=== PATIENT | female | born 1955 | race Caucasian/White ===

== ENCOUNTER → 2016-08-12 | Outpatient (CLI) | payer BC ==
[~2016-08-12] MED LIST: BACL5TA PO; COZA50TA PO; LEVO25TA5 PO; LIDO5OI EXT; LYRI100C10 PO; METO50TA2 PO; NEUR100C PO; OMEGCAP9 PO; PROB1TAB PO; PROZ20CA11 PO; ROBA750T4 PO; VALI5TAB PO; VITA100072 PO; VITA20008 PO; VITA400T15 PO; curamed PO; curamin PO
--- NOTE | 2016-08-18 00:26 | ECWPNPC ---
PATIENT NAME: ASHA FLOWER : 1955 GENDER: FEMALE VISIT DATE: 08/12/2016 DISCHARGE DATE: 08/12/16 1530 VISIT LOCKED DATE TIME: PHYSICIAN: MASHA AREVALO RESOURCE: MASHA AREVLAO REASON FOR APPOINTMENT 1. FIBROMIALGIA HISTORY OF PRESENT ILLNESS HISTORY OF PRESENT ILLNESS: HERE FOR F/U AND MANAGEMENT OF CHRONIC PAIN.PAIN IS ALL OVER BODY BUT WORSE AREA OF PAIN IS KNEE AND RIGHT ARM TAKING HYDROCODONE 5/325 BID.THIS MEDICATION IS NOT VERY HELPFUL ANYMORE.UNDER A TREMENDOUS AMOUNT OF STRESS.RATING PAIN VAS 8/10. FALL RISK SCREENING: SCREENING :NO FALLS IN THE PAST YEAR CURRENT MEDICATIONS TAKING METOPROLOL SUCCINATE 25 MG TABLET EXTENDED RELEASE 24 HOUR 1 TABLET ORALLY TWICE A DAY TAKING LOSARTAN POTASSIUM 50 MG TABLET 1 TABLET ORALLY ONCE A DAY TAKING LEVOTHYROXINE SODIUM 50 MCG TABLET 1 TABLET ORALLY EVERY OTHER DAY TAKING VITAMIN B12 1000 UNITS TABLET 1 TABLET ORALLY ONCE A DAY TAKING VITAMIN D 5000 UNITS TABLET ORALLY DAILY TAKING LEVOTHROID 75 MCG TABLET 1 TABLET ORALLY EVERY OTHER DAY TAKING PROZAC 40 MG CAPSULE 1 CAPSULE IN THE MORNING ORALLY TAKING SYMBICORT 160-4.5 MCG/ACT AEROSOL 2 PUFFS INHALATION TWICE A DAY NEEDED TAKING ALBUTEROL SULFATE (2.5 MG/3ML) 0.083% NEBULIZATION SOLUTION 3 ML INHALATION EVERY 6 HOURS NEEDED FOR SHORTNESS OF BREATH TAKING HYDROCODONE-ACETAMINOPHEN 5-325 MG TABLET 1 TABLET NEEDED FOR PAIN MDD2 ORALLY EVERY 8 HRS MDD2 NOT-TAKING DELSYM 30 MG/5ML LIQUID EXTENDED RELEASE 10 ML NEEDED ORALLY EVERY 12 HRS NOT-TAKING LEVOFLOXACIN 750 MG TABLET 1 TABLET ORALLY ONCE A DAY NOT-TAKING MUCINEX DM MAXIMUM STRENGTH 60-1200 MG TABLET EXTENDED RELEASE 12 HOUR 1 TABLET NEEDED ORALLY TWICE A DAY NOT-TAKING CETIRIZINE HCL 10 MG TABLET 1 TABLET NEEDED ORALLY ONCE A DAY NOT-TAKING FLONASE 50 MCG/DOSE INHALER 2 SPRAYS IN EACH NOSTRIL NASALLY ONCE A DAY MEDICATION LIST REVIEWED AND RECONCILED WITH THE PATIENT PAST MEDICAL HISTORY VITAMIN B12 DEFICIENCY IRRITABLE BOWEL SYNDROME DIVERTICULOSIS ASTHMA ABNORMAL PAP SMEAR/CRYO PANCREATITIS/2004 OBESITY HX. OF PROTEIN AND BLOOD IN URINE-SEE DR. 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 NEW PATIENT PAIN DIARY TODAY'S VISITNOTES FROM 0-10, WHAT LEVEL IS YOUR PAIN TODAY?0 PAIN CLINIC PFS, CLERGY, PUBLIC HEALTH REFERRALS PFS REFERRAL NEEDED?NO CLERGY REFERRAL NEEDED?NO PUBLIC HEALTH REFERRAL NEEDED?NO WAS THE PROVIDER NOTIFIED OF ANY PERTINENT INFO?NO PFS REFERRAL NEEDED?NO CLERGY REFERRAL NEEDED?NO PUBLIC HEALTH REFERRAL NEEDED?NO WAS THE PROVIDER NOTIFIED OF ANY PERTINENT INFO?NO REVIEW OF SYSTEMS CONSTITUTIONAL: ANY CHANGE IN YOUR MEDICAL CONDITION? NO . CHILLS NO . FEVER NO . INFECTION: DO YOU HAVE NEW INFECTIONS? NO . DO YOU HAVE HISTORY OF MRSA? NO . MUSCULOSKELETAL: ANY NEW PATTERNS OF PAIN OR NUMBNESS? YES, RIGHT HAND WITH DIFFICULTLY LIFTING, TYPING, AND WRITING. APPOINTMENT WITH ORTHOPEADICS REGARDING THIS. . GASTROENTEROLOGY: ANY NEW CHANGE IN BOWEL CONTROL? NO . GENITOURINARY: ANY NEW CHANGE IN BLADDER CONTROL? NO . IS THERE A CHANCE YOU COULD BE ? NO . HEMATOLOGY/LYMPH: DO YOU TAKE ANY BLOOD THINNERS? (FOR EXAMPLE- COUMADIN, PLAVIX, AGGRENOX, PLATEL, PRADAXA, OR XARELTO) NO . WHEN WAS YOUR LAST DOSE? DATE: TIME: . NEUROLOGY: HAVE YOU FALLEN IN THE PAST 6 MONTHS? NO . ANY NEW EXTREMITY NUMBNESS OR WEAKNESS? NO . CARDIOLOGY: DO YOU HAVE A PACEMAKER OR DEFIBRILLATOR? NO . RESPIRATORY: HAVE YOU BEEN SICK IN THE PAST WEEK? NO . FEVER NO . FLU LIKE SYMPTOMS? NO . COUGH NO . INTEGUMENTARY: DO YOU HAVE ANY RASHES OR OPEN SORES? NO . ALLERGIC/IMMUNO: ARE YOU ALLERGIC TO SHELLFISH OR IV DYE? NO . ANY NEW ALLERGIES? NO . PSYCHIATRIC: DO YOU HAVE THOUGHTS OF HURTING YOURSELF OR SOMEONE ELSE? NO . ARE YOU ABUSED, NEGLECTED, OR IN AN UNSAFE ENVIRONMENT? NO . ENDOCRINOLOGY: ARE YOU DIABETIC? NO . OTHER: DO YOU NEED ANY PRESCRIPTIONS? NO . IF YES, PLEASE LIST: ____ . ANY NEW PROBLEMS WITH YOUR MEDICATIONS? NO . WHEN DID YOU LAST EAT? ____ . WHEN DID YOU LAST DRINK? ____ . WHAT DID YOU LAST DRINK? ____ . NAME OF PERSON DRIVING YOU HOME? ____ . DO YOU HAVE ANY OTHER QUESTIONS OR CONCERNS NO . REVIEWED BY: PROVIDER: MASHA AGUIRRE . VITAL SIGNS WT 350.8 LBS, HT 66.5 IN, BMI 55.77 INDEX, BP 157/88 MM HG, HR 66 /MIN, RR 18 /MIN, TEMP 98.7 F, OXYGEN SAT % 96, NA INITIALS TL 1427, REVIEWED BY: CS. EXAMINATION CERVICAL SPINE/NECK: RANGE OF MOTION OF NECK:LIMITED IN ALL DIRECTIONS. MOTOR STRENGTH:DIMINISHED BILAT. UPPER EXTREMITIES. MYOFASCIAL TRIGGER POINTS:BILATERAL TRAPEZIUS R>L. ASSESSMENTS MYALGIA - M79.1 (PRIMARY) CHRONIC PRESCRIPTION OPIATE USE - Z79.891 TREATMENT MYALGIA REFILL HYDROCODONE-ACETAMINOPHEN TABLET, 5-325 MG, 1 TABLET NEEDED FOR PAIN MDD2, ORALLY, EVERY 8 HRS MDD2, 30 DAY(S), 60, REFILLS 0 START LYRICA CAPSULE, 75 MG, 1 CAPSULE, ORALLY, TWICE A DAY, 30 DAY(S), 60 CAPSULE, REFILLS 5 START NORCO TABLET, 7.5-325 MG, 1, ORALLY, Q8H PRN MDD3, 30 DAY(S), 90, REFILLS 0 NOTES: ISTOP REGISTRY REVIEWED AND DEMNOSTRATES COMPLLIANCE. BRINGS IN MEDICATIONS WHICH IS APPROPRIATE FOR WHAT WAS DISPENSED. RECENT URINE TOXICOLOGY REVIEWED. NO UNAUTHORIZED MEDICATIONS. NO ILLICIT SUBSTANCES AND PRESCRIBED MEDICATIONS WERE PRESENT. , RISKS AND BENEFITS OF NARCOTIC/OPIOD MEDICATIONS WERE REVIEWED WITH PATIENT - THIS INCLUDES BUT IS NOT LIMITED TO RISK OF DEPENDANCE/DEVELOPMENT OF ADDICTION, MOOD DISTURBANCE AND DEPRESSION, OSTEOPOROSIS, HORMONAL AND LABIDAL CHANGES, RESPIRATORY DEPRESSION AND . PATIENT IS ADVISED NOT TO DRIVE WHILE ON THESE MEDICATIONS. PROCEDURE CODES FA211 ESTABILISHED PATIENT [facility] CHARGE FOLLOW UP 2 MONTHS ELECTRONICALLY SIGNED BY TIMOTHY ALBERT ON 08/17/2016 AT 01:12 PM EST DISCLAIMER : THIS IS A VISIT SUMMARY EXTRACTED FROM THE [employer] CHART. IT IS NOT A COPY OF THE [employer] PROGRESS NOTE. [facility]
== END ==
LOC: M PAIN 14:40
PROVIDERS: ATTEND Nurse Practitioner Family
DX: Z09 Encounter for follow-up examination after completed treatment for conditions other than malignant neoplasm (principal); G89.29 Other chronic pain; M79.1 Myalgia; D51.0 Vitamin B12 deficiency anemia due to intrinsic factor deficiency; K58.9 Irritable bowel syndrome, unspecified; J45.909 Unspecified asthma, uncomplicated; E66.9 Obesity, unspecified; Z68.43 Body mass index [BMI] 50.0-59.9, adult; G47.30 Sleep apnea, unspecified; E07.9 Disorder of thyroid, unspecified; Z88.2 Allergy status to sulfonamides; Z79.891 Long term (current) use of opiate analgesic; Z79.899 Other long term (current) drug therapy

== ENCOUNTER → 2016-10-11 | Outpatient (CLI) | payer BC ==
[~2016-10-11] MED LIST changes: +HYDR-3713 PO; +LEVO75TA4 PO
--- NOTE | 2016-10-21 00:43 | ECWPNPC ---
PATIENT NAME: ASHA FLOWER : 1955 GENDER: FEMALE VISIT DATE: 10/11/2016 DISCHARGE DATE: 10/11/16 1520 VISIT LOCKED DATE TIME: PHYSICIAN: MASHA AREVALO RESOURCE: MASHA AREVALO REASON FOR APPOINTMENT 1. FOLLOWUP HISTORY OF PRESENT ILLNESS HISTORY OF PRESENT ILLNESS: HERE FOR F/U AND MANAGEMENT OF CHRONIC PAIN.PAIN IS ALL OVER BODY BUT WORSE AREA OF PAIN IS KNEE AND RIGHT ARM .STARTED ON LYRICA 75MG BID AT LAST VISIT.WHEN SHE WENT TO BID SHE NOTED SOME SWELLING SO SHE REDUCED TO ONCE DAILY AT BEDTIME.DOES REPORT SOME IMPROVEMENT IN ABILITY TO SLEEP.C/O FEELING FATIGUED AND IN A FOG.IS SCHEDULED FOR SURGERY ON RIGHT WRIST THIS MONTH.TAKING HYDROCODONE 5/325 BID.THIS MEDICATION IS NOT VERY HELPFUL ANYMORE.UNDER A TREMENDOUS AMOUNT OF STRESS.RATING PAIN VAS 7/10.DISCUSSED MEDICATION AND TREATMENT OPTIONS. PAIN THE PATIENT DESCRIBES THE PAIN... THE PATIENT DESCRIBES THE PAIN... FALL RISK SCREENING: SCREENING :NO FALLS IN THE PAST YEAR CURRENT MEDICATIONS TAKING METOPROLOL SUCCINATE 25 MG TABLET EXTENDED RELEASE 24 HOUR 1 TABLET ORALLY TWICE A DAY TAKING LOSARTAN POTASSIUM 50 MG TABLET 1 TABLET ORALLY ONCE A DAY TAKING LEVOTHYROXINE SODIUM 50 MCG TABLET 1 TABLET ORALLY EVERY OTHER DAY TAKING VITAMIN B12 1000 UNITS TABLET 1 TABLET ORALLY ONCE A DAY TAKING VITAMIN D 5000 UNITS TABLET ORALLY DAILY TAKING LEVOTHROID 75 MCG TABLET 1 TABLET ORALLY EVERY OTHER DAY TAKING PROZAC 40 MG CAPSULE 1 CAPSULE IN THE MORNING ORALLY TAKING SYMBICORT 160-4.5 MCG/ACT AEROSOL 2 PUFFS INHALATION TWICE A DAY NEEDED TAKING ALBUTEROL SULFATE (2.5 MG/3ML) 0.083% NEBULIZATION SOLUTION 3 ML INHALATION EVERY 6 HOURS NEEDED FOR SHORTNESS OF BREATH TAKING LYRICA 75 MG CAPSULE 1 CAPSULE ORALLY DAILY TAKING HYDROCODONE-ACETAMINOPHEN 5-325 MG TABLET 1 TABLET NEEDED FOR PAIN MDD2 ORALLY EVERY 8 HRS MDD2 NOT-TAKING NORCO 7.5-325 MG TABLET 1 ORALLY Q8H PRN MDD3 NOT-TAKING DELSYM 30 MG/5ML LIQUID EXTENDED RELEASE 10 ML NEEDED ORALLY EVERY 12 HRS NOT-TAKING LEVOFLOXACIN 750 MG TABLET 1 TABLET ORALLY ONCE A DAY NOT-TAKING MUCINEX DM MAXIMUM STRENGTH 60-1200 MG TABLET EXTENDED RELEASE 12 HOUR 1 TABLET NEEDED ORALLY TWICE A DAY NOT-TAKING CETIRIZINE HCL 10 MG TABLET 1 TABLET NEEDED ORALLY ONCE A DAY NOT-TAKING FLONASE 50 MCG/DOSE INHALER 2 SPRAYS IN EACH NOSTRIL NASALLY ONCE A DAY MEDICATION LIST REVIEWED AND RECONCILED WITH THE PATIENT PAST MEDICAL HISTORY VITAMIN B12 DEFICIENCY IRRITABLE BOWEL SYNDROME DIVERTICULOSIS ASTHMA ABNORMAL PAP SMEAR/CRYO PANCREATITIS/2004 OBESITY HX. OF PROTEIN AND BLOOD IN URINE-SEE DR. PAPPAS MANRIE WITH CPAP FIBROMYALGIA THYROID ISSUES NERVE CONDUCTION TEST WITH NEUROLOGY WAS NEGATIVE ALLERGIES SULFAMETHOXAZOLE: GETS YEASTS INFECTIONS EASILY ON THIS: SIDE EFFECTS SOCIAL HISTORY GENERAL: PAIN CLINIC PFS, CLERGY, PUBLIC HEALTH REFERRALS CLERGY REFERRAL NEEDED?NO WAS THE PROVIDER NOTIFIED OF ANY PERTINENT INFO?NO PFS REFERRAL NEEDED?NO PUBLIC HEALTH REFERRAL NEEDED?NO PATIENT: ____. REVIEW OF SYSTEMS CONSTITUTIONAL: ANY CHANGE IN YOUR MEDICAL CONDITION? YES, FORGETFULLNESS THE PAST MONTH . RECENT ILLNESS DENIES . CHILLS NO . FEVER NO . WEIGHT LOSS DENIES . INFECTION: DO YOU HAVE NEW INFECTIONS? NO . DO YOU HAVE HISTORY OF MRSA? NO . MUSCULOSKELETAL: ANY NEW PATTERNS OF PAIN OR NUMBNESS? YES . GASTROENTEROLOGY: ANY NEW CHANGE IN BOWEL CONTROL? NO . GENITOURINARY: ANY NEW CHANGE IN BLADDER CONTROL? NO . IS THERE A CHANCE YOU COULD BE ? NO . HEMATOLOGY/LYMPH: DO YOU TAKE ANY BLOOD THINNERS? (FOR EXAMPLE- COUMADIN, PLAVIX, AGGRENOX, PLATEL, PRADAXA, OR XARELTO) NO . WHEN WAS YOUR LAST DOSE? DATE: TIME: . NEUROLOGY: HAVE YOU FALLEN IN THE PAST 6 MONTHS? NO . ANY NEW EXTREMITY NUMBNESS OR WEAKNESS? NO . CARDIOLOGY: DO YOU HAVE A PACEMAKER OR DEFIBRILLATOR? NO . CHEST PAIN DENIES . SHORTNESS OF BREATH DENIES . RESPIRATORY: HAVE YOU BEEN SICK IN THE PAST WEEK? NO . FEVER NO . FLU LIKE SYMPTOMS? NO . COUGH NO, DENIES . SHORTNESS OF BREATH DENIES . INTEGUMENTARY: DO YOU HAVE ANY RASHES OR OPEN SORES? NO . ALLERGIC/IMMUNO: ARE YOU ALLERGIC TO SHELLFISH OR IV DYE? NO . ANY NEW ALLERGIES? NO . PSYCHIATRIC: DO YOU HAVE THOUGHTS OF HURTING YOURSELF OR SOMEONE ELSE? NO . ARE YOU ABUSED, NEGLECTED, OR IN AN UNSAFE ENVIRONMENT? NO . ENDOCRINOLOGY: ARE YOU DIABETIC? NO . OTHER: DO YOU NEED ANY PRESCRIPTIONS? YES . IF YES, PLEASE LIST: PAIN MED . ANY NEW PROBLEMS WITH YOUR MEDICATIONS? NO . WHEN DID YOU LAST EAT? ____ . WHEN DID YOU LAST DRINK? ____ . WHAT DID YOU LAST DRINK? ____ . NAME OF PERSON DRIVING YOU HOME? ____ . DO YOU HAVE ANY OTHER QUESTIONS OR CONCERNS YES, RIGHT WRIST SURGERY 10/19/16 . REVIEWED BY: PROVIDER: MASHA AGUIRRE . VITAL SIGNS WT 346.2 LBS, HT 66.5 IN, BMI 55.04 INDEX, BP 123/78 MM HG, HR 73 /MIN, RR 16 /MIN, TEMP 98.8 F, OXYGEN SAT % 94%, NA INITIALS SJ 1442, REVIEWED BY: CS. EXAMINATION CERVICAL SPINE/NECK: RANGE OF MOTION OF NECK:LIMITED IN ALL DIRECTIONS. MOTOR STRENGTH:DIMINISHED BILAT. UPPER EXTREMITIES. MYOFASCIAL TRIGGER POINTS:BILATERAL TRAPEZIUS R>L. GENERAL EXAMINATION: LUNGS:LUNG SOUNDS ARE CLEAR. HEART:HEART RATE REGULAR. MUSCULOSKELETAL:*, MUSCLE STRENGTH TESTING 11/05 BLE.MULTIPLE AREAS OF TENDER SPOTS BILAT. INDICATIVE OF FIBROMYALGIA. DIAGNOSTIC: . ASSESSMENTS MYALGIA - M79.1 (PRIMARY) CHRONIC PRESCRIPTION OPIATE USE - Z79.891 TREATMENT MYALGIA REFILL HYDROCODONE-ACETAMINOPHEN TABLET, 5-325 MG, 1 TABLET NEEDED FOR PAIN MDD2, ORALLY, EVERY 8 HRS MDD2, 30 DAY(S), 60, REFILLS 0 INCREASE LYRICA CAPSULE, 75 MG, 2, ORALLY, QHS, 30 DAY(S), 60, REFILLS 2 NOTES: ISTOP REGISTRY REVIEWED AND DEMNOSTRATES COMPLLIANCE. BRINGS IN MEDICATIONS WHICH IS APPROPRIATE FOR WHAT WAS DISPENSED. RECENT URINE TOXICOLOGY REVIEWED. NO UNAUTHORIZED MEDICATIONS. NO ILLICIT SUBSTANCES AND PRESCRIBED MEDICATIONS WERE PRESENT. , PATIENT WAS ADVISED TO START A WALKING PROGRAM TO STRENGTHEN LUMBAR PARASPINAL MUSCLES AND IMPROVE MOBILITY. THEY WERE ADVISED THAT THIS WILL IMPROVE WEIGHT LOSS AND ALSO DEPRESSION/FIBROMYALGIA SYMPTOMS. ADVISED TO WALK 10 MINUTES EVERY OTHER DAY ON A FLAT SURFACE. EMPHASIZED THE IMPORTANCE OF DOING THIS CONSISTANTLY AND NOT SPORATICALLY TO AVOID INJURY. STRONG ADVISED NOT TO DO MORE THAN 10 MINUTES EVERY OTHER DSY FOR THE FIRST 4 WEEKS. PROCEDURE CODES FA211 ESTABILISHED PATIENT [facility] CHARGE DISPOSITION & COMMUNICATION FOLLOW UP 4 WEEKS ELECTRONICALLY SIGNED BY TIMOTHY ALBERT ON 10/20/2016 AT 01:14 PM EDT DISCLAIMER : THIS IS A VISIT SUMMARY EXTRACTED FROM THE [employer] CHART. IT IS NOT A COPY OF THE [employer] PROGRESS NOTE. DEIDRE
== END ==
LOC: M PAIN 14:40
PROVIDERS: ATTEND Nurse Practitioner Family
DX: G89.29 Other chronic pain (principal); M79.1 Myalgia; D51.9 Vitamin B12 deficiency anemia, unspecified; K58.9 Irritable bowel syndrome, unspecified; J45.909 Unspecified asthma, uncomplicated; E66.9 Obesity, unspecified; Z68.43 Body mass index [BMI] 50.0-59.9, adult; G47.33 Obstructive sleep apnea (adult) (pediatric); Z88.2 Allergy status to sulfonamides; Z79.899 Other long term (current) drug therapy

== ENCOUNTER → 2016-10-19 | Day surgery (SDC) | payer BC ==
[~2016-10-19] VITALS: Ht 167.6 cm; Wt 155.6 kg
[~2016-10-19] MED LIST changes: +GLYCOPYRROLATE INJ 0.2 MG/ML 2 ML VIAL As Ordered ONE; +HYDROmorphone HCL 1 MG/ML SYRINGE (J1170) As Ordered ONE; +KETOROLAC 30 MG/ML VIAL (J1885) As Ordered ONE; +KETOROLAC 30 MG/ML VIAL (J1885) IV PRN; +LIDOCAINE 2% INJ 100 MG/5 ML SDV (FOR ANES.) As Ordered ONE; +LR 1,000 ML IV SCH; +METOCLOPRAMIDE INJ 10MG/2ML VIAL (J2765) IV PRN; +MIDAZOLAM INJ 2 MG/2 ML VIAL (J2250) As Ordered ONE; +MORPHINE 4 MG/ML 1ML SYRINGE IV PRN; +NEOSTIGMINE 1MG/ML 5 ML SYRINGE (J2710) As Ordered ONE; +NORCO, ANEXSIA 5/325MG TABLET (HYDROcodone/ACETAMINOPHEN) PO PRN; +ONDANSETRON 4MG/2ML VIAL (J2405) As Ordered ONE; +ONDANSETRON 4MG/2ML VIAL (J2405) IV PRN; +PERCOCET 5MG/325MG TAB PO PRN; +PROPOFOL 200 MG/20 ML VIAL As Ordered ONE; +ceFAZolin 1GM INJ (J0690) As Ordered ONE; +fentaNYL 100 MCG/2 ML INJECTION (J3010) As Ordered ONE
[2016-10-19] MEDS: fentaNYL 100 MCG/2 ML INJECTION (J3010) IV PRN ×4 (11:55→12:16)
[2016-10-19] MEDS: HYDROmorphone HCL 1 MG/ML SYRINGE (J1170) IV PRN ×5 (12:36→13:08)
--- NOTE | 2016-10-19 12:46 | RO ---
DATE OF PROCEDURE: 10/19/2016 PREPROCEDURE DIAGNOSIS: Right thumb CMC joint arthritis. POSTPROCEDURE DIAGNOSIS: Right thumb CMC joint arthritis. PROCEDURE: Right thumb CMC joint arthroplasty using a flexor carpi radialis/anchovy technique. SURGEON: Dr. Dhiraj Villa PROCESSING LEAD: Mr. Stalin Alexander. ANESTHESIA: General endotracheal tube anesthetic. COMPLICATIONS: None. ESTIMATED BLOOD LOSS: Less than 20 mL. DESCRIPTION OF PROCEDURE: Antibiotics were given intravenous preoperatively then a successful general endotracheal tube anesthetic was established. A tourniquet was placed on the right arm and not inflated. The right upper extremity was then prepped and draped in the usual sterile fashion, then elevated. After an appropriate time-out, the tourniquet was inflated. I made a small slightly angled incision across the volar radial aspect of the base of the right thumb. Very superficial careful dissection was performed and the small veins were coagulate with the Bovie cautery. I did identify two radial nerves sensory branches, which were protected. I then reflected the abductor polices brevis volarly and incised the capsule of the CMC joint. The carefully sub periosteally dissected around the trapezium bone with a small 64 naknek blade as well as a Crocker elevator and other elevators. I then divided the bone in two with a small osteotome and then took out the volar fragment first taking great care to protect the underlying flexor carpi radialis tendon. The I removed the remaining half in a similar fashion using subperiosteal dissection. Then I removed the piece almost and completely total with some small fragments were removed with the rongeur. I copiously irrigated out this area. I then made a small transverse incision along the volar aspect of the wrist identifying flexor carpi radialis. Then I made another incision more proximal along the forearm, identified the proximal portion of the flexor carpi radialis and then divided it. Then pulled it into the distal wound and then pulled it out from the wound where the trapezium had been resected. I then placed a small #1 silky Polydek suture in the capsule in the base of the wound to secure the anchovy later on. I then used a 3.2 mm drill to drill on the thumb nail surface of the proximal aspect of the thumb metacarpal exiting at the base of the bone and then I expanded it with a 4.5 drill. I then tubularized the flexor carpi radialis end. Then I passed a Gale suture passer through the proximal portion of the metacarpal and then I used the 0 PDS sutures that I used to tubularize the FCR. To pass up through the proximal end of the thumb metacarpal. Then I folded it back onto itself and secured it as such that it folds around the base of the thumb metacarpal holding it as a suspensory ligament. The remaining portion of the flexor carpi radialis tendon was anchovied with two Tyler needles using the previously passed silky Polydek. Then the whole construct was secured with two #3-0 PDS sutures and then I dumped the anchovy deep into the wound after irrigating copiously. Then I secured it by tying silky Polydek over the top of the anchovy. The deep capsule was then closed with interrupted #3-0 PDS suture irrigating in and then we let the tourniquet down and then irrigated again, all the wounds. Then closed the deep subdermal tissues with an interrupted #3-0 PDS and then the skin was closed with a #5-0 nylon sutures and dressed with an Adaptic dry sterile bulky dressing and then a thumb spike 5-inch splint and toni wrap applied. She was then awakened from general endotracheal tube anesthesia after having tolerated the procedure well and transferred to the recovery room in stable condition. There were no intraoperative complications. Mrs. Alexander was critical to the success of the procedure by helping with appropriate soft tissue retraction and distraction as well as helping to close the wound and helping apply the splint. Helping to prepare the patient amongst many other tasks.
[2016-10-19 14:20] VITALS: BP 135/63
== END | disposition home or self-care (01) ==
LOC: M SDC 07:45
PROVIDERS: ATTEND Orthopaedic Surgery
DX: M18.11 Unilateral primary osteoarthritis of first carpometacarpal joint, right hand (principal); E03.9 Hypothyroidism, unspecified; I10 Essential (primary) hypertension; J45.909 Unspecified asthma, uncomplicated; K44.9 Diaphragmatic hernia without obstruction or gangrene; R06.02 Shortness of breath; R06.83 Snoring; G47.33 Obstructive sleep apnea (adult) (pediatric); Z88.2 Allergy status to sulfonamides; Z79.899 Other long term (current) drug therapy; Z87.820 Personal history of traumatic brain injury; Z90.710 Acquired absence of both cervix and uterus; Z96.652 Presence of left artificial knee joint; Z96.692 Finger-joint replacement of left hand
CPT/HCPCS: 25447; J0690; J1170; J1885; J2250; J2405; J2710; J3010

== ENCOUNTER → 2016-11-16 | Outpatient (CLI) | payer BC ==
[~2016-11-16] MED LIST changes: -GLYCOPYRROLATE INJ 0.2 MG/ML 2 ML VIAL As Ordered ONE; -HYDROmorphone HCL 1 MG/ML SYRINGE (J1170) As Ordered ONE; -KETOROLAC 30 MG/ML VIAL (J1885) As Ordered ONE; -KETOROLAC 30 MG/ML VIAL (J1885) IV PRN; -LIDOCAINE 2% INJ 100 MG/5 ML SDV (FOR ANES.) As Ordered ONE; -LR 1,000 ML IV SCH; -METOCLOPRAMIDE INJ 10MG/2ML VIAL (J2765) IV PRN; -MIDAZOLAM INJ 2 MG/2 ML VIAL (J2250) As Ordered ONE; -MORPHINE 4 MG/ML 1ML SYRINGE IV PRN; -NEOSTIGMINE 1MG/ML 5 ML SYRINGE (J2710) As Ordered ONE; -NORCO, ANEXSIA 5/325MG TABLET (HYDROcodone/ACETAMINOPHEN) PO PRN; -ONDANSETRON 4MG/2ML VIAL (J2405) As Ordered ONE; -ONDANSETRON 4MG/2ML VIAL (J2405) IV PRN; -PERCOCET 5MG/325MG TAB PO PRN; -PROPOFOL 200 MG/20 ML VIAL As Ordered ONE; -ceFAZolin 1GM INJ (J0690) As Ordered ONE; -fentaNYL 100 MCG/2 ML INJECTION (J3010) As Ordered ONE
--- NOTE | 2016-11-16 23:41 | ECWPNPC ---
PATIENT NAME: ASHA FLOWER : 1955 GENDER: FEMALE VISIT DATE: 11/16/2016 DISCHARGE DATE: 11/16/16 1042 VISIT LOCKED DATE TIME: PHYSICIAN: MASHA AREVALO RESOURCE: MASHA AREVALO REASON FOR APPOINTMENT 1. CHRONIC PAIN HISTORY OF PRESENT ILLNESS HISTORY OF PRESENT ILLNESS: HERE FOR F/U AND MANAGEMENT OF CHRONIC PAIN.PAIN IS ALL OVER BODY BUT WORSE AREA OF PAIN IS KNEE AND RIGHT ARM .STARTED ON LYRICA 75MG DAILY AT NIGHT AND IS GETTING SOME DAYTIME FOG AND FATIGUE. TAKING HYDROCODONE 5/325 BID.THIS MEDICATION IS NOT VERY HELPFUL ANYMORE.UNDER A TREMENDOUS AMOUNT OF STRESS.RATING PAIN VAS 7/10.DISCUSSED MEDICATION AND TREATMENT OPTIONS. PAIN THE PATIENT DESCRIBES THE PAIN... THE PATIENT DESCRIBES THE PAIN... THE PATIENT DESCRIBES THE PAIN... FALL RISK SCREENING: SCREENING :NO FALLS IN THE PAST YEAR CURRENT MEDICATIONS TAKING METOPROLOL SUCCINATE 25 MG TABLET EXTENDED RELEASE 24 HOUR 1 TABLET ORALLY TWICE A DAY TAKING LOSARTAN POTASSIUM 50 MG TABLET 1 TABLET ORALLY ONCE A DAY TAKING LEVOTHYROXINE SODIUM 50 MCG TABLET 1 TABLET ORALLY EVERY OTHER DAY TAKING VITAMIN B12 1000 UNITS TABLET 1 TABLET ORALLY ONCE A DAY TAKING VITAMIN D 5000 UNITS TABLET ORALLY DAILY TAKING LEVOTHROID 75 MCG TABLET 1 TABLET ORALLY EVERY OTHER DAY TAKING PROZAC 40 MG CAPSULE 1 CAPSULE IN THE MORNING ORALLY TAKING ALBUTEROL SULFATE (2.5 MG/3ML) 0.083% NEBULIZATION SOLUTION 3 ML INHALATION EVERY 6 HOURS NEEDED FOR SHORTNESS OF BREATH TAKING HYDROCODONE-ACETAMINOPHEN 5-325 MG TABLET 1 TABLET NEEDED FOR PAIN MDD2 ORALLY EVERY 8 HRS MDD2 TAKING LYRICA 75 MG CAPSULE 2 ORALLY QHS TAKING FLONASE NEEDED TAKING CLARITIN 10 MG TABLET 1 TABLET ORALLY NEEDED TAKING DOXYCYCLINE HYCLATE 100 MG TABLET 1 TABLET ORALLY EVERY 12 HRS TAKING DIFLUCAN 150 MG TABLET 1 TABLET ORALLY TAKE NOW; REPEAT IN 72 HOURS IF YOUR SYMPTOMS PERSIST NOT-TAKING SYMBICORT 160-4.5 MCG/ACT AEROSOL 2 PUFFS INHALATION TWICE A DAY NEEDED NOT-TAKING NORCO 7.5-325 MG TABLET 1 ORALLY Q8H PRN MDD3 NOT-TAKING DELSYM 30 MG/5ML LIQUID EXTENDED RELEASE 10 ML NEEDED ORALLY EVERY 12 HRS NOT-TAKING LEVOFLOXACIN 750 MG TABLET 1 TABLET ORALLY ONCE A DAY NOT-TAKING MUCINEX DM MAXIMUM STRENGTH 60-1200 MG TABLET EXTENDED RELEASE 12 HOUR 1 TABLET NEEDED ORALLY TWICE A DAY NOT-TAKING CETIRIZINE HCL 10 MG TABLET 1 TABLET NEEDED ORALLY ONCE A DAY NOT-TAKING FLONASE 50 MCG/DOSE INHALER 2 SPRAYS IN EACH NOSTRIL NASALLY ONCE A DAY MEDICATION LIST REVIEWED AND RECONCILED WITH THE PATIENT PAST MEDICAL HISTORY VITAMIN B12 DEFICIENCY IRRITABLE BOWEL SYNDROME DIVERTICULOSIS ASTHMA ABNORMAL PAP SMEAR/CRYO PANCREATITIS/2003 OBESITY HX. OF PROTEIN AND BLOOD IN URINE-SEE DR. PAPPAS MARNIE WITH CPAP FIBROMYALGIA THYROID ISSUES NERVE CONDUCTION TEST WITH NEUROLOGY WAS NEGATIVE ALLERGIES SULFAMETHOXAZOLE: GETS YEASTS INFECTIONS EASILY ON THIS: SIDE EFFECTS SURGICAL HISTORY HYSTERECTOMY WITH CERVICAL PRESERVATION 1996 KNEE REPLACEMENT/LEFT 10/09 T & A CHOLECYSTECTOMY 2003 COLONOSCOPY/POLYP REMOVED/BENIGN 04/13 PARTIAL BOWEL REMOVED FOR CHRONIC DIVERTICULITIS RIGHT WRIST 10/2016 HOSPITALIZATION/MAJOR DIAGNOSTIC PROCEDURE PANCREATITIS SUB DURAL HEMATOMA SURGERY RELATED REVIEW OF SYSTEMS CONSTITUTIONAL: ANY CHANGE IN YOUR MEDICAL CONDITION? YES. PT STATES SHE HAD SURGERY ON RIGHT WRIST 10/2016 TO REPLACE TENDON FOR ARTHRITIS. PT STATES PROCEDURE WAS CALLED &QUOT;AN ANCHOVEY&QUOT;. CAST NOTED TO RIGHT FOREARM. PT STATES LAST VISIT LYRICA WAS INCREASED TO 2 TABLETS NIGHTLY. PT STATES THIS CHANGE MADE HER FEEL SLUGGISH AND CONFUSED THE FOLLOWING DAYS. PT DECREASED DOSE TO 1 NIGHTLY, BUT CONFUSION PERSISTS. PT REPORTS CONFUSION 1-1 1/2 YEARS. PT REPORTS PAIN IS 7/10. PT STATES SHE HAS STARTED WALKING MORE, WHICH HAS HELPED. PT C/O BILAT UPPER BACK PAIN 8/10, PREVIOUSLY TX WITH TPI, PT WOULD LIKE TO DISCUSS REPEATING TPI. . CHILLS NO . FEVER NO . INFECTION: DO YOU HAVE NEW INFECTIONS? NO . DO YOU HAVE HISTORY OF MRSA? NO . MUSCULOSKELETAL: ANY NEW PATTERNS OF PAIN OR NUMBNESS? NO . GASTROENTEROLOGY: ANY NEW CHANGE IN BOWEL CONTROL? NO . GENITOURINARY: ANY NEW CHANGE IN BLADDER CONTROL? NO . IS THERE A CHANCE YOU COULD BE ? NO . HEMATOLOGY/LYMPH: DO YOU TAKE ANY BLOOD THINNERS? (FOR EXAMPLE- COUMADIN, PLAVIX, AGGRENOX, PLATEL, PRADAXA, OR XARELTO) NO . WHEN WAS YOUR LAST DOSE? DATE: TIME: . NEUROLOGY: HAVE YOU FALLEN IN THE PAST 6 MONTHS? NO . ANY NEW EXTREMITY NUMBNESS OR WEAKNESS? NO . CARDIOLOGY: DO YOU HAVE A PACEMAKER OR DEFIBRILLATOR? NO . RESPIRATORY: HAVE YOU BEEN SICK IN THE PAST WEEK? NO . FEVER NO . FLU LIKE SYMPTOMS? NO . COUGH NO . INTEGUMENTARY: DO YOU HAVE ANY RASHES OR OPEN SORES? NO . ALLERGIC/IMMUNO: ARE YOU ALLERGIC TO SHELLFISH OR IV DYE? NO . ANY NEW ALLERGIES? NO . PSYCHIATRIC: DO YOU HAVE THOUGHTS OF HURTING YOURSELF OR SOMEONE ELSE? NO . ARE YOU ABUSED, NEGLECTED, OR IN AN UNSAFE ENVIRONMENT? NO . ENDOCRINOLOGY: ARE YOU DIABETIC? NO . OTHER: DO YOU NEED ANY PRESCRIPTIONS? YES, HYDROCODONE . IF YES, PLEASE LIST: ____ . ANY NEW PROBLEMS WITH YOUR MEDICATIONS? NO . WHEN DID YOU LAST EAT? ____ . WHEN DID YOU LAST DRINK? ____ . WHAT DID YOU LAST DRINK? ____ . NAME OF PERSON DRIVING YOU HOME? ____ . DO YOU HAVE ANY OTHER QUESTIONS OR CONCERNS NO . REVIEWED BY: PROVIDER: MASHA AGUIRRE . VITAL SIGNS WT 349.8 LBS, HT 66.5 IN, BMI 55.61 INDEX, BP 163/92 MM HG, HR 64 /MIN, RR 16 /MIN, TEMP 97.5 F, OXYGEN SAT % 96%, NA INITIALS SC 09:48. EXAMINATION CERVICAL SPINE/NECK: RANGE OF MOTION OF NECK:LIMITED IN ALL DIRECTIONS. MOTOR STRENGTH:DIMINISHED BILAT. UPPER EXTREMITIES. MYOFASCIAL TRIGGER POINTS:BILATERAL TRAPEZIUS R>L. GENERAL EXAMINATION: LUNGS:LUNG SOUNDS ARE CLEAR. HEART:HEART RATE REGULAR. MUSCULOSKELETAL:*, MUSCLE STRENGTH TESTING 5/5 BLE.MULTIPLE AREAS OF TENDER SPOTS BILAT. INDICATIVE OF FIBROMYALGIA. DIAGNOSTIC: . ASSESSMENTS MYALGIA - M79.1 (PRIMARY) CHRONIC PRESCRIPTION OPIATE USE - Z79.891 TREATMENT MYALGIA REFILL HYDROCODONE-ACETAMINOPHEN TABLET, 5-325 MG, 1 TABLET NEEDED FOR PAIN MDD2, ORALLY, EVERY 8 HRS MDD2, 30 DAY(S), 60, REFILLS 0 REFILL LYRICA CAPSULE, 25 MG, 1, ORALLY, TID MDD3, 30 DAY(S), 90, REFILLS 2 PROCEDURE CODES FA211 ESTABILISHED PATIENT [facility] CHARGE DISPOSITION & COMMUNICATION FOLLOW UP 2 MONTHS ELECTRONICALLY SIGNED BY TIMOTHY ALBERT ON 11/16/2016 AT 03:21 PM EDT DISCLAIMER : THIS IS A VISIT SUMMARY EXTRACTED FROM THE [employer] CHART. IT IS NOT A COPY OF THE [employer] PROGRESS NOTE. DEIDRE
== END ==
LOC: M PAIN 09:10
PROVIDERS: ATTEND Nurse Practitioner Family
DX: G89.29 Other chronic pain (principal); M25.569 Pain in unspecified knee; M79.601 Pain in right arm; M79.1 Myalgia; D51.9 Vitamin B12 deficiency anemia, unspecified; J45.909 Unspecified asthma, uncomplicated; E66.9 Obesity, unspecified; Z68.43 Body mass index [BMI] 50.0-59.9, adult; G47.33 Obstructive sleep apnea (adult) (pediatric); Z88.2 Allergy status to sulfonamides; Z79.891 Long term (current) use of opiate analgesic; Z79.899 Other long term (current) drug therapy

== ENCOUNTER 2016-11-30 08:23 | Outpatient (RCR) | payer BC | END 2016-12-01 | LOC: M OT 08:23 | PROVIDERS: ATTEND Orthopaedic Surgery | DX: Z51.89 Encounter for other specified aftercare (principal); Z96.631 Presence of right artificial wrist joint ==

== ENCOUNTER → 2016-12-06 | Outpatient (CLI) | payer BC ==
[~2016-12-06] MED LIST changes: +BUPIVACAINE HCL 0.25% 10 ML VIAL As Ordered ONE; +BUPIVACAINE HCL 0.25% 30 ML VIAL As Ordered ONE; +TRIAMCINOLONE ACETONIDE SUSP 40 MG/ML VIAL (J3301) As Ordered ONE; +diazePAM 5 MG TAB As Ordered ONE; +oxyCODONE 5MG TAB As Ordered ONE
--- NOTE | 2016-12-12 23:57 | ECWPNPC ---
PATIENT NAME: ASHA FLOWER : 1955 GENDER: FEMALE VISIT DATE: 12/06/2016 DISCHARGE DATE: 12/06/16 105 VISIT LOCKED DATE TIME: PHYSICIAN: SYEDA EVANS RESOURCE: SYEDA EVANS REASON FOR APPOINTMENT 1. TPI HISTORY OF PRESENT ILLNESS HISTORY OF PRESENT ILLNESS: PAIN THE PATIENT DESCRIBES THE PAIN... FALL RISK SCREENING: SCREENING :NO FALLS IN THE PAST YEAR CURRENT MEDICATIONS TAKING METOPROLOL SUCCINATE 25 MG TABLET EXTENDED RELEASE 24 HOUR 1 TABLET ORALLY TWICE A DAY, NOTES: 12-06-16629 TAKING LOSARTAN POTASSIUM 50 MG TABLET 1 TABLET ORALLY ONCE A DAY, NOTES: 12-06-16629 TAKING LEVOTHYROXINE SODIUM 50 MCG TABLET 1 TABLET ORALLY EVERY OTHER DAY, NOTES: 12-06-16629 TAKING VITAMIN B12 1000 UNITS TABLET 1 TABLET ORALLY ONCE A DAY, NOTES: 12-06-16629 TAKING VITAMIN D 5000 UNITS TABLET ORALLY DAILY, NOTES: 12-06-16629 TAKING LEVOTHROID 75 MCG TABLET 1 TABLET ORALLY EVERY OTHER DAY, NOTES: 12-05-16799 TAKING PROZAC 40 MG CAPSULE 1 CAPSULE IN THE MORNING ORALLY , NOTES: 12-06-16629 TAKING ALBUTEROL SULFATE (2.5 MG/3ML) 0.083% NEBULIZATION SOLUTION 3 ML INHALATION EVERY 6 HOURS NEEDED FOR SHORTNESS OF BREATH, NOTES: NONE TAKING FLONASE NEEDED, NOTES: NONE TAKING CLARITIN 10 MG TABLET 1 TABLET ORALLY NEEDED, NOTES: NONE TAKING HYDROCODONE-ACETAMINOPHEN 5-325 MG TABLET 1 TABLET NEEDED FOR PAIN MDD2 ORALLY EVERY 8 HRS MDD2, NOTES: 12-06-16599 TAKING LYRICA 25 MG CAPSULE 1 ORALLY TID MDD3, NOTES: 12-06-16629 NOT-TAKING MUCINEX DM MAXIMUM STRENGTH 60-1200 MG TABLET EXTENDED RELEASE 12 HOUR 1 TABLET NEEDED ORALLY TWICE A DAY NOT-TAKING FLONASE 50 MCG/DOSE INHALER 2 SPRAYS IN EACH NOSTRIL NASALLY ONCE A DAY DISCONTINUED DOXYCYCLINE HYCLATE 100 MG TABLET 1 TABLET ORALLY EVERY 12 HRS, NOTES: NONE DISCONTINUED DIFLUCAN 150 MG TABLET 1 TABLET ORALLY TAKE NOW; REPEAT IN 72 HOURS IF YOUR SYMPTOMS PERSIST DISCONTINUED SYMBICORT 160-4.5 MCG/ACT AEROSOL 2 PUFFS INHALATION TWICE A DAY NEEDED DISCONTINUED NORCO 7.5-325 MG TABLET 1 ORALLY Q8H PRN MDD3 DISCONTINUED DELSYM 30 MG/5ML LIQUID EXTENDED RELEASE 10 ML NEEDED ORALLY EVERY 12 HRS DISCONTINUED LEVOFLOXACIN 750 MG TABLET 1 TABLET ORALLY ONCE A DAY DISCONTINUED CETIRIZINE HCL 10 MG TABLET 1 TABLET NEEDED ORALLY ONCE A DAY MEDICATION LIST REVIEWED AND RECONCILED WITH THE PATIENT PAST MEDICAL HISTORY VITAMIN B12 DEFICIENCY IRRITABLE BOWEL SYNDROME DIVERTICULOSIS ASTHMA ABNORMAL PAP SMEAR/CRYO PANCREATITIS/2004 OBESITY HX. OF PROTEIN AND BLOOD IN URINE-SEE DR. PAPPAS MARNIE WITH CPAP FIBROMYALGIA THYROID ISSUES NERVE CONDUCTION TEST WITH NEUROLOGY WAS NEGATIVE ALLERGIES SULFAMETHOXAZOLE: GETS YEASTS INFECTIONS EASILY ON THIS: SIDE EFFECTS SURGICAL HISTORY HYSTERECTOMY WITH CERVICAL PRESERVATION 1996 KNEE REPLACEMENT/LEFT 10/09 T & A CHOLECYSTECTOMY 2003 COLONOSCOPY/POLYP REMOVED/BENIGN 04/13 PARTIAL BOWEL REMOVED FOR CHRONIC DIVERTICULITIS RIGHT WRIST 10/2016 SOCIAL HISTORY GENERAL: TOBACCO USE ARE YOU A:NONSMOKER VAPORNO E-CIGARETTENO HIV / HEP-C SCREENING HIV TEST OFFERED TO PATIENT:YES DATE OFFERED:10/29/2016 TEST ACCEPTED:NO REASON:PATIENT DECLINED HEP-C TEST OFFERED TO PATIENT:YES DATE OFFERED:10/29/2016 TEST ACCEPTED:NO REASON:PATIENT DECLINED LEARNING BARRIERS / SPECIAL NEEDS BARRIERS TO LEARNING?NO HEARING IMPAIRED?NO VISION IMPAIRED?NO COGNITIVELY IMPAIRED?NO READINESS TO LEARN?YES LEARNING PREFERENCES?NO LEARNING CAPABILITIES PRESENT?YES EMOTIONAL BARRIERS?NO SPECIAL DEVICES?NO ASSEMBLER TUBING NEEDED?NO PAIN CLINIC PFS, CLERGY, PUBLIC HEALTH REFERRALS CLERGY REFERRAL NEEDED?NO WAS THE PROVIDER NOTIFIED OF ANY PERTINENT INFO?NO PFS REFERRAL NEEDED?NO PUBLIC HEALTH REFERRAL NEEDED?NO PATIENT: ____. HOSPITALIZATION/MAJOR DIAGNOSTIC PROCEDURE PANCREATITIS SUB DURAL HEMATOMA SURGERY RELATED REVIEW OF SYSTEMS CONSTITUTIONAL: ANY CHANGE IN YOUR MEDICAL CONDITION? NO . CHILLS NO . FEVER NO . INFECTION: DO YOU HAVE NEW INFECTIONS? NO . DO YOU HAVE HISTORY OF MRSA? NO . MUSCULOSKELETAL: ANY NEW PATTERNS OF PAIN OR NUMBNESS? NO . GASTROENTEROLOGY: ANY NEW CHANGE IN BOWEL CONTROL? NO . GENITOURINARY: ANY NEW CHANGE IN BLADDER CONTROL? NO . IS THERE A CHANCE YOU COULD BE ? NO . HEMATOLOGY/LYMPH: DO YOU TAKE ANY BLOOD THINNERS? (FOR EXAMPLE- COUMADIN, PLAVIX, AGGRENOX, PLATEL, PRADAXA, OR XARELTO) NO . WHEN WAS YOUR LAST DOSE? DATE: TIME: . NEUROLOGY: HAVE YOU FALLEN IN THE PAST 6 MONTHS? NO . ANY NEW EXTREMITY NUMBNESS OR WEAKNESS? NO . CARDIOLOGY: DO YOU HAVE A PACEMAKER OR DEFIBRILLATOR? NO . RESPIRATORY: HAVE YOU BEEN SICK IN THE PAST WEEK? NO . FEVER NO . FLU LIKE SYMPTOMS? NO . COUGH NO . INTEGUMENTARY: DO YOU HAVE ANY RASHES OR OPEN SORES? NO . ALLERGIC/IMMUNO: ARE YOU ALLERGIC TO SHELLFISH OR IV DYE? NO . ANY NEW ALLERGIES? NO . PSYCHIATRIC: DO YOU HAVE THOUGHTS OF HURTING YOURSELF OR SOMEONE ELSE? NO . ARE YOU ABUSED, NEGLECTED, OR IN AN UNSAFE ENVIRONMENT? NO . ENDOCRINOLOGY: ARE YOU DIABETIC? NO . OTHER: DO YOU NEED ANY PRESCRIPTIONS? NO . IF YES, PLEASE LIST: ____ . ANY NEW PROBLEMS WITH YOUR MEDICATIONS? NO . WHEN DID YOU LAST EAT? 12-05-16 8PM . WHEN DID YOU LAST DRINK? 12-06-16 0600 . WHAT DID YOU LAST DRINK? WATER . NAME OF PERSON DRIVING YOU HOME? RHETT- . DO YOU HAVE ANY OTHER QUESTIONS OR CONCERNS NO . REVIEWED BY: PROVIDER: . VITAL SIGNS WT 348 LBS, HT 66.5 IN, BMI 55.32 INDEX, BP 150/87 MM HG, HR 62 /MIN, RR 16 /MIN, TEMP 97.2 F, OXYGEN SAT % 95%, NA INITIALS SC 08:51, REVIEWED BY: CM. ASSESSMENTS MYALGIA - M79.1 (PRIMARY) PROCEDURES PN TRIGGER POINT INJECTION WITH STEROIDS PRE PROCEDURE DIAGNOSIS 1. MYALGIA 2. PAIN AT BILATERAL SHOULDER AREA AND BILATERAL THORACIC AREA POST PROCEDURE DIAGNOSIS 1. MYALGIA 2. PAIN AT BILATERAL SHOULDER AREA AND BILATERAL THORACIC AREA PROCEDURE TRIGGER POINT INJECTION AT BILATERAL SHOULDER AREA AND BILATERAL THORACIC AREA SURGEON DR. SYEDA EVANS NURSE SITTER NONE ANESTHESIA LOCAL PRE PROCEDURE NOTE THE PATIENT HAS A HISTORY OF CHRONIC PAIN AT THE RIGHT AND LEFT SHOULDER AREA AND RIGHT AND LEFT THORACIC AREA. I EVALUATE THE PATIENT AND REVIEWED THE CHART. THERE IS EVIDENCE OF BANDS OF TISSUE WITH RESTRICTION OF MOVEMENT AND PRESENCE OF TRIGGER POINT AT THE AFFECTED AREA. I WENT OVER THE RISKS, ALTERNATIVES, AND BENEFITS ASSOCIATED WITH THIS PROCEDURE. THE PATIENT WOULD LIKE TO PROCEED AND GIVE CONSENT TO PERFORMED THE PROCEDURE. THE PATIENT DENIES UNEXPLAINABLE WEIGHT LOSS, FEVER, CHILLS, OR NEW CHANGES IN URINARY OR BOWEL CONTROL DESCRIPTION OF PROCEDURE THE PATIENT WAS BROUGHT TO THE PROCEDURE ROOM AND PLACED IN THE SITTING POSITION. THE AREA WAS CLEANED WITH ALCOHOL. THE PROCEDURE WAS DONE USING ASEPTIC STERILE TECHNIQUE. I CHECKED LATERALITY AND THE LEVEL WHERE THE PROCEDURE WAS GOING TO BE PERFORMED WITH THE PATIENT AND THE SUPPORTING STAFF AT THE MOMENT OF THE TIME OUT IN THE PROCEDURE ROOM. USING A 25-GAUGE NEEDLE, TRIGGER POINTS WERE INJECTED AT THE RIGHT AND LEFT SHOULDER AREA AND RIGHT AND LEFT THORACIC AREA WITH A TOTAL OF 40 ML OF BUPIVACAINE 0.25% AND KENALOG 40 MG. THERE WAS NO EVIDENCE OF BLOOD, PARESTHESIA OR CEREBROSPINAL FLUID DURING THE PROCEDURE. THE PATIENT WAS SENT TO THE RECOVERY ROOM. THE PATIENT WAS MOVING THE EXTREMITIES AND DOING WELL. THERE WAS NO COMPLICATION DURING THE PROCEDURE POST PROCEDURE NOTE THE PATIENT WILL BE SEEN IN A FOLLOW UP IN THE NEXT FEW WEEKS. INSTRUCTIONS WERE GIVEN, QUESTIONS WERE ANSWERED, AND THE PATIENT EXPRESSED UNDERSTANDING AND AGREES WITH THE PLAN. I, JANEEN PLATT, DOCUMENTED THE ABOVE INFORMATION ACTING A SCRIBE FOR DR. EVANS. I HAVE REVIEWED THE ABOVE DOCUMENT, WRITTEN BY JANEEN PLATT SCRIBVioleta AND I VERIFY THAT IT IS ACCURATE PROCEDURE CODES 06152 INJECT TRIGGER POINTS 3/> DISPOSITION & COMMUNICATION FOLLOW UP 3 WEEKS ELECTRONICALLY SIGNED BY SYEDA EVANS MD ON 12/12/2016 AT 07:24 PM EDT DISCLAIMER : THIS IS A VISIT SUMMARY EXTRACTED FROM THE [employer] CHART. IT IS NOT A COPY OF THE [employer] PROGRESS NOTE. DEIDRE
== END ==
LOC: M PAIN 08:30
PROVIDERS: ATTEND Anesthesiology
DX: G89.29 Other chronic pain (principal); M79.1 Myalgia; M25.511 Pain in right shoulder; M25.512 Pain in left shoulder; M54.6 Pain in thoracic spine; D51.9 Vitamin B12 deficiency anemia, unspecified; J45.909 Unspecified asthma, uncomplicated; E66.9 Obesity, unspecified; Z68.43 Body mass index [BMI] 50.0-59.9, adult; G47.33 Obstructive sleep apnea (adult) (pediatric); Z88.2 Allergy status to sulfonamides; Z79.899 Other long term (current) drug therapy
CPT/HCPCS: 20553; J3301

== ENCOUNTER → 2016-12-06 | Outpatient (REF) | payer BC ==
[~2016-12-06] MED LIST changes: -BUPIVACAINE HCL 0.25% 10 ML VIAL As Ordered ONE; -BUPIVACAINE HCL 0.25% 30 ML VIAL As Ordered ONE; -TRIAMCINOLONE ACETONIDE SUSP 40 MG/ML VIAL (J3301) As Ordered ONE; -diazePAM 5 MG TAB As Ordered ONE; -oxyCODONE 5MG TAB As Ordered ONE
== END ==
LOC: M LAB REF 09:21
PROVIDERS: ATTEND Internal Medicine Medical Oncology
DX: D64.9 Anemia, unspecified (principal)

== ENCOUNTER 2016-12-07 08:19 | Outpatient (RCR) | payer BC ==
[~2016-12-07 08:19] MED LIST changes: +BACL10TA5 PO; -BACL5TA PO; -LYRI100C10 PO; -METO50TA2 PO; +METO50TA7 PO; +PREG100CA PO
== END 2016-12-31 ==
LOC: M OT 08:19
PROVIDERS: ATTEND Orthopaedic Surgery
DX: Z51.89 Encounter for other specified aftercare (principal); Z96.691 Finger-joint replacement of right hand; M18.11 Unilateral primary osteoarthritis of first carpometacarpal joint, right hand

== ENCOUNTER → 2016-12-13 | Outpatient (REF) | payer BC ==
[~2016-12-13] MED LIST changes: -BACL10TA5 PO; +BACL5TA PO; +LYRI100C10 PO; +METO50TA2 PO; -METO50TA7 PO; -PREG100CA PO
[2016-12-13 20:10] LABS: IMMUNOGLOBULIN G 1990 MG/DL (681-1648); IMMUNOGLOBULIN M 66.4 MG/DL (40-230); TOTAL PROTEIN 8.6 GM/DL (6.4-8.2)
[2016-12-15 11:36] LABS: ALBUMIN % 52.4 % (55.8-66.1); GAMMA GLOBULIN % 22.5 % (11.1-18.8)
[2016-12-15 11:37] LABS: ALBUMIN 4.51 GM/DL (3.29-5.55)
[2016-12-16 00:08] LABS: FREE KAPPA LIGHT CHAINS SERUM 24.3 mg/L (3.3-19.4); FREE LAMBDA LIGHT CHAINS SERUM 8.9 mg/L (5.7-26.3); KAPPA/LAMBDA RATIO SERUM 2.73 (0.26-1.65)
== END ==
LOC: M LAB REF 13:46
PROVIDERS: ATTEND Internal Medicine Medical Oncology
DX: D47.2 Monoclonal gammopathy (principal)

== ENCOUNTER → 2016-12-20 | Outpatient (CLI) | payer BC ==
[~2016-12-20] MED LIST changes: +BACL10TA5 PO; -BACL5TA PO; -LYRI100C10 PO; -METO50TA2 PO; +METO50TA7 PO; +PREG100CA PO
--- NOTE | 2016-12-31 01:59 | ECWPNPC ---
PATIENT NAME: ASHA FLOWER : 1955 GENDER: FEMALE VISIT DATE: 12/20/2016 DISCHARGE DATE: 12/20/161515 VISIT LOCKED DATE TIME: PHYSICIAN: MASHA AREVALO RESOURCE: MASHA AREVALO REASON FOR APPOINTMENT 1. POST TPI HISTORY OF PRESENT ILLNESS HISTORY OF PRESENT ILLNESS: HERE FOR POST PROCEDURE F/I.HAD TPI UPPER BACK 0N 6-5-17.REPORTING >50% IMPROVEMENT IN PAIN THAT CONTINUES TODAY.RATING PAIN VAS 5/10.DESCRIBES PAIN INTERMITTENT ACHING.TRIALED ON LYRICA 25MG BUT COULDNT TOLERATE DUE TO SIDE EFFECTS.CURRENTLY USING HYDROCODONE 5/325 ONE -TWO TABLETS PRN FOR SEVERE PAIN WITH GOOD EFFECT. PAIN THE PATIENT DESCRIBES THE PAIN... FALL RISK SCREENING: SCREENING :NO FALLS IN THE PAST YEAR CURRENT MEDICATIONS TAKING METOPROLOL SUCCINATE 25 MG TABLET EXTENDED RELEASE 24 HOUR 1 TABLET ORALLY TWICE A DAY TAKING LOSARTAN POTASSIUM 50 MG TABLET 1 TABLET ORALLY ONCE A DAY TAKING LEVOTHYROXINE SODIUM 50 MCG TABLET 1 TABLET ORALLY EVERY OTHER DAY TAKING VITAMIN B12 1000 UNITS TABLET 1 TABLET ORALLY ONCE A DAY TAKING VITAMIN D 5000 UNITS TABLET ORALLY DAILY TAKING LEVOTHROID 75 MCG TABLET 1 TABLET ORALLY EVERY OTHER DAY TAKING PROZAC 40 MG CAPSULE 1 CAPSULE IN THE MORNING ORALLY TAKING ALBUTEROL SULFATE (2.5 MG/3ML) 0.083% NEBULIZATION SOLUTION 3 ML INHALATION EVERY 6 HOURS NEEDED FOR SHORTNESS OF BREATH TAKING FLONASE NEEDED TAKING CLARITIN 10 MG TABLET 1 TABLET ORALLY NEEDED TAKING HYDROCODONE-ACETAMINOPHEN 5-325 MG TABLET 1 TABLET NEEDED FOR PAIN MDD2 ORALLY EVERY 8 HRS MDD2 NOT-TAKING LYRICA 25 MG CAPSULE 1 ORALLY TID MDD3 NOT-TAKING MUCINEX DM MAXIMUM STRENGTH 60-1200 MG TABLET EXTENDED RELEASE 12 HOUR 1 TABLET NEEDED ORALLY TWICE A DAY NOT-TAKING FLONASE 50 MCG/DOSE INHALER 2 SPRAYS IN EACH NOSTRIL NASALLY ONCE A DAY MEDICATION LIST REVIEWED AND RECONCILED WITH THE PATIENT PAST MEDICAL HISTORY VITAMIN B12 DEFICIENCY IRRITABLE BOWEL SYNDROME DIVERTICULOSIS ASTHMA ABNORMAL PAP SMEAR/CRYO PANCREATITIS/2004 OBESITY HX. OF PROTEIN AND BLOOD IN URINE-SEE DR. MIAN DYE WITH CPAP FIBROMYALGIA THYROID ISSUES NERVE CONDUCTION TEST WITH NEUROLOGY WAS NEGATIVE ALLERGIES SULFAMETHOXAZOLE: GETS YEASTS INFECTIONS EASILY ON THIS: SIDE EFFECTS SURGICAL HISTORY HYSTERECTOMY WITH CERVICAL PRESERVATION 1996 KNEE REPLACEMENT/LEFT 10/09 T & A CHOLECYSTECTOMY 2003 COLONOSCOPY/POLYP REMOVED/BENIGN 04/13 PARTIAL BOWEL REMOVED FOR CHRONIC DIVERTICULITIS RIGHT WRIST 10/2016 HOSPITALIZATION/MAJOR DIAGNOSTIC PROCEDURE PANCREATITIS SUB DURAL HEMATOMA SURGERY RELATED REVIEW OF SYSTEMS REVIEWED BY: PROVIDER: MASHA AGUIRRE . CONSTITUTIONAL: ANY CHANGE IN YOUR MEDICAL CONDITION? NO . CHILLS NO . FEVER NO . INFECTION: DO YOU HAVE NEW INFECTIONS? NO . DO YOU HAVE HISTORY OF MRSA? NO . MUSCULOSKELETAL: ANY NEW PATTERNS OF PAIN OR NUMBNESS? NO . GASTROENTEROLOGY: ANY NEW CHANGE IN BOWEL CONTROL? NO . GENITOURINARY: ANY NEW CHANGE IN BLADDER CONTROL? NO . IS THERE A CHANCE YOU COULD BE ? NO . HEMATOLOGY/LYMPH: DO YOU TAKE ANY BLOOD THINNERS? (FOR EXAMPLE- COUMADIN, PLAVIX, AGGRENOX, PLATEL, PRADAXA, OR XARELTO) NO . WHEN WAS YOUR LAST DOSE? DATE: TIME: . NEUROLOGY: HAVE YOU FALLEN IN THE PAST 6 MONTHS? NO . ANY NEW EXTREMITY NUMBNESS OR WEAKNESS? NO . CARDIOLOGY: DO YOU HAVE A PACEMAKER OR DEFIBRILLATOR? NO . RESPIRATORY: HAVE YOU BEEN SICK IN THE PAST WEEK? NO . FEVER NO . FLU LIKE SYMPTOMS? NO . COUGH NO . INTEGUMENTARY: DO YOU HAVE ANY RASHES OR OPEN SORES? NO . ALLERGIC/IMMUNO: ARE YOU ALLERGIC TO SHELLFISH OR IV DYE? NO . ANY NEW ALLERGIES? NO . PSYCHIATRIC: DO YOU HAVE THOUGHTS OF HURTING YOURSELF OR SOMEONE ELSE? NO . ARE YOU ABUSED, NEGLECTED, OR IN AN UNSAFE ENVIRONMENT? NO . ENDOCRINOLOGY: ARE YOU DIABETIC? NO . OTHER: DO YOU NEED ANY PRESCRIPTIONS? NO, PT STATES SHE TOOK HERSELF OFF LYRICA FOR HEADACHES, BLOATING, FORGETFULNESS, IRRITABLE, LEG CRAMPS. . IF YES, PLEASE LIST: ____ . ANY NEW PROBLEMS WITH YOUR MEDICATIONS? NO . WHEN DID YOU LAST EAT? ____ . WHEN DID YOU LAST DRINK? ____ . WHAT DID YOU LAST DRINK? ____ . NAME OF PERSON DRIVING YOU HOME? ____ . DO YOU HAVE ANY OTHER QUESTIONS OR CONCERNS NO . VITAL SIGNS WT 336.0 LBS, HT 66.5 IN, BMI 53.41 INDEX, BP 145/82 MM HG, HR 65 /MIN, RR 16 /MIN, TEMP 96.9 F, OXYGEN SAT % 96%, SAFE IN ENV? (Y/N) Y, NA INITIALS TL 1443, REVIEWED BY: EM. EXAMINATION CERVICAL SPINE/NECK: RANGE OF MOTION OF NECK:LIMITED IN ALL DIRECTIONS. MOTOR STRENGTH:DIMINISHED BILAT. UPPER EXTREMITIES. MYOFASCIAL TRIGGER POINTS:BILATERAL TRAPEZIUS R>L. GENERAL EXAMINATION: LUNGS:LUNG SOUNDS ARE CLEAR. HEART:HEART RATE REGULAR. MUSCULOSKELETAL:*, MUSCLE STRENGTH TESTING 5/5 BLE.MULTIPLE AREAS OF TENDER SPOTS BILAT. INDICATIVE OF FIBROMYALGIA. DIAGNOSTIC: . ASSESSMENTS MYALGIA - M79.1 (PRIMARY) CHRONIC PRESCRIPTION OPIATE USE - Z79.891 TREATMENT MYALGIA CONTINUE HYDROCODONE-ACETAMINOPHEN TABLET, 5-325 MG, 1 TABLET NEEDED FOR PAIN MDD2, ORALLY, EVERY 8 HRS MDD2 PROCEDURE CODES FA211 ESTABILISHED PATIENT [facility] FACILITY CHARGE DISPOSITION & COMMUNICATION FOLLOW UP 2 MONTHS ELECTRONICALLY SIGNED BY TIMOTHY LABERT ON 12/30/2016 AT 02:10 PM EDT DISCLAIMER : THIS IS A VISIT SUMMARY EXTRACTED FROM THE [email or web address] CHART. IT IS NOT A COPY OF THE [email or web address] PROGRESS NOTE. MTDD
== END ==
LOC: M PAIN 14:40
PROVIDERS: ATTEND Nurse Practitioner Family
DX: M79.1 Myalgia (principal); Z79.891 Long term (current) use of opiate analgesic; Z79.899 Other long term (current) drug therapy; Z88.2 Allergy status to sulfonamides

== ENCOUNTER → 2016-12-23 | Outpatient (CLI) | payer BC ==
[~2016-12-23] MED LIST changes: -BACL10TA5 PO; +BACL5TA PO; +LYRI100C10 PO; +METO50TA2 PO; -METO50TA7 PO; -PREG100CA PO
[2016-12-23 08:24] LABS: FREE T4 1.22 NG/DL (0.76-1.46)
== END ==
LOC: M LAB 07:31
PROVIDERS: ATTEND Internal Medicine
DX: E03.9 Hypothyroidism, unspecified (principal)

== ENCOUNTER → 2016-12-27 | Outpatient (REF) | payer BC | LOC: M LAB REF 09:53 | PROVIDERS: ATTEND Internal Medicine Medical Oncology | DX: D47.2 Monoclonal gammopathy (principal) ==

== ENCOUNTER → 2017-02-01 | Outpatient (REF) | payer BC ==
[~2017-02-01] MED LIST changes: +BACL10TA5 PO; -BACL5TA PO; -LYRI100C10 PO; -METO50TA2 PO; +METO50TA7 PO; +PREG100CA PO
[2017-02-04 10:13] LABS: O+P EXAM Final report (.)
== END ==
LOC: M LAB REF 15:41
PROVIDERS: ATTEND Physician Assistant Surgical
DX: R19.7 Diarrhea, unspecified (principal)

== ENCOUNTER → 2017-03-08 | Outpatient (CLI) | payer BC ==
--- NOTE | 2017-03-10 01:38 | ECWPNPC ---
PATIENT NAME: ASHA FLOWER : 1955 GENDER: FEMALE VISIT DATE: 03/08/2017 DISCHARGE DATE: 03/08/17 1017 VISIT LOCKED DATE TIME: PHYSICIAN: MASHA AREVALO RESOURCE: MASHA AREVALO REASON FOR APPOINTMENT 1. BACK/KNEE HISTORY OF PRESENT ILLNESS HISTORY OF PRESENT ILLNESS: HERE ON URGENT BASIS FOR SEVERE FLARE UP OF LOW BACK PAIN AND RIGHT LEG RADICULAR SYMPTOMS.REPORTING FALLING ON RIGHT SIDE AFTER RUNNING AND PLAYING WATER BALLOONS 2WK AGO.DESCRIBSES PAIN INTERMITTENT ACHING AND BURNING ACROSS LOW BACK R>L.PAIN IS AGGREVATD WITH SITTING OR STANDING.RELIEVED SOMEWHAT WITH USE OF HYDROCODONE 5/325 AND REST.REVIEWED MRI L/S SPINE DONE 10-04-15.DENIES BOWEL OR BLADDER INCONTINENECE.RATING PAIN VAS 7/10. PAIN THE PATIENT DESCRIBES THE PAIN... FALL RISK SCREENING: SCREENING :NO FALLS IN THE PAST YEAR CURRENT MEDICATIONS TAKING METOPROLOL SUCCINATE 25 MG TABLET EXTENDED RELEASE 24 HOUR 1 TABLET ORALLY TWICE A DAY TAKING LOSARTAN POTASSIUM 50 MG TABLET 1 TABLET ORALLY ONCE A DAY TAKING LEVOTHYROXINE SODIUM 50 MCG TABLET 1 TABLET ORALLY EVERY OTHER DAY TAKING VITAMIN B12 1000 UNITS TABLET 1 TABLET ORALLY ONCE A DAY TAKING VITAMIN D 5000 UNITS TABLET ORALLY DAILY TAKING LEVOTHROID 75 MCG TABLET 1 TABLET ORALLY EVERY OTHER DAY TAKING PROZAC 40 MG CAPSULE 1 CAPSULE IN THE MORNING ORALLY TAKING ALBUTEROL SULFATE (2.5 MG/3ML) 0.083% NEBULIZATION SOLUTION 3 ML INHALATION EVERY 6 HOURS NEEDED FOR SHORTNESS OF BREATH TAKING FLONASE NEEDED TAKING CLARITIN 10 MG TABLET 1 TABLET ORALLY NEEDED TAKING HYDROCODONE-ACETAMINOPHEN 5-325 MG TABLET 1 TABLET NEEDED FOR PAIN MDD2 ORALLY EVERY 8 HRS MDD2 NOT-TAKING LYRICA 25 MG CAPSULE 1 ORALLY TID MDD3 NOT-TAKING MUCINEX DM MAXIMUM STRENGTH 60-1200 MG TABLET EXTENDED RELEASE 12 HOUR 1 TABLET NEEDED ORALLY TWICE A DAY NOT-TAKING FLONASE 50 MCG/DOSE INHALER 2 SPRAYS IN EACH NOSTRIL NASALLY ONCE A DAY MEDICATION LIST REVIEWED AND RECONCILED WITH THE PATIENT PAST MEDICAL HISTORY VITAMIN B12 DEFICIENCY IRRITABLE BOWEL SYNDROME DIVERTICULOSIS ASTHMA ABNORMAL PAP SMEAR/CRYO PANCREATITIS/2004 OBESITY HX. OF PROTEIN AND BLOOD IN URINE-SEE DR. PAPPAS MARNIE WITH CPAP FIBROMYALGIA THYROID ISSUES NERVE CONDUCTION TEST WITH NEUROLOGY WAS NEGATIVE ALLERGIES SULFAMETHOXAZOLE: GETS YEASTS INFECTIONS EASILY ON THIS: SIDE EFFECTS SOCIAL HISTORY GENERAL: TOBACCO USE ARE YOU A:NONSMOKER VAPORNO E-CIGARETTENO HIV / HEP-C SCREENING HIV TEST OFFERED TO PATIENT:YES DATE OFFERED:10/29/2016 TEST ACCEPTED:NO REASON:PATIENT DECLINED HEP-C TEST OFFERED TO PATIENT:YES DATE OFFERED:10/29/2016 TEST ACCEPTED:NO REASON:PATIENT DECLINED LEARNING BARRIERS / SPECIAL NEEDS CHANGE FROM LAST VISIT?NO BARRIERS TO LEARNING?NO HEARING IMPAIRED?NO VISION IMPAIRED?NO COGNITIVELY IMPAIRED?NO READINESS TO LEARN?YES LEARNING PREFERENCES?NO LEARNING CAPABILITIES PRESENT?YES EMOTIONAL BARRIERS?NO SPECIAL DEVICES?NO STUDENT LIFE COORDINATOR NEEDED?NO PAIN CLINIC PFS, CLERGY, PUBLIC HEALTH REFERRALS PFS REFERRAL NEEDED?NO CLERGY REFERRAL NEEDED?NO PUBLIC HEALTH REFERRAL NEEDED?NO WAS THE PROVIDER NOTIFIED OF ANY PERTINENT INFO?NO HAS THE PATIENT BEEN EDUCATED REGARDING HIS/HER PLAN OF CARE?YES HAS THE PATIENT BEEN EDUCATED REGARDING PAIN, THE RISK FOR PAIN, THE IMPORTANCE OF EFFECTIVE PAIN MANAGEMENT, AND THE PAIN ASSESSMENT PROCESS?YES PATIENT: ____. REVIEW OF SYSTEMS REVIEWED BY: PROVIDER: MASHA AGUIRRE . CONSTITUTIONAL: ANY CHANGE IN YOUR MEDICAL CONDITION? NO . CHILLS NO . FEVER NO . INFECTION: DO YOU HAVE NEW INFECTIONS? NO . DO YOU HAVE HISTORY OF MRSA? NO . MUSCULOSKELETAL: ANY NEW PATTERNS OF PAIN OR NUMBNESS? YES, PAIN IN RIGHT LOW BACK AND DOWN RIGHT LEG AND PAIN IN RIGHT SHOULDER DOWN RIGHT ARM . GASTROENTEROLOGY: ANY NEW CHANGE IN BOWEL CONTROL? YES, IBS IS &QUOT;ACTING UP&QUOT; . GENITOURINARY: ANY NEW CHANGE IN BLADDER CONTROL? NO . IS THERE A CHANCE YOU COULD BE ? NO . HEMATOLOGY/LYMPH: DO YOU TAKE ANY BLOOD THINNERS? (FOR EXAMPLE- COUMADIN, PLAVIX, AGGRENOX, PLATEL, PRADAXA, OR XARELTO) NO . WHEN WAS YOUR LAST DOSE? DATE: TIME: . NEUROLOGY: HAVE YOU FALLEN IN THE PAST 6 MONTHS? YES . ANY NEW EXTREMITY NUMBNESS OR WEAKNESS? NO . CARDIOLOGY: DO YOU HAVE A PACEMAKER OR DEFIBRILLATOR? NO . RESPIRATORY: HAVE YOU BEEN SICK IN THE PAST WEEK? NO . FEVER NO . FLU LIKE SYMPTOMS? NO . COUGH NO . INTEGUMENTARY: DO YOU HAVE ANY RASHES OR OPEN SORES? NO . ALLERGIC/IMMUNO: ARE YOU ALLERGIC TO SHELLFISH OR IV DYE? NO . ANY NEW ALLERGIES? NO . PSYCHIATRIC: DO YOU HAVE THOUGHTS OF HURTING YOURSELF OR SOMEONE ELSE? NO . ARE YOU ABUSED, NEGLECTED, OR IN AN UNSAFE ENVIRONMENT? NO . ENDOCRINOLOGY: ARE YOU DIABETIC? NO . OTHER: DO YOU NEED ANY PRESCRIPTIONS? NO . IF YES, PLEASE LIST: ____ . ANY NEW PROBLEMS WITH YOUR MEDICATIONS? NO . WHEN DID YOU LAST EAT? ____ . WHEN DID YOU LAST DRINK? ____ . WHAT DID YOU LAST DRINK? ____ . NAME OF PERSON DRIVING YOU HOME? ____ . DO YOU HAVE ANY OTHER QUESTIONS OR CONCERNS NO . VITAL SIGNS WT 317.6 LBS, HT 66.5 IN, BMI 50.49 INDEX, BP 150/86 MM HG, HR 55 /MIN, RR 16 /MIN, TEMP 96.6 F, OXYGEN SAT % 96%, REVIEWED BY: WILMAR. EXAMINATION GENERAL EXAMINATION: LUNGS:LUNG SOUNDS ARE CLEAR. HEART:HEART RATE REGULAR. MUSCULOSKELETAL:*, MUSCLE STRENGTH TESTING 5/5 BLE.MULTIPLE AREAS OF TENDER SPOTS BILAT. INDICATIVE OF FIBROMYALGIA. DIAGNOSTIC:MRI L/S SPINE 10-04-15-REVIEWED. CERVICAL SPINE/NECK: RANGE OF MOTION OF NECK:LIMITED IN ALL DIRECTIONS. MOTOR STRENGTH:DIMINISHED BILAT. UPPER EXTREMITIES. MYOFASCIAL TRIGGER POINTS:BILATERAL TRAPEZIUS R>L. LUMBAR SPINE/LOWER BACK: PALPATION:SPECIFIC TENDERNESS OVER LUMBAR FACETS BILAT.L4/5-L5/S1 WITH FACET LOADING., SI JOINT TENDERNESS RIGHT.. MOTOR SYSTEM:5/5 BLE. SENSORY EXAM:NORMAL. REFLEXES:2/4 AND SYMMETRIC BLE. 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 L4/5-L5/S1 THERAPEUTIC FACET BLOCK. PREVENTIVE MEDICINE PAIN CLINIC TEACHING: PROCEDURE TEACHING PRE-PROCEDURE TEACHING DONE. PATIENT VERBALIZES UNDERSTANDING.. PROCEDURE CODES FA211 ESTABILISHED PATIENT [facility] FACILITY CHARGE DISPOSITION & COMMUNICATION FOLLOW UP 2WK POST (REASON: BILAT. L4/5-L5/S1 THERAPEUTIC FACET BLOCK) ELECTRONICALLY SIGNED BY TIMOTHY ALBERT ON 03/08/2017 AT 03:50 PM EDT DISCLAIMER : THIS IS A VISIT SUMMARY EXTRACTED FROM THE [employer] CHART. IT IS NOT A COPY OF THE [employer] PROGRESS NOTE. MTDD
== END ==
LOC: M PAIN 09:20
PROVIDERS: ATTEND Nurse Practitioner Family
DX: G89.29 Other chronic pain (principal); M47.816 Spondylosis without myelopathy or radiculopathy, lumbar region; M79.1 Myalgia; D51.9 Vitamin B12 deficiency anemia, unspecified; J45.909 Unspecified asthma, uncomplicated; G47.33 Obstructive sleep apnea (adult) (pediatric); K58.9 Irritable bowel syndrome, unspecified; E66.9 Obesity, unspecified; Z68.43 Body mass index [BMI] 50.0-59.9, adult; Z88.8 Allergy status to other drugs, medicaments and biological substances; Z79.899 Other long term (current) drug therapy

== ENCOUNTER → 2017-03-22 | Outpatient (CLI) | payer BC ==
[~2017-03-22] MED LIST changes: +BUPIVACAINE HCL 0.25% 30 ML VIAL As Ordered ONE; +ISOVUE-M 300 61% 15ML VIAL (Q9967) As Ordered ONE; +LIDOCAINE 1% SDV INJ 30 ML VIAL As Ordered ONE; +TRIAMCINOLONE ACETONIDE SUSP 40 MG/ML VIAL (J3301) As Ordered ONE; +diazePAM 5 MG TAB As Ordered ONE; +oxyCODONE 5MG TAB As Ordered ONE
--- NOTE | 2017-03-22 12:50 | REP ---
Partial lumbar spine series: Four views. . History: Injection procedure for pain. 435 seconds of fluoroscopy time is reported. Findings: A sequence of four fluoroscopically obtained last image hold procedural spot radiographs of the lumbar spine document needle position and contrast injection associated with injection procedure. Signed by Ryley Foley MD 03/22/2017 12:42 P
--- NOTE | 2017-03-23 00:17 | ECWPNPC ---
PATIENT NAME: ASHA FLOWER : 1955 GENDER: FEMALE VISIT DATE: 03/22/2017 DISCHARGE DATE: 03/22/17 1155 VISIT LOCKED DATE TIME: PHYSICIAN: SYEDA EVANS RESOURCE: SYEDA EVANS REASON FOR APPOINTMENT 1. BILAT. L4/5-L5/S1 THERAPEUTIC FACET BLOCK HISTORY OF PRESENT ILLNESS FALL RISK SCREENING: SCREENING :NO FALLS IN THE PAST YEAR PAIN SCREENING: PATIENT HAS A COMPLAINT OF ACUTE OR CHRONIC PAIN :YES CURRENT MEDICATIONS TAKING METOPROLOL SUCCINATE 25 MG TABLET EXTENDED RELEASE 24 HOUR 1 TABLET ORALLY TWICE A DAY, NOTES: 03/22 8AM TAKING LOSARTAN POTASSIUM 50 MG TABLET 1 TABLET ORALLY ONCE A DAY, NOTES: 03/22 8AM TAKING LEVOTHYROXINE SODIUM 50 MCG TABLET 1 TABLET ORALLY EVERY OTHER DAY, NOTES: 03/22 8AM TAKING VITAMIN B12 1000 UNITS TABLET 1 TABLET ORALLY ONCE A DAY, NOTES: 03/22 8AM TAKING VITAMIN D 5000 UNITS TABLET ORALLY DAILY, NOTES: 03/22 8AM TAKING LEVOTHROID 75 MCG TABLET 1 TABLET ORALLY EVERY OTHER DAY, NOTES: 03/22 8AM TAKING ALBUTEROL SULFATE (2.5 MG/3ML) 0.083% NEBULIZATION SOLUTION 3 ML INHALATION EVERY 6 HOURS NEEDED FOR SHORTNESS OF BREATH, NOTES: 03/22 8AM TAKING HYDROCODONE-ACETAMINOPHEN 5-325 MG TABLET 1 TABLET NEEDED FOR PAIN MDD2 ORALLY EVERY 8 HRS MDD2, NOTES: 03/21 9PM TAKING SERTRALINE HCL 50 MG TABLET 1 TABLET ORALLY ONCE A DAY, NOTES: 03/21 9AM TAKING RANITIDINE HCL 150 MG TABLET 1 TABLET AT BEDTIME ORALLY BID, NOTES: 03/22 8AM NOT-TAKING PROZAC 40 MG CAPSULE 1 CAPSULE IN THE MORNING ORALLY NOT-TAKING FLONASE NEEDED NOT-TAKING CLARITIN 10 MG TABLET 1 TABLET ORALLY NEEDED NOT-TAKING LYRICA 25 MG CAPSULE 1 ORALLY TID MDD3 NOT-TAKING MUCINEX DM MAXIMUM STRENGTH 60-1200 MG TABLET EXTENDED RELEASE 12 HOUR 1 TABLET NEEDED ORALLY TWICE A DAY NOT-TAKING FLONASE 50 MCG/DOSE INHALER 2 SPRAYS IN EACH NOSTRIL NASALLY ONCE A DAY MEDICATION LIST REVIEWED AND RECONCILED WITH THE PATIENT PAST MEDICAL HISTORY VITAMIN B12 DEFICIENCY IRRITABLE BOWEL SYNDROME DIVERTICULOSIS ASTHMA ABNORMAL PAP SMEAR/CRYO PANCREATITIS/2004 OBESITY HX. OF PROTEIN AND BLOOD IN URINE-SEE DR. PAPPAS MARNIE WITH CPAP FIBROMYALGIA THYROID ISSUES NERVE CONDUCTION TEST WITH NEUROLOGY WAS NEGATIVE ALLERGIES SULFAMETHOXAZOLE: GETS YEASTS INFECTIONS EASILY ON THIS: SIDE EFFECTS SOCIAL HISTORY GENERAL: TOBACCO USE ARE YOU A:NONSMOKER VAPORNO E-CIGARETTENO HIV / HEP-C SCREENING HIV TEST OFFERED TO PATIENT:YES DATE OFFERED:10/29/2016 TEST ACCEPTED:NO REASON:PATIENT DECLINED HEP-C TEST OFFERED TO PATIENT:YES DATE OFFERED:10/29/2016 TEST ACCEPTED:NO REASON:PATIENT DECLINED LEARNING BARRIERS / SPECIAL NEEDS CHANGE FROM LAST VISIT?NO BARRIERS TO LEARNING?NO HEARING IMPAIRED?NO VISION IMPAIRED?NO COGNITIVELY IMPAIRED?NO READINESS TO LEARN?YES LEARNING PREFERENCES?NO LEARNING CAPABILITIES PRESENT?YES EMOTIONAL BARRIERS?NO SPECIAL DEVICES?NO TEASEL SETTER NEEDED?NO PAIN CLINIC PFS, CLERGY, PUBLIC HEALTH REFERRALS PFS REFERRAL NEEDED?NO CLERGY REFERRAL NEEDED?NO PUBLIC HEALTH REFERRAL NEEDED?NO WAS THE PROVIDER NOTIFIED OF ANY PERTINENT INFO?NO HAS THE PATIENT BEEN EDUCATED REGARDING HIS/HER PLAN OF CARE?YES PLEASE DOCUMENT ANY ADDTIONAL DETAILS. CHANA LUMBAR FACET THERAPEUTIC INJ HAS THE PATIENT BEEN EDUCATED REGARDING PAIN, THE RISK FOR PAIN, THE IMPORTANCE OF EFFECTIVE PAIN MANAGEMENT, AND THE PAIN ASSESSMENT PROCESS?YES REVIEWED BY: LIVIER. PATIENT: ____. REVIEW OF SYSTEMS REVIEWED BY: PROVIDER: . CONSTITUTIONAL: ANY CHANGE IN YOUR MEDICAL CONDITION? NO . CHILLS NO . FEVER NO . INFECTION: DO YOU HAVE NEW INFECTIONS? NO . DO YOU HAVE HISTORY OF MRSA? NO . MUSCULOSKELETAL: ANY NEW PATTERNS OF PAIN OR NUMBNESS? NO . SYTEMIC LUPUS NO . GASTROENTEROLOGY: ANY NEW CHANGE IN BOWEL CONTROL? NO . BARRETTS ESOPHAGUS NO . CIRRHOSIS NO . HEPATITIS NO . LIVER FAILURE NO . ACID REFLUX NO . UNEXPLAINED WEIGHT LOSS NO . GENITOURINARY: ANY NEW CHANGE IN BLADDER CONTROL? NO . IS THERE A CHANCE YOU COULD BE ? NO . HEMATOLOGY/LYMPH: DO YOU TAKE ANY BLOOD THINNERS? (FOR EXAMPLE- COUMADIN, PLAVIX, AGGRENOX, PLATEL, PRADAXA, OR XARELTO) NO . WHEN WAS YOUR LAST DOSE? DATE: TIME: . LOW PLATELET COUNT NO . SICKLE CELL DISEASE NO . VON WILLIEBRANDS NO . FACTOR V LEIDEN NO . THALLASEMIA NO . ANEMIA NO . EASY BRUISING NO . NEUROLOGY: HAVE YOU FALLEN IN THE PAST 6 MONTHS? YES, PT STATES THAT SHE FELL AT HOME, PLAYING WATER BALLOONS WITH GRANDCHILDREN, FELL, NO INJURY, SORENESS, NO REPORT TO ED . ANY NEW EXTREMITY NUMBNESS OR WEAKNESS? NO . HEAD INJURY NO . DEMENTIA NO . CEREBRAL PALSY NO . MULTIPLE SCLEROSIS NO . DIZZINESS NO . HEADACHE NO . STROKES NO . VERTIGO NO . CARDIOLOGY: DO YOU HAVE A PACEMAKER OR DEFIBRILLATOR? NO . ANGINA NO . HEART ATTACK NO . HEART SURGERY NO . CONGESTIVE HEART FAILURE/FLUID OVERLOAD NO . CHEST PAIN NO . HIGH BLOOD PRESSURE NO . IRREGULAR HEART BEAT NO . RESPIRATORY: HAVE YOU BEEN SICK IN THE PAST WEEK? NO . FEVER NO . FLU LIKE SYMPTOMS? NO . CPAP NO . BYPAP NO . ASTHMA NO . EMPHYSEMA NO . CHRONIC LUNG DISEASES NO . SHORTNESS OF BREATH ON EXERTION NO . COUGH NO . SNORING NO . INTEGUMENTARY: DO YOU HAVE ANY RASHES OR OPEN SORES? NO . ALLERGIC/IMMUNO: ARE YOU ALLERGIC TO SHELLFISH OR IV DYE? NO . ANY NEW ALLERGIES? NO . PSYCHIATRIC: DO YOU HAVE THOUGHTS OF HURTING YOURSELF OR SOMEONE ELSE? NO . ARE YOU ABUSED, NEGLECTED, OR IN AN UNSAFE ENVIRONMENT? NO . ENDOCRINOLOGY: ARE YOU DIABETIC? NO . THYROID DISORDER NO . OTHER: DO YOU NEED ANY PRESCRIPTIONS? NO . IF YES, PLEASE LIST: ____ . ANY NEW PROBLEMS WITH YOUR MEDICATIONS? NO . WHEN DID YOU LAST EAT? 03/21 9PM . WHEN DID YOU LAST DRINK? 03/22 8AM . WHAT DID YOU LAST DRINK? WATER . NAME OF PERSON DRIVING YOU HOME? RHETT . DO YOU HAVE ANY OTHER QUESTIONS OR CONCERNS NO . VITAL SIGNS WT 313 LBS, HT 66.5 IN, BMI 49.76 INDEX, BP 130/70 MM HG, HR 56 /MIN, RR 16 /MIN, TEMP 97.2 F, OXYGEN SAT % 955, SAFE IN ENV? (Y/N) Y, NA INITIALS DE 10:04, REVIEWED BY: LIVIER. ASSESSMENTS SPONDYLOSIS OF LUMBAR REGION WITHOUT MYELOPATHY OR RADICULOPATHY - M47.816 (PRIMARY) SPONDYLOSIS OF LUMBOSACRAL REGION WITHOUT MYELOPATHY OR RADICULOPATHY - M47.817 PROCEDURES PN LUMBAR FACET BLOCK THERAPEUTIC PRE PROCEDURE DIAGNOSIS LUMBAR SPONDYLOSIS, LUMBOSACRAL SPONDYLOSIS POST PROCEDURE DIAGNOSIS LUMBAR SPONDYLOSIS, LUMBOSACRAL SPONDYLOSIS PROCEDURE BILATERAL L4-L5 AND BILATERAL L5-S1 LUMBAR FACET THERAPEUTIC BLOCK SURGEON DR. SYEDA EVANS [employer] TEACHER NONE ANESTHESIA LOCAL PRE PROCEDURE NOTE THE PATIENT HAS A HISTORY OF CHRONIC LOW BACK PAIN. I EVALUATE THE PATIENT AND REVIEWED THE CHART. I WENT OVER THE RISKS, ALTERNATIVES, AND BENEFITS ASSOCIATED WITH THIS PROCEDURE. THE PATIENT WOULD LIKE TO PROCEED AND GIVE CONSENT TO PERFORMED THE PROCEDURE. THE PATIENT DENIES UNEXPLAINABLE WEIGHT LOSS, FEVER, CHILLS, OR NEW CHANGES IN URINARY OR BOWEL CONTROL DESCRIPTION OF PROCEDURE THE PATIENT WAS BROUGHT TO THE PROCEDURE ROOM AND PLACED IN THE PRONE POSITION. THE LUMBOSACRAL AREA WAS CLEANED WITH CHLORAPREP SOLUTION AND DRAPED ASEPTICALLY. THE PROCEDURE WAS DONE UNDER STERILE CONDITIONS. I CHECKED LATERALITY AND THE LEVEL WHERE THE PROCEDURE WAS GOING TO BE PERFORMED WITH THE PATIENT AND THE SUPPORTING STAFF AT THE MOMENT OF THE TIME OUT IN THE PROCEDURE ROOM. UNDER FLUOROSCOPIC GUIDANCE, THE TARGET POINT WAS SELECTED AT THE RIGHT AND LEFT L4-L5 AND RIGHT AND LEFT L5-S1 FACET JOINT. TARGET POINT WAS SELECTED AFTER LATERAL ROTATION AND TILT OF THE MAGNIFIER OF THE C-ARM. LIDOCAINE 0.5% WAS USED TO NUMB THE SKIN AND THE SUBCUTANEOUS TISSUE BELOW IT. SPINAL NEEDLES, 22-GAUGE, WERE ADVANCED UNDER FLUOROSCOPIC GUIDANCE AND FOLLOWING PATIENT FEEDBACK UNTIL THE TARGETS WERE TOUCHED. THE POSITION OF THE NEEDLES WAS VERIFIED WITH AP AND LATERAL VIEWS. AFTER PROPER POSITION OF THE NEEDLES WAS ACHIEVED, ISOVUE-M DYE 30% 0.1 ML WAS INJECTED SHOWING ADEQUATE SPREAD OF THE DYE. THEN A SOLUTION OF 1.9 ML OF BUPIVACAINE 0.125% OF KENALOG 10 MG WAS INJECTED AT EACH SITE. THERE WAS NO EVIDENCE OF BLOOD, PARESTHESIA OR CEREBROSPINAL FLUID DURING THE PROCEDURE. THE PATIENT WAS SENT TO THE RECOVERY ROOM. THE PATIENT WAS MOVING THE EXTREMITIES AND DOING WELL. THERE WAS NO COMPLICATION DURING THE PROCEDURE. FLUOROSCOPY TIME WAS 35 SECONDS POST PROCEDURE NOTE THE PATIENT WILL BE SEEN IN A FOLLOW UP IN THE NEXT FEW WEEKS. INSTRUCTIONS WERE GIVEN, QUESTIONS WERE ANSWERED, AND THE PATIENT EXPRESSED UNDERSTANDING AND AGREES WITH THE PLAN. I, WICHO WEAVER, DOCUMENTED THE ABOVE INFORMATION ACTING A SCRIBE FOR DR. EVANS. I HAVE REVIEWED THE ABOVE DOCUMENT, WRITTEN BY WICHO WEAVER SCRIBVioleta AND I VERIFY THAT IT IS ACCURATE DIAGNOSTIC IMAGING [facility] FACET BLOCK (PAIN)[id number] PROCEDURE CODES 70296 INJ PARAVERT F JNT L/S 1 LEV 49749 INJ PARAVERT F JNT L/S 2 LEV 6045F RADXPS IN END [id number] PXD DISPOSITION & COMMUNICATION FOLLOW UP 3 WEEKS ELECTRONICALLY SIGNED BY SYEDA EVANS MD ON 03/22/2017 AT 09:16 PM EDT DISCLAIMER : THIS IS A VISIT SUMMARY EXTRACTED FROM THE [employer] CHART. IT IS NOT A COPY OF THE [facility] PROGRESS NOTE. MTDD
== END ==
LOC: M PAIN 10:30
PROVIDERS: ATTEND Anesthesiology
DX: G89.29 Other chronic pain (principal); M47.816 Spondylosis without myelopathy or radiculopathy, lumbar region; M47.817 Spondylosis without myelopathy or radiculopathy, lumbosacral region; D51.9 Vitamin B12 deficiency anemia, unspecified; J44.9 Chronic obstructive pulmonary disease, unspecified; G47.33 Obstructive sleep apnea (adult) (pediatric); Z88.2 Allergy status to sulfonamides; Z79.899 Other long term (current) drug therapy
CPT/HCPCS: 64493; 64494; J3301; Q9967

== ENCOUNTER → 2017-06-02 | Outpatient (REF) | payer BC ==
[~2017-06-02] MED LIST changes: -BUPIVACAINE HCL 0.25% 30 ML VIAL As Ordered ONE; -ISOVUE-M 300 61% 15ML VIAL (Q9967) As Ordered ONE; -LIDOCAINE 1% SDV INJ 30 ML VIAL As Ordered ONE; -TRIAMCINOLONE ACETONIDE SUSP 40 MG/ML VIAL (J3301) As Ordered ONE; -diazePAM 5 MG TAB As Ordered ONE; -oxyCODONE 5MG TAB As Ordered ONE
[2017-06-02 15:26] LABS: IMMUNOGLOBULIN G 1890 MG/DL (681-1648); TOTAL PROTEIN 7.9 GM/DL (6.4-8.2)
[2017-06-04 00:08] LABS: FREE LAMBDA LIGHT CHAINS SERUM 11.5 mg/L (5.7-26.3); KAPPA/LAMBDA RATIO SERUM 2.09 (0.26-1.65)
[2017-06-06 13:59] LABS: ALBUMIN 4.16 GM/DL (3.29-5.55); ALBUMIN % 52.6 % (55.8-66.1); GAMMA GLOBULIN % 22.7 % (11.1-18.8)
== END ==
LOC: M LAB REF 13:49
PROVIDERS: ATTEND Internal Medicine Medical Oncology
DX: D47.2 Monoclonal gammopathy (principal)

== ENCOUNTER → 2017-06-06 | Outpatient (CLI) | payer BC ==
[2017-06-06 10:54] LABS: BASO % 0.5 % (0.0-1.0); EOS # 0.1 10^3/uL (0.0-0.50); EOS % 1.7 % (0.0-3.0); IMMATURE GRANULOCYTE % 0.5 % (0-0); LYMPH # 1.7 10^3/uL (1.5-4.5); LYMPH % 28.5 % (24.0-44.0); MEAN CORPUSCULAR HEMOGLOBIN 29.9 pg (27.0-33.0); MEAN CORPUSCULAR HGB CONC 32.9 g/dl (32.0-36.5); MEAN CORPUSCULAR VOLUME 90.9 fl (80.0-96.0); MONO # 0.4 10^3/uL (0.0-0.8); MONO % 7.1 % (0.0-5.0); NEUTROPHILS # 3.6 10^3/uL (1.8-7.7); NEUTROPHILS % 61.7 % (36.0-66.0); PLATELET COUNT, AUTOMATED 264 10^3/uL (150-450); RED CELL DISTRIBUTION WIDTH 14.2 % (11.5-14.5); WHITE BLOOD COUNT 5.8 10^3/uL (4.0-10.0)
--- NOTE | 2017-06-07 07:31 | REP ---
Skeletal survey: A comparison is 12/12/2015. Calvarium AP and lateral views: There are no lytic lesions. 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 Degenerative disc disease in the cervical spine at C 05/06 and C6-7 is again identified, unchanged. Cervical spine two views: There are no lytic lesions. Degenerative disc disease at C5-6. C6-7 is unchanged. Facet osteoarthritis is unchanged. Accessory ossicle at the tip of the C7 spinous process is unchanged. Thoracic spine AP and lateral views: There are no lytic lesions. Vertebral body heights are normal. Moderate degenerative disc disease is again identified throughout the thoracic spine, unchanged. The pedicles are unremarkable. There is no interval change. Lumbar spine two views: There is scoliosis convex left, unchanged. There are no lytic lesions. Degenerative disc disease at L1-2. L2-3 is unchanged. AP pelvis: There are no lytic lesions. Sacroiliac articulations and right and left hip articulations are unremarkable and unchanged. Bilateral humeri AP views: There are no lytic lesions. Mineralization is normal. No unusual calcifications. There is no interval change. The bilateral femurs, AP views: There are no lytic lesions. Mineralization is normal. There are no unusual calcifications. There is a left knee arthroplasty, unchanged. Signed by Kristofer Bautista MD 06/07/2017 07:24 A
== END ==
LOC: M LAB 09:39
PROVIDERS: ATTEND Internal Medicine Medical Oncology
DX: D64.9 Anemia, unspecified (principal)

== ENCOUNTER → 2017-06-11 | Outpatient (CLI) | payer BC ==
[2017-06-11 11:33] LABS: FREE T4 0.94 NG/DL (0.76-1.46)
== END ==
LOC: M LAB 10:35
DX: E03.9 Hypothyroidism, unspecified (principal)

== ENCOUNTER → 2017-06-17 | Outpatient (CLI) | payer BC ==
--- NOTE | 2017-06-30 00:37 | ECWPNPC ---
PATIENT NAME: ASHA FLOWER : 1955 GENDER: FEMALE VISIT DATE: 06/17/2017 DISCHARGE DATE: 06/17/17 1123 VISIT LOCKED DATE TIME: PHYSICIAN: SYEDA EVANS RESOURCE: SYEDA EVANS REASON FOR APPOINTMENT 1. NECK AND BACK PAIN HISTORY OF PRESENT ILLNESS HISTORY OF PRESENT ILLNESS: PAIN THE PATIENT DESCRIBES THE PAIN... 61 YEAR OLD FEMALE PATIENT WITH HISTORY OF CHRONIC NECK AND BACK PAIN. PATIENT DESCRIBES THE PAIN ACHING, TENDER, THROBBING, SORE, SHOOTING, ACHING, AND HAVING IT ALL THE TIME WITH A PAIN SCORE OF 7/10. PATIENT REPORTS HAVING SEVERE PAIN IN THE SCIATIC REGION THAT HAS GOTTEN PROGRESSIVELY WORSE. PATIENT RECEIVED A LUMBAR FACET BLOCK ON 03/22/17 AND STATES THAT THE INJECTION HELPED WITH THE AXIAL PAIN SHE WAS HAVING IN HER BACK. PATIENT IS CURRENTLY USING ROBAXIN AND STATES THAT THE MEDICATION AIDS IN PAIN RELIEF. PATIENT DENIES UNEXPLAINABLE WEIGHT LOSS, FEVER, CHILLS, NEW CHANGES ON HER URINARY OR BOWEL CONTROL. FALL RISK SCREENING: SCREENING :NO FALLS IN THE PAST YEAR CURRENT MEDICATIONS TAKING METOPROLOL SUCCINATE 25 MG TABLET EXTENDED RELEASE 24 HOUR 1/2 TABLET ORALLY DAILY TAKING LOSARTAN POTASSIUM 50 MG TABLET 1 TABLET ORALLY ONCE A DAY TAKING LEVOTHYROXINE SODIUM 50 MCG TABLET 1 TABLET ORALLY SAT. AND SUN. TAKING VITAMIN B12 1000 UNITS TABLET 1 TABLET ORALLY ONCE A DAY TAKING VITAMIN D 5000 UNITS TABLET ORALLY DAILY TAKING PAXIL 10 MG TABLET 1 TABLET IN THE MORNING ORALLY ONCE A DAY TAKING ROBAXIN 500 MG TABLET 1.5 TABLETS ORALLY Q8H PRN FOR SEVERE PAIN EPISODES TAKING LEVOTHYROXINE SODIUM 75 MCG TABLET 1 TABLET ON AN EMPTY STOMACH IN THE MORNING ORALLY ONCE A DAY M-F DISCONTINUED NALTREXONE 380 MG SUSPENSION RECONSTITUTED 4 ML INTRAMUSCULAR MEDICATION LIST REVIEWED AND RECONCILED WITH THE PATIENT PAST MEDICAL HISTORY VITAMIN B12 DEFICIENCY IRRITABLE BOWEL SYNDROME DIVERTICULOSIS ASTHMA ABNORMAL PAP SMEAR/CRYO PANCREATITIS/2004 OBESITY HX. OF PROTEIN AND BLOOD IN URINE-SEE DR. MIAN DYE WITH CPAP FIBROMYALGIA THYROID ISSUES NERVE CONDUCTION TEST WITH NEUROLOGY WAS NEGATIVE SYNCOPY ALLERGIES SULFAMETHOXAZOLE: GETS YEASTS INFECTIONS EASILY ON THIS: SIDE EFFECTS SOCIAL HISTORY GENERAL: TOBACCO USE ARE YOU A:NONSMOKER ALCOHOL SCREENING POINTS0 INTERPRETATIONNEGATIVE RECREATIONAL DRUG USE DRUG USE?NO CAFFEINE CAFFEINE USE?NO HIV / HEP-C SCREENING HIV TEST OFFERED TO PATIENT:YES DATE OFFERED:10/29/2016 TEST ACCEPTED:NO HEP-C TEST OFFERED TO PATIENT:YES DATE OFFERED:10/29/2016 REASON:PATIENT DECLINED TEST ACCEPTED:NO REASON:PATIENT DECLINED UATSDIN [id number] [employer] LANGUAGE LANGUAGES SPOKEN:ICELANDIC LEARNING BARRIERS / SPECIAL NEEDS BARRIERS TO LEARNING?NO HEARING IMPAIRED?NO VISION IMPAIRED?YES :CORRECTIVE LENSES READING GLASSES COGNITIVELY IMPAIRED?NO READINESS TO LEARN?YES LEARNING PREFERENCES?NO LEARNING CAPABILITIES PRESENT?YES EMOTIONAL BARRIERS?NO SPECIAL DEVICES?NO BUTTON SAWYER NEEDED?NO PAIN CLINIC PFS, CLERGY, PUBLIC HEALTH REFERRALS PFS REFERRAL NEEDED?NO CLERGY REFERRAL NEEDED?NO PUBLIC HEALTH REFERRAL NEEDED?NO WAS THE PROVIDER NOTIFIED OF ANY PERTINENT INFO?NO HAS THE PATIENT BEEN EDUCATED REGARDING HIS/HER PLAN OF CARE?YES PLEASE DOCUMENT ANY ADDTIONAL DETAILS. CHANA LUMBAR FACET THERAPEUTIC INJ HAS THE PATIENT BEEN EDUCATED REGARDING PAIN, THE RISK FOR PAIN, THE IMPORTANCE OF EFFECTIVE PAIN MANAGEMENT, AND THE PAIN ASSESSMENT PROCESS?YES REVIEWED BY: LIVIER. PATIENT: 06/17 910 AD. [facility] DIRECTIVES HEALTH CARE PROXY?NO WOULD YOU LIKE MORE INFORMATION?YES GIVEN DO YOU HAVE A DNR?NO WOULD YOU LIKE MORE INFORMATION?NO LIVING WILL?NO WOULD YOU LIKE MORE INFORMATION?NO POWER OF GARNETT MECHANIC?NO WOULD YOU LIKE MORE INFORMATION?NO DOMESTIC VIOLENCE DO YOU FEEL SAFE IN YOUR ENVIRONMENT?YES REVIEW OF SYSTEMS REVIEWED BY: PROVIDER: SYEDA EVANS MD . CONSTITUTIONAL: ANY CHANGE IN YOUR MEDICAL CONDITION? YES,THRYOID MED HAS BEEN INCREASED. ALSO HAVING CARDIAC WORK UP FOR SYNCOPE EPISODE IN APR. . CHILLS NO . FEVER NO . INFECTION: DO YOU HAVE NEW INFECTIONS? NO . DO YOU HAVE HISTORY OF MRSA? NO . MUSCULOSKELETAL: ANY NEW PATTERNS OF PAIN OR NUMBNESS? YES, RIGHT SCIATIC PAIN HAS GOTTEN WORSE OVER THE PAST 5 MONTHS--IT IS GOING DOWN FARTHER ON THE LEG. HAS BEEN DOING HOT AND COLD AND BIOFREEZE WITHOUT RELIEF . GASTROENTEROLOGY: ANY NEW CHANGE IN BOWEL CONTROL? NO . GENITOURINARY: ANY NEW CHANGE IN BLADDER CONTROL? NO . IS THERE A CHANCE YOU COULD BE ? NO . HEMATOLOGY/LYMPH: DO YOU TAKE ANY BLOOD THINNERS? (FOR EXAMPLE- COUMADIN, PLAVIX, AGGRENOX, PLATEL, PRADAXA, OR XARELTO) NO . WHEN WAS YOUR LAST DOSE? DATE: TIME: . NEUROLOGY: HAVE YOU FALLEN IN THE PAST 6 MONTHS? YES, IN APR.--SHE PASSED OUT. WAS HOSPITALIZED OVER NIGHT IN [facility]. HAVING A CARDIAC WORK UP FOR THIS. . ANY NEW EXTREMITY NUMBNESS OR WEAKNESS? NO . CARDIOLOGY: DO YOU HAVE A PACEMAKER OR DEFIBRILLATOR? NO . RESPIRATORY: HAVE YOU BEEN SICK IN THE PAST WEEK? NO . FEVER NO . FLU LIKE SYMPTOMS? NO . COUGH NO . INTEGUMENTARY: DO YOU HAVE ANY RASHES OR OPEN SORES? NO . ALLERGIC/IMMUNO: ARE YOU ALLERGIC TO SHELLFISH OR IV DYE? NO . ANY NEW ALLERGIES? NO . PSYCHIATRIC: DO YOU HAVE THOUGHTS OF HURTING YOURSELF OR SOMEONE ELSE? NO . ARE YOU ABUSED, NEGLECTED, OR IN AN UNSAFE ENVIRONMENT? NO . ENDOCRINOLOGY: ARE YOU DIABETIC? NO . OTHER: DO YOU NEED ANY PRESCRIPTIONS? YES . IF YES, PLEASE LIST: HYDROCODONE . ANY NEW PROBLEMS WITH YOUR MEDICATIONS? NO . WHEN DID YOU LAST EAT? ____ . WHEN DID YOU LAST DRINK? ____ . WHAT DID YOU LAST DRINK? ____ . NAME OF PERSON DRIVING YOU HOME? ____ . DO YOU HAVE ANY OTHER QUESTIONS OR CONCERNS NO . VITAL SIGNS WT 314 LBS, HT 66.5 IN, BMI 49.92 INDEX, BP 172/91 MM HG, HR 69 /MIN, RR 16 /MIN, TEMP 97.1 F, OXYGEN SAT % 99%, SAFE IN ENV? (Y/N) Y, NA INITIALS SD 08:58, REVIEWED BY: SARAH. EXAMINATION : PATIENT IS ALERT O X 3 AND COOPERATIVE. LIMPING FROM THE RIGHT LEG. RIGHT LEG WEAKER THEN THE LEFT AT EXTENSION AND FLEXION. MRI OF THE LUMBAR SPINE DONE ON 10/04/15 SHOWS OSTEOARTHRITIC CHANGES AT L4-L5 AND L5-S1 AND DISC BULGES AT L1-L2 AND L4-L5. 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 EM. CLINICAL NOTES: WE DISCUSSED SEVERAL ISSUES WITH MRS. FLOWER'S PAIN MANAGEMENT CASE. AT THIS TIME THE PATIENT WILL START HYDROCODONE FOR THE SOMATIC PAIN. PATIENT IS AWARE OF THE RISKS OF USING THIS MEDICATION AND HAS USED IT IN THE PAST AND FEELS IT IS SAFE TO USE THE MEDICATION. ISTOP REVIEWED [id number]. PATIENT DENIES ABUSE OF ANY MEDICATION, DENIES USE OF ILLEGAL SUBSTACNES, AND STATES SHE IS ONLY USING THE MEDICATION FOR PAIN MANAGEMENT. PATIENT WILL PERFORM A URINE TOXICOLOGY AT TODAY'S APPOINTMENT. DUE TO THE RADICULAR PAIN WELL THE DISC BULGES I WOULD LIKE TO PROCEED WITH A LUMBAR EPIDURAL. WE DISCUSSED THE RISKS, BENEFITS, AND ALTNERATIVES OF THE INJECTION AND THE PATIENT WOULD LIKE TO PROCEED AT THIS TIME. INSTRUCTIONS WERE GIVEN, QUESTIONS WERE ANSWERED, PATIENT REPORTS UNDERSTANDING AND AGREES WITH THE PLAN. I, WICHO WEAVER, DOCUMENTED THE ABOVE INFORMATION ACTING A SCRIBE FOR DR. EVANS. I HAVE REVIEWED THE ABOVE DOCUMENT, WRITTEN BY WICHO ADAMIBVioleta AND I VERIFY THAT IT IS ACCURATE. OTHERS START HYDROCODONE-ACETAMINOPHEN TABLET, 5-325 MG, 1 TABLET NEEDED, ORALLY, EVERY 6 HRS FOR PAIN MDD2, 30 DAY(S), 45, REFILLS 0 PROCEDURE CODES FA211 ESTABILISHED PATIENT [facility] CHARGE [id number] DOC MEDS VERIFIED W/PT OR RE G0921 PAIN ASSESS POS TOOL F/U PLAN DOC DISPOSITION & COMMUNICATION FOLLOW UP LESI AFTER APPROVAL ELECTRONICALLY SIGNED BY SYEDA EVANS MD ON 06/28/2017 AT 09:06 AM EST DISCLAIMER : THIS IS A VISIT SUMMARY EXTRACTED FROM THE [employer] CHART. IT IS NOT A COPY OF THE [employer] PROGRESS NOTE. DEIDRE
== END ==
LOC: M PAIN 09:00
PROVIDERS: ATTEND Anesthesiology
DX: M51.16 Intervertebral disc disorders with radiculopathy, lumbar region (principal); M47.816 Spondylosis without myelopathy or radiculopathy, lumbar region; M47.817 Spondylosis without myelopathy or radiculopathy, lumbosacral region; G89.29 Other chronic pain; Z79.899 Other long term (current) drug therapy; Z88.2 Allergy status to sulfonamides

== ENCOUNTER → 2017-07-19 | Outpatient (CLI) | payer BC ==
[2017-07-19 13:32] LABS: TOTAL T3 115.6 NG/DL (60.0-181.0)
[2017-07-19 13:37] LABS: FREE T4 0.91 NG/DL (0.76-1.46)
== END ==
LOC: M LAB 12:07
DX: E03.9 Hypothyroidism, unspecified (principal)
CPT/HCPCS: 84443

== ENCOUNTER → 2017-07-26 | Outpatient (CLI) | payer BC | LOC: M PAIN 08:30 | DX: Z53.29 Procedure and treatment not carried out because of patient's decision for other reasons (principal) ==

== ENCOUNTER → 2017-08-03 | Outpatient (CLI) | payer BC ==
[2017-08-03 17:29] LABS: ANION GAP 4 MEQ/L (8-16); BLOOD UREA NITROGEN 15 MG/DL (7-18); CALCIUM LEVEL 8.7 MG/DL (8.8-10.2); CARBON DIOXIDE LEVEL 30 MEQ/L (21-32); CHLORIDE LEVEL 107 MEQ/L (98-107); CREATININE FOR GFR 0.67 MG/DL (0.55-1.30); GLOMERULAR FILTRATION RATE > 60.0 (>45); GLUCOSE, FASTING 106 MG/DL (70-100); POTASSIUM SERUM 4.3 MEQ/L (3.5-5.1); SODIUM LEVEL 141 MEQ/L (136-145)
[2017-08-03 18:01] LABS: BASO % 0.4 % (0.0-1.0); EOS # 0.3 10^3/uL (0.0-0.50); EOS % 3.8 % (0.0-3.0); HEMATOCRIT 35.2 % (36.0-47.0); HEMOGLOBIN 11.4 g/dl (12.0-16.0); IMMATURE GRANULOCYTE % 0.4 % (0-0); LYMPH # 2.3 10^3/uL (1.5-4.5); LYMPH % 30.8 % (24.0-44.0); MEAN CORPUSCULAR HEMOGLOBIN 29.6 pg (27.0-33.0); MEAN CORPUSCULAR HGB CONC 32.4 g/dl (32.0-36.5); MEAN CORPUSCULAR VOLUME 91.4 fl (80.0-96.0); MONO # 0.5 10^3/uL (0.0-0.8); MONO % 6.6 % (0.0-5.0); NEUTROPHILS # 4.3 10^3/uL (1.8-7.7); PLATELET COUNT, AUTOMATED 266 10^3/uL (150-450); RED BLOOD COUNT 3.85 10^6/uL (4.00-5.40); RED CELL DISTRIBUTION WIDTH 13.4 % (11.5-14.5); WHITE BLOOD COUNT 7.5 10^3/uL (4.0-10.0)
== END ==
LOC: M LAB 16:25
DX: R55 Syncope and collapse (principal)
CPT/HCPCS: 80048

== ENCOUNTER → 2017-09-01 | Outpatient (CLI) | payer BC | LOC: M PAIN 09:15 | DX: M47.816 Spondylosis without myelopathy or radiculopathy, lumbar region (principal); M79.1 Myalgia; G89.29 Other chronic pain; D51.9 Vitamin B12 deficiency anemia, unspecified; J45.909 Unspecified asthma, uncomplicated; G47.33 Obstructive sleep apnea (adult) (pediatric); E07.9 Disorder of thyroid, unspecified; E66.01 Morbid (severe) obesity due to excess calories; Z68.43 Body mass index [BMI] 50.0-59.9, adult; Z79.82 Long term (current) use of aspirin; Z79.891 Long term (current) use of opiate analgesic; Z79.899 Other long term (current) drug therapy; Z88.2 Allergy status to sulfonamides; Z95.9 Presence of cardiac and vascular implant and graft, unspecified; Z96.652 Presence of left artificial knee joint; Z86.79 Personal history of other diseases of the circulatory system | CPT/HCPCS: G0463 ==

== ENCOUNTER → 2017-09-17 | Outpatient (CLI) | payer BC ==
[2017-09-17 10:13] LABS: ESTIMATED AVERAGE GLUCOSE 94 MG/DL (60-110); HEMOGLOBIN A1c 4.9 %
== END ==
LOC: M LAB 08:45
DX: E03.9 Hypothyroidism, unspecified (principal); E04.2 Nontoxic multinodular goiter; E55.9 Vitamin D deficiency, unspecified; R73.03 Prediabetes
CPT/HCPCS: 84443

== ENCOUNTER → 2018-03-13 | Outpatient (REF) | payer BC, MEDICARE ==
[2018-03-13 18:56] LABS: VITAMIN B12 LEVEL 365 PG/ML (247-911)
== END ==
LOC: M LAB REF 17:34
DX: D51.8 Other vitamin B12 deficiency anemias (principal)
CPT/HCPCS: 82607

== ENCOUNTER → 2018-03-21 | Outpatient (CLI) | payer BC, MEDICARE | LOC: M LRY 16:19 | DX: J45.901 Unspecified asthma with (acute) exacerbation (principal); J84.10 Pulmonary fibrosis, unspecified; I51.7 Cardiomegaly | CPT/HCPCS: 71046; 94640 ==

== ENCOUNTER → 2018-03-24 | Outpatient (CLI) | payer MEDICARE, BC | LOC: M PAIN 09:45 | DX: M47.816 Spondylosis without myelopathy or radiculopathy, lumbar region (principal); Z79.891 Long term (current) use of opiate analgesic; M79.1 Myalgia; E53.8 Deficiency of other specified B group vitamins; K58.9 Irritable bowel syndrome, unspecified; K57.90 Diverticulosis of intestine, part unspecified, without perforation or abscess without bleeding; J45.909 Unspecified asthma, uncomplicated; E66.9 Obesity, unspecified; Z68.43 Body mass index [BMI] 50.0-59.9, adult; G47.33 Obstructive sleep apnea (adult) (pediatric); Z96.652 Presence of left artificial knee joint; Z79.899 Other long term (current) drug therapy; Z88.2 Allergy status to sulfonamides | CPT/HCPCS: G0463 ==

== ENCOUNTER → 2018-05-02 | Outpatient (CLI) | payer MEDICARE, BC | LOC: M PLARAD 12:31 | DX: C90.00 Multiple myeloma not having achieved remission (principal) | CPT/HCPCS: 78816 ==

== ENCOUNTER → 2018-05-24 | Outpatient (CLI) | payer MEDICARE, BC | LOC: M PAIN 08:30 | DX: M47.816 Spondylosis without myelopathy or radiculopathy, lumbar region (principal); M79.18 Myalgia, other site; E53.8 Deficiency of other specified B group vitamins; J45.909 Unspecified asthma, uncomplicated; G47.33 Obstructive sleep apnea (adult) (pediatric); E66.01 Morbid (severe) obesity due to excess calories; Z68.43 Body mass index [BMI] 50.0-59.9, adult; Z79.899 Other long term (current) drug therapy; Z88.8 Allergy status to other drugs, medicaments and biological substances; Z91.09 Other allergy status, other than to drugs and biological substances; Z96.652 Presence of left artificial knee joint | CPT/HCPCS: G0463 ==

== ENCOUNTER → 2018-06-21 | Outpatient (REF) | payer MEDICARE, BC ==
[~2018-06-21] MED LIST changes: -BACL10TA5 PO; +BACL10TA8 PO; +PAXI10TA12 PO; +PROP10TA56
== END ==
LOC: M SFHCLERA 17:36
PROVIDERS: ATTEND Nurse Practitioner Family
DX: R30.0 Dysuria (principal)
CPT/HCPCS: 81002; 87088; 87186; G0463

== ENCOUNTER → 2018-07-03 | Outpatient (CLI) | payer MEDICARE, BC ==
[2018-07-03 12:16] LABS: FREE THYROXINE INDEX 2.9 % (1.3-4.8); THYROID STIMULATING HORMONE 3.04 uIU/ML (0.358-3.740); THYROXINE (T4) 10.9 UG/DL (4.5-12.0)
== END ==
LOC: M LAB 10:59
PROVIDERS: ATTEND Nurse Practitioner Women's Health
DX: E03.9 Hypothyroidism, unspecified (principal); N39.0 Urinary tract infection, site not specified

== ENCOUNTER → 2018-07-03 | Outpatient (REF) | payer MEDICARE, BC ==
[2018-07-03 13:46] LABS: AMORPHOUS SEDIMENT LARGE (NEGATIVE); APPEARANCE, URINE CLOUDY (CLEAR); BACTERIA, URINE AUTO NEGATIVE (NEGATIVE); BILIRUBIN, URINE AUTO NEGATIVE (NEGATIVE); BLOOD, URINE BLOOD NEGATIVE (NEGATIVE); COLOR, URINE YELLOW (YELLOW); GLUCOSE, URINE (UA) AUTO NEGATIVE (NEGATIVE); KETONE, URINE AUTO NEGATIVE (NEGATIVE); LEUKOCYTE ESTERASE, URINE AUTO NEGATIVE (NEGATIVE); MUCUS, URINE SMALL (NEGATIVE); NITRITE, URINE AUTO NEGATIVE (NEGATIVE); PROTEIN, URINE AUTO NEGATIVE (NEGATIVE); RBC, URINE AUTO 2 /HPF (0-3); SPECIFIC GRAVITY URINE AUTO 1.025 (1.002-1.035); SQUAMOUS EPITHELIAL CELL UR AU 3 /HPF (0-6); UROBILINOGEN, URINE AUTO 0.2 mg/dL (0.0-2.0); WBC, URINE AUTO 3 /HPF (0-3)
== END ==
LOC: M LAB REF 13:01
PROVIDERS: ATTEND Nurse Practitioner Women's Health
DX: N39.0 Urinary tract infection, site not specified (principal)

== ENCOUNTER → 2018-08-24 | Outpatient (CLI) | payer MEDICARE, BC ==
--- NOTE | 2018-09-09 23:54 | ECWPNPC ---
PATIENT NAME: ASHA FLOWER : 1955 GENDER: FEMALE VISIT DATE: 08/24/2018 DISCHARGE DATE: 08/24/18915 VISIT LOCKED DATE TIME: PHYSICIAN: MASHA AREVALO RESOURCE: MASHA AREVALO REASON FOR APPOINTMENT 1. BACK PAIN, 3 MONTHS HISTORY OF PRESENT ILLNESS HISTORY OF PRESENT ILLNESS: HERE FOR F/U OF GENERALIZED BODY PAIN.USING HYDROCODONE SPARINGLY FOR SEVERE PAIN EPISODES.RATING PAIN VAS 7/10. PAIN THE PATIENT DESCRIBES THE PAIN... FALL RISK SCREENING: SCREENING : NO FALLS IN THE PAST YEAR. CURRENT MEDICATIONS TAKING METOPROLOL SUCCINATE ER 25 MG TABLET EXTENDED RELEASE 24 HOUR 1 TABLET ORALLY ONCE A DAY TAKING LOSARTAN POTASSIUM 50 MG TABLET 1 TABLET ORALLY ONCE A DAY TAKING LEVOTHYROXINE SODIUM 75 MCG TABLET 1 TABLET ORALLY DAILY, NOTES: SURACUSE TAKING RANITIDINE HCL 300 MG CAPSULE 1 CAP ORALLY BID, NOTES: [facility] TAKING FLUOXETINE 20 MGS ORALLY DAILY TAKING VITAMIN B12 1000 UNITS TABLET 1 TABLET ORALLY ONCE A DAY TAKING CALCIUM 600 MG TABLET 1 TABLET WITH MEALS ORALLY TWICE A DAY TAKING SYMBICORT 80-4.5 MCG/ACT AEROSOL 2 PUFFS INHALATION BID, NOTES: PRN WITH EXACERBATION TAKING BACLOFEN 10 MG TABLET 1 TABLET WITH FOOD OR MILK ORALLY BEFORE BEDTIME, NOTES: PAIN CLINIC TAKING HYDROCODONE-ACETAMINOPHEN 5-325 MG TABLET 1 TABLET NEEDED ORALLY EVERY 6 HRS MDD4 #45 TAB SHOULD LAST 30 DAYS, NOTES: PAIN CLINIC TAKING VITAMIN E 100 UNIT CAPSULE 1 CAPSULE ORALLY ONCE A DAY TAKING MULTIVITAMIN ADULT TAKING VITAMIN D 5000 UNITS TABLET 1 TAB ORALLY Tue TAKING BACTROBAN NASAL 2 % OINTMENT 1 APPLICATION NASALLY TO EACH NARE TWICE A DAY MEDICATION LIST REVIEWED AND RECONCILED WITH THE PATIENT PAST MEDICAL HISTORY SLOW BURNING MULTIPE MYLEMONA HX. OF PROTEIN AND BLOOD IN URINE-[facility] IRRITABLE BOWEL SYNDROME-[place] [facility] DIVERTICULOSIS ASTHMA- DR. WOOTEN MARNIE WITH CPAP- DR. WOOTEN ABNORMAL PAP SMEAR/CRYO- DR. BATEMAN PANCREATITIS/2004 OBESITY VITAMIN B12 DEFICIENCY FIBROMYALGIA NERVE CONDUCTION TEST WITH NEUROLOGY WAS NEGATIVE HYPOTHYROIDISM- RENATA ENDOCRINLOGY SYNCOPE- DR. SHELTON ESSENTIAL HYPERTENSION ALLERGIES SULFAMETHOXAZOLE: GETS YEASTS INFECTIONS EASILY ON THIS: SIDE EFFECTS GLUE ON THE TAPE: PULLS SKIN OFF: SIDE EFFECTS METRONIDAZOLE: ABDOMINAL PAINS: SIDE EFFECTS SURGICAL HISTORY T & A HYSTERECTOMY WITH CERVICAL PRESERVATION 1996 CHOLECYSTECTOMY 2003 KNEE REPLACEMENT/LEFT 10/09 COLONOSCOPY/POLYP REMOVED/BENIGN 04/13 PARTIAL BOWEL REMOVED FOR CHRONIC DIVERTICULITIS 12 INCHES [place] RIGHT WRIST 10/2016 CARDIAC CATH 2017 BILAT EYE VESSELS LASERED TO PREVENT GLAUCOMA 03/2018 COLONOSCOPY [facility]. [address] KISHOR GO 08/2017 FACIL MOLE REMOVAL 08/23/18 FAMILY HISTORY FATHER: 78 YRS, MELANOMA MOTHER: 82 YRS, ARTHIRITIS, ASTHMA, HEART DISEASE 2 BROTHER(S) , 1 SISTER(S) . 2 SON(S) . 1 BROTHER OF ESOPHAGEAL CANCER AGE 601 BROTHER HAS [id number] SISTER-HEALTHY1 SON AGE 21- DUCHENNE MUSCULAR DYSTROPHY1 SON HTN-HYPERTHYROIDISM. SOCIAL HISTORY GENERAL: TOBACCO USE ARE YOU A:NONSMOKER ALCOHOL SCREENING DID YOU HAVE A DRINK CONTAINING ALCOHOL IN THE PAST YEAR?NO POINTS0 INTERPRETATIONNEGATIVE RECREATIONAL DRUG USE DRUG USE?NO CAFFEINE CAFFEINE USE?NO SEXUAL HX HAD SEX IN THE LAST 12 MONTHS (VAGINAL, ORAL, OR ANAL)?YES WITHMEN ONLY LMP:HYSTERECTOMY HAVE YOU EVER HAD AN STD?NO HIV / HEP-C SCREENING HIV TEST OFFERED TO PATIENT:YES DATE OFFERED:09/05/2017 TEST ACCEPTED:NO HEP-C TEST OFFERED TO PATIENT:YES DATE OFFERED:09/05/2017 REASON:PATIENT DECLINED TEST ACCEPTED:NO REASON:PATIENT DECLINED DENOMINATIONAL [id number] CAODAISM LANGUAGE LANGUAGES SPOKEN:OCCITAN EDUCATION LEVEL OF 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 EXERCISE: NONE. MARITAL STATUS: -1977. OTHERS AT HOME: SPOUSE. PAIN CLINIC PFS, CLERGY, PUBLIC HEALTH REFERRALS PFS REFERRAL NEEDED?NO CLERGY REFERRAL NEEDED?NO PUBLIC HEALTH REFERRAL NEEDED?NO WAS THE PROVIDER NOTIFIED OF ANY PERTINENT INFO?NO HAS THE PATIENT BEEN EDUCATED REGARDING HIS/HER PLAN OF CARE?YES PLEASE DOCUMENT ANY ADDTIONAL DETAILS. CHANA LUMBAR FACET THERAPEUTIC INJ HAS THE PATIENT BEEN EDUCATED REGARDING PAIN, THE RISK FOR PAIN, THE IMPORTANCE OF EFFECTIVE PAIN MANAGEMENT, AND THE PAIN ASSESSMENT PROCESS?YES HOUSING: OWNS HOME. ADVANCE DIRECTIVE ADVANCE DIRECTIVE DISCUSSED WITH PATIENT:YES RHETT IS HCP HOSPITALIZATION/MAJOR DIAGNOSTIC PROCEDURE PANCREATITIS SUB DURAL HEMATOMA SURGERY RELATED REVIEW OF SYSTEMS REVIEWED BY: PROVIDER: MASHA AGUIRRE . CONSTITUTIONAL: ANY CHANGE IN YOUR MEDICAL CONDITION? NO . CHILLS NO . FEVER NO . INFECTION: DO YOU HAVE NEW INFECTIONS? NO . DO YOU HAVE HISTORY OF MRSA? NO . MUSCULOSKELETAL: ANY NEW PATTERNS OF PAIN OR NUMBNESS? NO . GASTROENTEROLOGY: ANY NEW CHANGE IN BOWEL CONTROL? NO . GENITOURINARY: ANY NEW CHANGE IN BLADDER CONTROL? NO . IS THERE A CHANCE YOU COULD BE ? NO . HEMATOLOGY/LYMPH: DO YOU TAKE ANY BLOOD THINNERS? (FOR EXAMPLE- COUMADIN, PLAVIX, AGGRENOX, PLATEL, PRADAXA, OR XARELTO) NO . WHEN WAS YOUR LAST DOSE? DATE: TIME: . NEUROLOGY: HAVE YOU FALLEN IN THE PAST 12 MONTHS? NO . ANY NEW EXTREMITY NUMBNESS OR WEAKNESS? NO . CARDIOLOGY: DO YOU HAVE A PACEMAKER OR DEFIBRILLATOR? NO . RESPIRATORY: HAVE YOU BEEN SICK IN THE PAST WEEK? NO . FEVER NO . FLU LIKE SYMPTOMS? NO . COUGH NO . INTEGUMENTARY: DO YOU HAVE ANY RASHES OR OPEN SORES? NO . ALLERGIC/IMMUNO: ARE YOU ALLERGIC TO IV DYE? NO . ANY NEW ALLERGIES? NO . PSYCHIATRIC: DO YOU HAVE THOUGHTS OF HURTING YOURSELF OR SOMEONE ELSE? NO . ARE YOU ABUSED, NEGLECTED, OR IN AN UNSAFE ENVIRONMENT? NO . ENDOCRINOLOGY: ARE YOU DIABETIC? NO . OTHER: DO YOU NEED ANY PRESCRIPTIONS? YES . IF YES, PLEASE LIST: ____HYDROCODONE . ANY NEW PROBLEMS WITH YOUR MEDICATIONS? YES INCREASED BP . WHEN DID YOU LAST EAT? ____ . WHEN DID YOU LAST DRINK? ____ . WHAT DID YOU LAST DRINK? ____ . NAME OF PERSON DRIVING YOU HOME? ____ . DO YOU HAVE ANY OTHER QUESTIONS OR CONCERNS NO . VITAL SIGNS WT 337.4 LBS, HT 66.5 IN, BMI 53.64 INDEX, BP 170/84 MM HG, HR 66 /MIN, RR 18 /MIN, TEMP 98.3 F, OXYGEN SAT % 95%, NA INITIALS SC 08:39. EXAMINATION GENERAL EXAMINATION: GENERAL APPEARANCE:AWAKE,ALERT ,PLEAASANT . PSYCHAFFECT NORMAL . LUNGS:LUNG STEWART ARE CLEAR TO AUSCULTATION BILATERALLY. GOOD MOVEMENT OF AIR . HEART:S1, S2 IN A REGULAR RATE AND RHYTHM. NO SIGNIFICANT MURMURS, RUBS OR GALLOPS NOTED . 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 (REF # ) BRINGS IN MEDICATIONS WHICH IS APPROPRIATE FOR WHAT WAS DISPENSED. RECENT URINE TOXICOLOGY REVIEWED. NO UNAUTHORIZED MEDICATIONS. NO ILLICIT SUBSTANCES AND PRESCRIBED MEDICATIONS WERE PRESENT. , RISKS AND BENEFITS OF NARCOTIC/OPIOD MEDICATIONS WERE REVIEWED WITH PATIENT - THIS INCLUDES BUT IS NOT LIMITED TO RISK OF DEPENDANCE/DEVELOPMENT OF ADDICTION, MOOD DISTURBANCE AND DEPRESSION, OSTEOPOROSIS, HORMONAL AND LABIDAL CHANGES, RESPIRATORY DEPRESSION AND . PATIENT IS ADVISED NOT TO DRIVE OR DRINK ALCOHOL WHILE ON THESE MEDICATIONS. PROCEDURE CODES FA211 ESTABILISHED PATIENT [facility] FACILITY CHARGE DISPOSITION & COMMUNICATION FOLLOW UP 3 MONTHS ELECTRONICALLY SIGNED BY TIMOTHY CHA ON 09/08/2018 AT 12:16 PM EST DISCLAIMER : THIS IS A VISIT SUMMARY EXTRACTED FROM THE [employer] CHART. IT IS NOT A COPY OF THE [employer] PROGRESS NOTE. DEIDRE
== END ==
LOC: M PAIN 08:30
PROVIDERS: ATTEND Nurse Practitioner Family
DX: M47.816 Spondylosis without myelopathy or radiculopathy, lumbar region (principal); M79.10 Myalgia, unspecified site; J45.909 Unspecified asthma, uncomplicated; G47.33 Obstructive sleep apnea (adult) (pediatric); M79.7 Fibromyalgia; E03.9 Hypothyroidism, unspecified; I10 Essential (primary) hypertension; E66.01 Morbid (severe) obesity due to excess calories; Z68.43 Body mass index [BMI] 50.0-59.9, adult; Z88.2 Allergy status to sulfonamides; Z88.8 Allergy status to other drugs, medicaments and biological substances; Z91.09 Other allergy status, other than to drugs and biological substances; Z96.652 Presence of left artificial knee joint; Z85.79 Personal history of other malignant neoplasms of lymphoid, hematopoietic and related tissues; Z86.79 Personal history of other diseases of the circulatory system

== ENCOUNTER → 2018-11-17 | Outpatient (CLI) | payer MEDICARE, BC ==
[~2018-11-17] MED LIST changes: -LIDO5OI EXT; +LIDO5OIN11 EXT; +VITA100018 PO; -VITA100072 PO
--- NOTE | 2018-12-06 02:07 | ECWPNPC ---
PATIENT NAME: ASHA FLOWER : 1955 GENDER: FEMALE VISIT DATE: 11/17/2018 DISCHARGE DATE: 11/17/18946 VISIT LOCKED DATE TIME: PHYSICIAN: MASHA AREVALO RESOURCE: MASHA AREVALO REASON FOR APPOINTMENT 1. BACK PAIN HISTORY OF PRESENT ILLNESS HISTORY OF PRESENT ILLNESS: HERE FOR F/U OF GENERALIZED BODY PAIN.USING HYDROCODONE SPARINGLY FOR SEVERE PAIN EPISODES.RATING PAIN VAS 6/10.CURRENTLY USING CYCLOBENZAPRINE 10MG AT HS WHICH LATELY SHE HAS BEEN NOTICING IT ISNT HELPING.DISCUSSED TRIAL OF ROBAXIN. PAIN THE PATIENT DESCRIBES THE PAIN... THE PATIENT DESCRIBES THE PAIN... FALL RISK SCREENING: SCREENING :NO FALLS REPORTED IN THE LAST YEAR CURRENT MEDICATIONS TAKING LEVOTHYROXINE SODIUM 75 MCG TABLET 1 TABLET ORALLY DAILY, NOTES: [place] TAKING FLUOXETINE 20 MGS ORALLY DAILY TAKING VITAMIN B12 1000 UNITS TABLET 1 TABLET ORALLY ONCE A DAY TAKING CALCIUM 600 MG TABLET 1 TABLET WITH MEALS ORALLY TWICE A DAY TAKING SYMBICORT 80-4.5 MCG/ACT AEROSOL 2 PUFFS INHALATION BID, NOTES: PRN WITH EXACERBATION TAKING VITAMIN E 100 UNIT CAPSULE 1 CAPSULE ORALLY ONCE A DAY TAKING MULTIVITAMIN ADULT TAKING VITAMIN D 5000 UNITS TABLET 1 TAB ORALLY Tue TAKING BACTROBAN NASAL 2 % OINTMENT 1 APPLICATION NASALLY TO EACH NARE TWICE A DAY TAKING BACLOFEN 10 MG TABLET 1 TABLET WITH FOOD OR MILK ORALLY BEFORE BEDTIME, NOTES: PAIN CLINIC TAKING HYDROCODONE-ACETAMINOPHEN 5-325 MG TABLET 1 TABLET NEEDED ORALLY EVERY 6 HRS MDD4 #45 TAB SHOULD LAST 30 DAYS, NOTES: PAIN CLINIC TAKING LOSARTAN POTASSIUM 100 MG TABLET 1 TABLET ORALLY ONCE A DAY TAKING METOPROLOL SUCCINATE ER 25 MG TABLET EXTENDED RELEASE 24 HOUR 1 TABLET ORALLY ONCE A DAY TAKING PANTOPRAZOLE SODIUM 40 MG TABLET DELAYED RELEASE 1 TABLET ORALLY ONCE A DAY TAKING MAY USE CBD OIL DAILY NOT-TAKING RANITIDINE HCL 300 MG CAPSULE 1 CAP ORALLY BID, NOTES: [place] [facility] MEDICATION LIST REVIEWED AND RECONCILED WITH THE PATIENT PAST MEDICAL HISTORY SLOW BURNING MULTIPE MYLEMONA HX. OF PROTEIN AND BLOOD IN URINE-[facility] IRRITABLE BOWEL SYNDROME-[place] [facility] DIVERTICULOSIS ASTHMA- DR. WOOTEN MARNIE WITH CPAP- DR. WOOTEN ABNORMAL PAP SMEAR/CRYO- DR. BATEMAN PANCREATITIS/2004 OBESITY VITAMIN B12 DEFICIENCY FIBROMYALGIA NERVE CONDUCTION TEST WITH NEUROLOGY WAS NEGATIVE HYPOTHYROIDISM- [place] ENDOCRINLOGY SYNCOPE- DR. SHELTON ESSENTIAL HYPERTENSION ALLERGIES SULFAMETHOXAZOLE: GETS YEASTS INFECTIONS EASILY ON THIS - SIDE EFFECTS GLUE ON THE TAPE: PULLS SKIN OFF - SIDE EFFECTS METRONIDAZOLE: ABDOMINAL PAINS - SIDE EFFECTS SURGICAL HISTORY T & A HYSTERECTOMY WITH CERVICAL PRESERVATION 1996 CHOLECYSTECTOMY 2003 KNEE REPLACEMENT/LEFT 10/09 COLONOSCOPY/POLYP REMOVED/BENIGN 04/13 PARTIAL BOWEL REMOVED FOR CHRONIC DIVERTICULITIS 12 INCHES [place] RIGHT WRIST 10/2016 CARDIAC CATH 2017 BILAT EYE VESSELS LASERED TO PREVENT GLAUCOMA 03/2018 [facility]ONOSCOPY [facility]. [address] KISHOR GO 08/2017 FACIL MOLE REMOVAL 08/23/18 FAMILY HISTORY FATHER: 78 YRS, MELANOMA MOTHER: 82 YRS, ARTHIRITIS, ASTHMA, HEART DISEASE 2 BROTHER(S) , 1 SISTER(S) . 2 SON(S) . 1 BROTHER OF ESOPHAGEAL CANCER AGE 601 BROTHER HAS [id number] SISTER-HEALTHY1 SON AGE 21- DUCHENNE MUSCULAR DYSTROPHY1 SON HTN-HYPERTHYROIDISM. SOCIAL HISTORY GENERAL: TOBACCO USE ARE YOU A:NONSMOKER HIV / HEP-C SCREENING HIV TEST OFFERED TO PATIENT:YES DATE OFFERED:09/05/2017 TEST ACCEPTED:NO HEP-C TEST OFFERED TO PATIENT:YES DATE OFFERED:09/05/2017 REASON:PATIENT DECLINED TEST ACCEPTED:NO REASON:PATIENT DECLINED OTHERS AT HOME: SPOUSE. HOUSING: OWNS HOME. 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 LEARNING BARRIERS / SPECIAL NEEDS BARRIERS TO LEARNING?NO HEARING IMPAIRED?NO VISION IMPAIRED?YES COGNITIVELY IMPAIRED?NO :CORRECTIVE LENSES READING GLASSES READINESS TO LEARN?YES LEARNING PREFERENCES?NO LEARNING CAPABILITIES PRESENT?YES EMOTIONAL BARRIERS?NO SPECIAL DEVICES?NO OIL DIPPER NEEDED?NO PAIN CLINIC PFS, CLERGY, PUBLIC HEALTH REFERRALS PFS REFERRAL NEEDED?NO CLERGY REFERRAL NEEDED?NO PUBLIC HEALTH REFERRAL NEEDED?NO WAS THE PROVIDER NOTIFIED OF ANY PERTINENT INFO?NO HAS THE PATIENT BEEN EDUCATED REGARDING HIS/HER PLAN OF CARE?YES PLEASE DOCUMENT ANY ADDTIONAL DETAILS. CHANA LUMBAR FACET THERAPEUTIC INJ HAS THE PATIENT BEEN EDUCATED REGARDING PAIN, THE RISK FOR PAIN, THE IMPORTANCE OF EFFECTIVE PAIN MANAGEMENT, AND THE PAIN ASSESSMENT PROCESS?YES LATEX QUESTIONNAIRE LATEX ALLERGY : HAVE YOU EVER DEVELOPED ANY TYPE OF REACTION AFTER HANDLING LATEX PRODUCTS SUCH RUBBER GLOVES, CONDOMS, DIAPHRAGMS, BALLOONS, SOCKS, OR UNDERWEAR?NO LATEX ALLERGY : HAVE YOU EVER DEVELOPED ANY TYPE OF REACTION DURING OR AFTER DENTAL APPOINTMENT, VAGINAL/RECTAL EXAMINATION, SURGICAL PROCEDURE, OR ANY OTHER EXPOSURE?NO LATEX RISK : HAVE YOU EVER HAD ANY DIFFICULTY BREATHING OR HIVES AFTER EATING OR HANDLING ANY FRUITS, OR VEGETABLES; SUCH KIWI, BANANAS, STONE FRUITS, OR CHESTNUTSNO LATEX RISK : DO YOU HAVE A PREVIOUS PERSONAL HISTORY OF MORE THAN NINE SURGERIES, SPINA BIFIDA, OR REPEATED CATHERTIZATIONS? NO LATEX RISK : ARE YOU FREQUENTLY EXPOSED TO LATEX PRODUCTS IN YOUR OCCUPATION?NO DATE ASKED : 11/17/2018 CAFFEINE CAFFEINE USE?NO ADVANCE DIRECTIVE ADVANCE DIRECTIVE DISCUSSED WITH PATIENT:YES RHETT IS HCP ZOROASTRIANISM [id number] HOLINESS MARITAL STATUS: -1976. ALCOHOL SCREENING DID YOU HAVE A DRINK CONTAINING ALCOHOL IN THE PAST YEAR?NO POINTS0 INTERPRETATIONNEGATIVE OCCUPATION: UNEMPLOYED-DISABLED. SEXUAL HX HAD SEX IN THE LAST 12 MONTHS (VAGINAL, ORAL, OR ANAL)?YES WITHMEN ONLY LMP:HYSTERECTOMY HAVE YOU EVER HAD AN STD?NO REVIEWED WITH PT 11/17/18 0905 BV. HOSPITALIZATION/MAJOR DIAGNOSTIC PROCEDURE PANCREATITIS SUB DURAL HEMATOMA SURGERY RELATED REVIEW OF SYSTEMS REVIEWED BY: PROVIDER: MASHA AGUIRRE . CONSTITUTIONAL: ANY CHANGE IN YOUR MEDICAL CONDITION? NO . CHILLS NO . FEVER NO . INFECTION: DO YOU HAVE NEW INFECTIONS? NO . DO YOU HAVE HISTORY OF MRSA? NO . MUSCULOSKELETAL: ANY NEW PATTERNS OF PAIN OR NUMBNESS? YES, PT COMPLAINS OF INCREASED INTENSITY OVER THE PAST MONTH, STATES THE INCREASED RAINY WEATHER SEEMS TO AGGRAVATE HER PAIN . GASTROENTEROLOGY: ANY NEW CHANGE IN BOWEL CONTROL? NO . GENITOURINARY: ANY NEW CHANGE IN BLADDER CONTROL? NO . IS THERE A CHANCE YOU COULD BE ? NO . HEMATOLOGY/LYMPH: DO YOU TAKE ANY BLOOD THINNERS? (FOR EXAMPLE- COUMADIN, PLAVIX, AGGRENOX, PLATEL, PRADAXA, OR XARELTO) NO . WHEN WAS YOUR LAST DOSE? DATE: TIME: . NEUROLOGY: HAVE YOU FALLEN IN THE PAST 12 MONTHS? NO . ANY NEW EXTREMITY NUMBNESS OR WEAKNESS? NO . CARDIOLOGY: DO YOU HAVE A PACEMAKER OR DEFIBRILLATOR? NO . RESPIRATORY: HAVE YOU BEEN SICK IN THE PAST WEEK? NO . FEVER NO . FLU LIKE SYMPTOMS? NO . COUGH NO . INTEGUMENTARY: DO YOU HAVE ANY RASHES OR OPEN SORES? NO . ALLERGIC/IMMUNO: ARE YOU ALLERGIC TO IV DYE? NO . ANY NEW ALLERGIES? NO . PSYCHIATRIC: DO YOU HAVE THOUGHTS OF HURTING YOURSELF OR SOMEONE ELSE? NO . ARE YOU ABUSED, NEGLECTED, OR IN AN UNSAFE ENVIRONMENT? NO . ENDOCRINOLOGY: ARE YOU DIABETIC? NO . OTHER: DO YOU NEED ANY PRESCRIPTIONS? YES, HYDROCODONE 5-325 . IF YES, PLEASE LIST: ____ . ANY NEW PROBLEMS WITH YOUR MEDICATIONS? NO . WHEN DID YOU LAST EAT? ____ . WHEN DID YOU LAST DRINK? ____ . WHAT DID YOU LAST DRINK? ____ . NAME OF PERSON DRIVING YOU HOME? ____ . DO YOU HAVE ANY OTHER QUESTIONS OR CONCERNS NO . VITAL SIGNS WT 334.6 LBS, HT 66.5 IN, BMI 53.19 INDEX, BP 148/80 MM HG, HR 65 /MIN, RR 16 /MIN, TEMP 98 F, OXYGEN SAT % 95, REVIEWED BY: BRANDON. EXAMINATION GENERAL EXAMINATION: GENERAL APPEARANCE:AWAKE,ALERT ,PLEAASANT . PSYCHAFFECT NORMAL . LUNGS:LUNG STEWART ARE CLEAR TO AUSCULTATION BILATERALLY. GOOD MOVEMENT OF AIR . HEART:S1, S2 IN A REGULAR RATE AND RHYTHM. NO SIGNIFICANT MURMURS, RUBS OR GALLOPS NOTED . 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 (REF #[id number] ) BRINGS IN MEDICATIONS WHICH IS APPROPRIATE FOR WHAT WAS DISPENSED. RECENT URINE TOXICOLOGY REVIEWED. NO UNAUTHORIZED MEDICATIONS. NO ILLICIT SUBSTANCES AND PRESCRIBED MEDICATIONS WERE PRESENT. URINE TOX TODAY, RISKS AND BENEFITS OF NARCOTIC/OPIOD MEDICATIONS WERE REVIEWED WITH PATIENT - THIS INCLUDES BUT IS NOT LIMITED TO RISK OF DEPENDANCE/DEVELOPMENT OF ADDICTION, MOOD DISTURBANCE AND DEPRESSION, OSTEOPOROSIS, HORMONAL AND LABIDAL CHANGES, RESPIRATORY DEPRESSION AND . PATIENT IS ADVISED NOT TO DRIVE OR DRINK ALCOHOL WHILE ON THESE MEDICATIONS. PROCEDURE CODES FA211 ESTABILISHED PATIENT [facility] CHARGE DISPOSITION & COMMUNICATION FOLLOW UP 3 MONTHS ELECTRONICALLY SIGNED BY TIMOTHY CHA ON 12/05/2018 AT 01:06 PM EDT DISCLAIMER : THIS IS A VISIT SUMMARY EXTRACTED FROM THE [employer] CHART. IT IS NOT A COPY OF THE [employer] PROGRESS NOTE. DEIDRE
== END ==
LOC: M PAIN 08:45
PROVIDERS: ATTEND Nurse Practitioner Family
DX: M47.816 Spondylosis without myelopathy or radiculopathy, lumbar region (principal); Z79.891 Long term (current) use of opiate analgesic; M79.10 Myalgia, unspecified site; J45.909 Unspecified asthma, uncomplicated; G47.33 Obstructive sleep apnea (adult) (pediatric); E53.8 Deficiency of other specified B group vitamins; M79.7 Fibromyalgia; E03.9 Hypothyroidism, unspecified; I10 Essential (primary) hypertension; E66.01 Morbid (severe) obesity due to excess calories; Z68.43 Body mass index [BMI] 50.0-59.9, adult; Z79.899 Other long term (current) drug therapy; Z88.2 Allergy status to sulfonamides; Z88.8 Allergy status to other drugs, medicaments and biological substances; Z91.09 Other allergy status, other than to drugs and biological substances

== ENCOUNTER → 2018-11-20 | Outpatient (REF) | payer MEDICARE, BC | LOC: M SFHCPLAZ 09:30 | PROVIDERS: ATTEND Dermatology | DX: L57.0 Actinic keratosis (principal); D23.5 Other benign neoplasm of skin of trunk ==

== ENCOUNTER → 2018-11-29 | Outpatient (REF) | payer MEDICARE, BC ==
[2018-11-29 11:08] LABS: HEMATOCRIT 36.4 % (36.0-47.0); HEMOGLOBIN 11.8 g/dl (12.0-15.5); MEAN CORPUSCULAR HEMOGLOBIN 29.4 pg (27.0-33.0); MEAN CORPUSCULAR HGB CONC 32.4 g/dl (32.0-36.5); MEAN CORPUSCULAR VOLUME 90.8 fl (80.0-96.0); PLATELET COUNT, AUTOMATED 269 10^3/uL (150-450); RED BLOOD COUNT 4.01 10^6/uL (4.00-5.40); WHITE BLOOD COUNT 5.9 10^3/uL (4.0-10.0)
[2018-11-29 11:49] LABS: ALT/SGPT 17 U/L (12-78); BILIRUBIN,TOTAL 0.6 MG/DL (0.2-1.0); BLOOD UREA NITROGEN 8 MG/DL (7-18); CALCIUM LEVEL 9.1 MG/DL (8.8-10.2); CARBON DIOXIDE LEVEL 28 MEQ/L (21-32); CHLORIDE LEVEL 108 MEQ/L (98-107); CHOLESTEROL LEVEL 176 MG/DL (<200); CREATININE FOR GFR 0.64 MG/DL (0.55-1.30); GLOMERULAR FILTRATION RATE > 60.0 (>45); GLUCOSE, FASTING 79 MG/DL (70-100); HDL CHOLESTEROL 44 MG/DL (>40); LDL CHOLESTEROL 84 MG/DL (<100); NON-HDL-C 132 MG/DL; POTASSIUM SERUM 4.5 MEQ/L (3.5-5.1); SODIUM LEVEL 142 MEQ/L (136-145); TRIGLYCERIDES LEVEL 238 MG/DL (<150)
[2018-11-29 11:51] LABS: VITAMIN B12 LEVEL 438 PG/ML (247-911)
== END ==
LOC: M SFHCPLAZ 08:48
PROVIDERS: ATTEND Nurse Practitioner Adult Health
DX: I10 Essential (primary) hypertension (principal); E55.9 Vitamin D deficiency, unspecified; E53.8 Deficiency of other specified B group vitamins; E03.9 Hypothyroidism, unspecified; Z13.220 Encounter for screening for lipoid disorders
CPT/HCPCS: 36415; 80053; 80061; 82306; 82607; 84443; 85027; G0463

== ENCOUNTER 2018-12-26 08:57 | Outpatient (RCR) | payer MEDICARE, BC | END 2018-12-31 | LOC: M PT 08:57 | PROVIDERS: ATTEND Dermatology | DX: I87.8 Other specified disorders of veins (principal) ==

== ENCOUNTER → 2019-01-23 | Outpatient (CLI) | payer MEDICARE, BC ==
--- NOTE | 2019-01-23 12:10 | REP ---
PA and lateral chest: Comparison is 03/21/2018. There is chronic hyperinflation, unchanged. There is chronic mild interstitial coarsening, unchanged, compatible with chronic interstitial lung disease. There are no infiltrates or pleural effusions. There are no masses or nodules. The katya, mediastinum, skeletal structures are unremarkable. Impression: There are no acute cardiopulmonary findings. There is chronic hyperinflation and chronic mild interstitial coarsening. Electronically Signed by Kristofer Bautista MD 01/23/2019 12:03 P
== END ==
LOC: M LRY 11:29
PROVIDERS: ATTEND Physician Assistant
DX: R91.8 Other nonspecific abnormal finding of lung field (principal); R05 Cough; R06.02 Shortness of breath
CPT/HCPCS: 71046; G0463

== ENCOUNTER → 2019-03-23 | Outpatient (REF) | payer MEDICARE, BC | LOC: M SFHCPLAZ 11:27 | PROVIDERS: ATTEND Family Medicine | DX: M70.62 Trochanteric bursitis, left hip (principal) ==

== ENCOUNTER → 2019-06-05 | Outpatient (REF) | payer MEDICARE, BC ==
[2019-06-05 14:57] LABS: ALBUMIN 3.8 GM/DL (3.2-5.2); ALT/SGPT 21 U/L (12-78); BILIRUBIN,TOTAL 0.5 MG/DL (0.2-1.0); BLOOD UREA NITROGEN 12 MG/DL (7-18); CALCIUM LEVEL 9.3 MG/DL (8.8-10.2); CARBON DIOXIDE LEVEL 29 MEQ/L (21-32); CHLORIDE LEVEL 106 MEQ/L (98-107); CREATININE FOR GFR 0.67 MG/DL (0.55-1.30); GLOMERULAR FILTRATION RATE > 60.0 (>45); GLUCOSE, FASTING 99 MG/DL (70-100); POTASSIUM SERUM 4.2 MEQ/L (3.5-5.1); SODIUM LEVEL 141 MEQ/L (136-145); TOTAL PROTEIN 8.6 GM/DL (6.4-8.2)
[2019-06-05 15:04] LABS: VITAMIN B12 LEVEL 406 PG/ML (247-911)
[2019-06-06 16:09] LABS: SSA SJOGRENS A <0.2 AI (0.0-0.9); SSB SJOGRENS B <0.2 AI (0.0-0.9)
== END ==
LOC: M SFHCPLAZ 10:42
PROVIDERS: ATTEND Nurse Practitioner Adult Health
DX: I10 Essential (primary) hypertension (principal); E03.9 Hypothyroidism, unspecified; E55.9 Vitamin D deficiency, unspecified; E53.8 Deficiency of other specified B group vitamins; M79.7 Fibromyalgia
CPT/HCPCS: 36415; 80053; 82306; 82607; 84443; 86235; G0463

== ENCOUNTER 2019-07-25 07:59 | Emergency (ER) | payer MEDICARE, BC ==
[~2019-07-25] VITALS: Ht 170.2 cm; Wt 142.5 kg
[2019-07-25] MEDS ORDERED: FLUO20CA19 (08:09)
[2019-07-25] MEDS ORDERED: ALBU83IN (08:09)
[2019-07-25] MEDS ORDERED: FURO40TA2 (08:09)
[2019-07-25] MEDS ORDERED: FLUTISP (08:09)
[2019-07-25] MEDS ORDERED: PRED20TA (08:09)
[2019-07-25] MEDS ORDERED: BACL10TA2 (08:09)
[2019-07-25] MEDS ORDERED: TRAZ-252 (08:09)
[2019-07-25] MEDS ORDERED: PANT20TA2 (08:09)
[2019-07-25] MEDS ORDERED: IPRATROPIUM 0.5MG/ALBUTEROL 2.5MG INH SOL UD 3ML (DUONEB)(J7620) NEB ONE (08:45)
[2019-07-25] MEDS ORDERED: BENZONATATE 100 MG CAP PO ONE (08:45)
--- NOTE | 2019-07-25 09:16 | REP ---
PA and lateral chest: Comparison is a 01/23/2019. Lung millard are clear but again appear hyperinflated, unchanged. There is mild interstitial coarsening, unchanged. Cardiac is normal. The katya, mediastinum, skeletal structures are unremarkable. Impression: There are no acute cardiopulmonary changes. Chronic hyperinflation and chronic mild interstitial coarsening are again identified. Electronically Signed by Kristofer Bautista MD 07/25/2019 09:08 A
[2019-07-25] MEDS ORDERED: BENZ200C70 PO (09:52)
[2019-07-25] MEDS ORDERED: PRED20TA PO (09:52)
[2019-07-25 09:54] VITALS: BP 151/84
== END 2019-07-25 10:01 | disposition home or self-care (01) ==
LOC: M ED 07:59
DX: J45.901 Unspecified asthma with (acute) exacerbation (principal); Z79.899 Other long term (current) drug therapy; Z88.2 Allergy status to sulfonamides

== ENCOUNTER → 2019-08-17 | Outpatient (CLI) | payer MEDICARE, BC ==
[~2019-08-17] MED LIST changes: +ALBU83IN; +BACL10TA2; +BENZ200C70 PO; +FLUO20CA22; +FLUTISP; +FURO40TA2; +PANT20TA2; +PRED20TA; +PRED20TA PO; +TRAZ-252
--- NOTE | 2019-08-17 08:40 | REP ---
Clinical: Right upper quadrant pain and history of reflux disease. Technique: Real time holland scale ultrasound examination using curved array transducer. Findings: Liver and pancreas are normal in contour, size, echogenicity without focal hepatic or pancreatic lesion identified. Incidental small hepatic densities likely represent scattered calcified granulomata. The patient is status post cholecystectomy. No biliary ductal dilatation is appreciated and the common bile duct measures 4.5 mm diameter. Right kidney is normal in reniform shape without hydronephrosis and measures 15.1 x 5.9 x 4.7 cm. No ascites in the visualized right upper quadrant. Impression: Prior cholecystectomy. No acute pathology. Electronically Signed by Jeffy Mcfarland MD 08/17/2019 08:31 A
== END ==
LOC: M RAD 07:51
PROVIDERS: ATTEND Physician Assistant Surgical
DX: R10.11 Right upper quadrant pain (principal); K21.9 Gastro-esophageal reflux disease without esophagitis

== ENCOUNTER → 2019-08-27 | Outpatient (CLI) | payer MEDICARE, BC ==
[~2019-08-27] MED LIST changes: +TORS10TA3 PO
--- NOTE | 2019-08-27 15:56 | REP ---
Skeletal survey: Comparison is 06/06/2017. Calvarium: There are small lucencies in the calvarium, nonspecific, including granulations versus lytic lesions. Hyperostosis frontalis is unchanged. Cervical spine AP and lateral views: There are no lucent lesions. Degenerative disc disease is again identified at C5-6 and C6-7. Thoracic spine AP and lateral views: There are no lucent lesions. Degenerative disc disease throughout the thoracic spine is unchanged. The pedicles are unremarkable. There is no interval change. Lumbar spine AP and lateral views: There are no lytic lesions. There is scoliosis convex left, unchanged. There is degenerative disc disease at L1-2 L2-3, unchanged. AP pelvis: There are no lytic lesions. Mineralization is normal. The sacroiliac articulations and hip articulations are unremarkable. No interval change. Bilateral humeri: There are no lytic lesions. Mineralization is normal. No calcifications. No interval change. Bilateral femurs Mineralization is normal. There are no lytic lesions. There are no calcifications. There is a left knee arthroplasty, unchanged. The Electronically Signed by Kristofer Bautista MD 08/27/2019 02:50 P
== END ==
LOC: M LAB 12:53 → M RAD 12:53
PROVIDERS: ATTEND Internal Medicine Hematology & Oncology
DX: C90.00 Multiple myeloma not having achieved remission (principal)

== ENCOUNTER → 2019-09-03 | Outpatient (CLI) | payer MEDICARE, BC ==
--- NOTE | 2019-09-03 14:59 | REP ---
PET/CT: HISTORY: Multiple myeloma COMPARISONS: Comparison PET/CT study May 02, 2018. TECHNIQUE: 52 minutes following the intravenous injection of a 8.46 mCi dose of F-18 FDG, three-dimensional PET scintigraphy is acquired from the skull vertex to the toes. Triplanar noncontrast CT scanning is acquired through the same anatomic range for attenuation correction, and image registration with scan parameters optimized to minimize radiation exposure to the patient. PET scintigraphy and CT datasets were fused and displayed on a workstation with multiplanar and projection display capability. PET/CT FINDINGS: Head and neck soft tissues are unremarkable. There is no abnormal pulmonary parenchymal hypermetabolic uptake. No abnormal hilar or mediastinal uptake is seen. No abnormal intra-abdominal or pelvic hypermetabolic uptake is appreciated. There is mildly prominent uptake at the site of a ununited 7th cervical spinous process. This is compatible with chronic inflammation prior fracture or developmental nonunion. No other abnormal skeletal hypermetabolic uptake is appreciated. At the medial aspect of the right knee in the suprapatellar bursa, there is a focus of hypermetabolic uptake with maximum standard uptake value 15.02. There is no underlying bony erosive change and the lesion appears to be in the synovium. There is lesser uptake in the surrounding suprapatellar bursa in the right knee. There is a focus of increased uptake at this location on the previous PET/CT visible in retrospect in 2018 and it is essentially unchanged, maximum SUV value on the prior scan of 12.3. There is mildly increased uptake focally in each Achilles tendon consistent with chronic Achilles tendinosis tendonitis change. IMPRESSION: No abnormal skeletal focus of increased uptake. There is a focus of increased uptake in the suprapatellar bursa soft tissues of the right knee consistent with chronic inflammation. Electronically Signed by Ryley Foley MD 09/03/2019 08:06 P
== END ==
LOC: M PLARAD 09:01
PROVIDERS: ATTEND Internal Medicine Hematology & Oncology
DX: C90.00 Multiple myeloma not having achieved remission (principal); D48.0 Neoplasm of uncertain behavior of bone and articular cartilage
CPT/HCPCS: 78815; A9552

== ENCOUNTER → 2019-12-10 | Outpatient (CLI) | payer MEDICARE, BC | LOC: M LABSMTC 13:14 | PROVIDERS: ATTEND Family Medicine | DX: Z03.818 Encounter for observation for suspected exposure to other biological agents ruled out (principal); Z11.59 Encounter for screening for other viral diseases | CPT/HCPCS: C9803; U0003 ==

== ENCOUNTER → 2019-12-14 | Outpatient (CLI) | payer MEDICARE, BC ==
[2019-12-14 17:17] LABS: BLOOD UREA NITROGEN 12 MG/DL (7-18); GLOMERULAR FILTRATION RATE > 60.0 (>45)
== END ==
LOC: M LAB 14:59
PROVIDERS: ATTEND Nurse Practitioner Family
DX: R10.9 Unspecified abdominal pain (principal)

== ENCOUNTER → 2019-12-15 | Outpatient (REF) | payer MEDICARE, BC | LOC: M LAB 09:30 | PROVIDERS: ATTEND Nurse Practitioner Family | DX: R10.11 Right upper quadrant pain (principal); R68.81 Early satiety; R19.4 Change in bowel habit; K31.89 Other diseases of stomach and duodenum; Z86.010 Personal history of colon polyps ==

== ENCOUNTER → 2020-03-31 | Outpatient (CLI) | payer MEDICARE, BC ==
[~2020-03-31] MED LIST changes: -PANT20TA2; +PANT20TA6
== END ==
LOC: M ONCM 09:22
PROVIDERS: ATTEND Internal Medicine
DX: C90.00 Multiple myeloma not having achieved remission (principal)

== ENCOUNTER → 2020-03-31 | Outpatient (REF) | payer MEDICARE, BC ==
[2020-03-31 12:50] LABS: BASO % 0.7 % (0.0-1.0); EOS # 0.1 10^3/uL (0.0-0.5); EOS % 2.7 % (0.0-3.0); HEMOGLOBIN 11.1 g/dl (12.0-15.5); LYMPH # 1.4 10^3/uL (1.5-5.0); LYMPH % 31.9 % (24.0-44.0); MEAN CORPUSCULAR HEMOGLOBIN 29.4 pg (27.0-33.0); MEAN CORPUSCULAR HGB CONC 31.7 g/dl (32.0-36.5); MEAN CORPUSCULAR VOLUME 92.8 fl (80.0-96.0); MONO # 0.3 10^3/uL (0.0-0.8); MONO % 6.2 % (0.0-5.0); NEUTROPHILS # 2.6 10^3/uL (1.5-8.5); NEUTROPHILS % 58.1 % (36.0-66.0); PLATELET COUNT, AUTOMATED 239 10^3/uL (150-450); RED BLOOD COUNT 3.77 10^6/uL (4.00-5.40); WHITE BLOOD COUNT 4.5 10^3/uL (4.0-10.0)
[2020-03-31 13:00] LABS: ALBUMIN 3.5 GM/DL (3.2-5.2); ALT/SGPT 22 U/L (12-78); BILIRUBIN,TOTAL 0.4 MG/DL (0.2-1.0); BLOOD UREA NITROGEN 8 MG/DL (7-18); CALCIUM LEVEL 8.7 MG/DL (8.8-10.2); CARBON DIOXIDE LEVEL 25 MEQ/L (21-32); CHLORIDE LEVEL 111 MEQ/L (98-107); CREATININE FOR GFR 0.66 MG/DL (0.55-1.30); GLOMERULAR FILTRATION RATE > 60.0 (>45); GLUCOSE, FASTING 114 MG/DL (70-100); IMMUNOGLOBULIN A 87.9 MG/DL (70-400); IMMUNOGLOBULIN G 2060 MG/DL (681-1648); IMMUNOGLOBULIN M 34.7 MG/DL (40-230); LDH LACTATE DEHYDROGENASE 169 U/L (84-246); POTASSIUM SERUM 3.7 MEQ/L (3.5-5.1); SODIUM LEVEL 142 MEQ/L (136-145); URIC ACID 3.4 MG/DL (2.6-6.0)
[2020-04-01 14:27] LABS: IMMUNOTYPING SERUM IGG ABNORMAL (NORMAL); IMMUNOTYPING SERUM KAPPA ABNORMAL (NORMAL)
[2020-04-01 14:48] LABS: ALBUMIN 4.14 GM/DL (3.29-5.55); ALBUMIN % 51.8 % (55.8-66.1); ALPHA-1-GLOBULIN % 4.5 % (2.9-4.9); ALPHA-1-GLOBULINS 0.36 GM/DL (0.17-0.41); BETA-1-GLOBULINS 0.46 GM/DL (0.28-0.60); BETA-1-GLOBULINS % 5.7 % (4.7-7.2); BETA-2-GLOBULINS 0.33 GM/DL (0.19-0.55); BETA-2-GLOBULINS % 4.1 % (3.2-6.5); GAMMA GLOBULIN % 23.9 % (11.1-18.8); GAMMA GLOBULINS 1.91 GM/DL (0.65-1.58)
[2020-04-01 14:49] LABS: SPEP INTERPRETATION SEE COMM
[2020-04-01 18:07] LABS: FREE KAPPA LIGHT CHAINS SERUM 27.5 mg/L (3.3-19.4); FREE LAMBDA LIGHT CHAINS SERUM 9.9 mg/L (5.7-26.3); KAPPA/LAMBDA RATIO SERUM 2.78 (0.26-1.65)
== END ==
LOC: M LAB REF 10:41
PROVIDERS: ATTEND Internal Medicine
DX: C90.00 Multiple myeloma not having achieved remission (principal)

== ENCOUNTER → 2020-05-28 | Outpatient (REF) | payer MEDICARE, BC | LOC: M LAB REF 14:00 | PROVIDERS: ATTEND Dermatology | DX: D23.5 Other benign neoplasm of skin of trunk (principal) ==

== ENCOUNTER → 2020-06-02 | Outpatient (REF) | payer MEDICARE, BC ==
[~2020-06-02] MED LIST changes: +CALTTAB6 PO; +DICY10CA13 PO; +ESCI5SOL3 PO; +OMEP10CASR PO; +THERTAB52 PO; +VITA-259 PO; +VITATAB74 PO
== END ==
LOC: M LAB REF 16:41
PROVIDERS: ATTEND Dermatology
DX: L72.11 Pilar cyst (principal)

== ENCOUNTER → 2020-07-17 | Outpatient (REF) | payer MEDICARE, BC ==
[~2020-07-17] MED LIST changes: -CALTTAB6 PO; -DICY10CA13 PO; -ESCI5SOL3 PO; -OMEP10CASR PO; -THERTAB52 PO; -VITA-259 PO; -VITATAB74 PO
== END ==
LOC: M LAB REF 17:46
PROVIDERS: ATTEND Physician Assistant Surgical
DX: R19.7 Diarrhea, unspecified (principal)

== ENCOUNTER → 2020-09-01 | Outpatient (REF) | payer MEDICARE, BC ==
[~2020-09-01] MED LIST changes: +CALTTAB6 PO; +DICY10CA13 PO; +ESCI5SOL3 PO; +OMEP10CASR PO; +THERTAB52 PO; +VITA-259 PO; +VITATAB74 PO
[2020-09-01 11:20] LABS: FREE T4 0.89 NG/DL (0.76-1.46); THYROID STIMULATING HORMONE 2.49 uIU/ML (0.358-3.740)
== END ==
LOC: M SFHCPLAZ 08:57
PROVIDERS: ATTEND Nurse Practitioner Adult Health
DX: E03.9 Hypothyroidism, unspecified (principal)

== ENCOUNTER → 2020-09-24 | Outpatient (CLI) | payer MEDICARE, BC ==
--- NOTE | 2020-09-24 09:33 | REP ---
INDICATION: RIGHT UPPER QUADRANT PAIN. COMPARISON: Right upper quadrant abdominal ultrasound dated 08/17/2019. TECHNIQUE: Multiple sonographic images of the abdominal right upper quadrant. FINDINGS: The patient has a cholecystectomy. There is no intrahepatic or extrahepatic biliary duct dilatation. The common biliary duct measures 4.9 mm in diameter. This is upper normal. The hepatic parenchyma is hyperechoic compatible with hepato steatosis. There are no hepatic masses or cysts. The visualized areas of the pancreatic head are unremarkable. The body and tail are obscured by bowel gas. The right kidney measures 15.6 x 6.1 x 4.6 cm and is normal size. There is no right renal calculus, hydronephrosis, solid mass or cystic mass. There is no abdominal right upper quadrant free fluid. IMPRESSION: Cholecystectomy. No biliary duct dilatation. Hepato steatosis. Pancreas is partially obscured by bowel gas. <Electronically signed by Kristofer Bautista > 09/24/20 0984
== END ==
LOC: M RAD 08:32
PROVIDERS: ATTEND Physician Assistant Surgical
DX: R10.11 Right upper quadrant pain (principal); R19.4 Change in bowel habit

== ENCOUNTER → 2021-01-22 | Outpatient (REF) | payer MEDICARE, BC ==
[2021-01-22 17:10] LABS: C REACTIVE PROTEIN QUANTITATIV 0.79 MG/DL (0.00-0.30)
== END ==
LOC: M SFHCRHEU 14:43
PROVIDERS: ATTEND Internal Medicine
DX: M25.40 Effusion, unspecified joint (principal)
CPT/HCPCS: 85652; 86140; 86160; 86162; G0463

== ENCOUNTER → 2021-01-23 | Outpatient (CLI) | payer MEDICARE, BC ==
--- NOTE | 2021-01-23 13:42 | REP ---
INDICATION: EFFUSION, UNSPECIFIED JOINT. COMPARISON: None. TECHNIQUE: Eight views. Bilateral wrist series. FINDINGS: Four views of each wrist demonstrate overall normal mineralization. There is mild osteoarthritic spurring at the 1st carpometacarpal and navicular 0 multangular articulation on the left. There is subcortical cyst formation in the hamate on the left. There is also osteoarthritis at the 1st carpometacarpal articulation on the right. Subcortical cyst formation is seen on the right. No erosive changes are noted on either side. IMPRESSION: Bilateral osteoarthritis as noted above. <Electronically signed by Armando Foley > 01/23/21 [id number]
--- NOTE | 2021-01-23 14:46 | REP ---
INDICATION: EFFUSION, UNSPECIFIED JOINT. Joint effusion of multiple sites. COMPARISON: None. TECHNIQUE: Eight views, bilateral hand series. FINDINGS: Four views of each hand are presented. Overall mineralization pattern is normal. There is evidence of arthropathy involving the 1st carpometacarpal articulation bilaterally. There are subcortical cysts or remodeling changes at the 1st carpometacarpal articulations. The greater multangular is not visible on either side suggesting previous excision. This is visible on today's wrist radiographs as well. No acute erosive changes are seen. The distal navicula and the proximal 1st metacarpal cortical margins are intact. There is mild narrowing of the 2nd metacarpal carpal articulations bilaterally. Osteoarthritic spurring is seen at the IP joint of the thumb on the right and to a lesser extent on the left. There is subcortical cyst formation in the distal and of the 2nd metacarpal on the left. IMPRESSION: Arthropathy involving the 1st carpometacarpal articulation. The greater multangular bone is surgically absent bilaterally. Question prior surgery versus erosive arthropathy. Osteoarthritic changes as noted above. <Electronically signed by Armando Foley > 01/23/21 [id number]
--- NOTE | 2021-01-23 14:48 | REP ---
INDICATION: EFFUSION, UNSPECIFIED JOINT. COMPARISON: None. TECHNIQUE: Bilateral ankle series: 8 views. FINDINGS: Overall mineralization pattern is normal. There arm moderate-sized Achilles and plantar calcaneal spurs bilaterally. Left larger than right. There is calcification in a swollen portion of the mid Achilles tendon on the left consistent with chronic calcific Achilles tendinosis. There are similar calcifications along the anterior border of the Achilles tendon on the right. On the right side there is dystrophic calcification along the plantar fascia at the hindfoot level. Ankle mortise is intact bilaterally. No tibiotalar spurring is seen. Midfoot articulations are unremarkable. IMPRESSION: Bilateral calcific Achilles tendinosis. Bilateral heel spurs. Dystrophic calcification in the plantar fascia on the right and possibly the left as well. <Electronically signed by Armando Foley > 01/23/21 2051
--- NOTE | 2021-01-23 14:50 | REP ---
INDICATION: EFFUSION, UNSPECIFIED JOINT. COMPARISON: None. TECHNIQUE: Bilateral foot series: 8 views. FINDINGS: Four views of each foot demonstrate overall normal mineralization. There are large Achilles and plantar calcaneal spurs bilaterally. There is chronic calcific tendinosis in the Achilles tendon bilaterally with an area of swelling in the left Achilles tendon as described in the ankle report. There is plantar fascial calcification on the right. There is mild spurring at the 1st MTP joint bilaterally. No acute bony erosive changes seen. IMPRESSION: Heel spurs in dystrophic Achilles tendinosis and fibrosis changes as above. <Electronically signed by Armando Foley > 01/23/21 [id number]
== END ==
LOC: M RAD 12:10
PROVIDERS: ATTEND Internal Medicine
DX: M25.40 Effusion, unspecified joint (principal); M77.31 Calcaneal spur, right foot; M77.32 Calcaneal spur, left foot; M76.61 Achilles tendinitis, right leg; M76.62 Achilles tendinitis, left leg; M19.031 Primary osteoarthritis, right wrist; M19.032 Primary osteoarthritis, left wrist

== ENCOUNTER → 2021-02-12 | Outpatient (REF) | payer MEDICARE, BC | LOC: M LAB REF 12:36 | PROVIDERS: ATTEND Otolaryngology | DX: R89.8 Other abnormal findings in specimens from other organs, systems and tissues (principal); M35.00 Sjogren syndrome, unspecified ==

== ENCOUNTER → 2021-03-12 | Outpatient (CLI) | payer MEDICARE, BC ==
[2021-03-12 19:02] LABS: CALCIUM LEVEL 9.1 MG/DL (8.8-10.2); MAGNESIUM LEVEL 2.4 MG/DL (1.8-2.4)
[2021-03-12 19:13] LABS: PTH INTACT 82.4 PG/ML (18.5-88.0)
== END ==
LOC: M LAB 17:38
PROVIDERS: ATTEND Internal Medicine
DX: M65.20 Calcific tendinitis, unspecified site (principal)
CPT/HCPCS: 36415; 82310; 83540; 83735; 83970; G0463

== ENCOUNTER → 2021-06-29 | Outpatient (CLI) | payer MEDICARE, BC ==
--- NOTE | 2021-07-02 16:27 | REP ---
INDICATION: Multiple myeloma COMPARISON: PET-CT from skull base to mid thigh pain 12/31/2020 from an outside institution. That examination showed no abnormal hypermetabolic activity. TECHNIQUE: After the intravenous administration of 9.10 mCi of FDG 18 whole-body PET-CT was obtained. NONCONTRAST HELICAL CT IMAGING WAS PERFORMED OVER THE SAME RANGE WITHOUT BREATH HOLD FOR ATTENUATION CORRECTION OF PET IMAGES AND ANATOMIC CORRELATION, BUT NOT FOR PRIMARY INTERPRETATION IT IS NOT OF STANDARD DIAGNOSTIC QUALITY. FINDINGS: There is no abnormal hypermetabolic activity within the neck, chest, abdomen, or pelvis. There is, however, multifocal bilateral hypermetabolic foci seen throughout the imaged axial and appendicular skeleton with SUV values ranging from 2.5-3.5 in the appendicular skeleton and 3.5-4.86 in the axial skeleton as maximal values. These areas are too numerous to count or individually assess. They represent a change compared to the prior exam. IMPRESSION: There is evidence of abnormal skeletal hypermetabolism as described above. It is unlikely that this all represents chemo reactive marrow changes. I have been given no history of recent chemotherapy. This exam needs to be correlated clinically with appropriate follow-up. A skeletal survey should be obtained if clinically relevant. <Electronically signed by Toby Milian > 07/02/21 [id number]
== END ==
LOC: M PLARAD 14:05
PROVIDERS: ATTEND Internal Medicine Hematology
DX: C90.00 Multiple myeloma not having achieved remission (principal)
CPT/HCPCS: 78816; A9552

== ENCOUNTER → 2021-07-14 | Outpatient (CLI) | payer MEDICARE, BC ==
[~2021-07-14] MED LIST changes: +ALPR2TAB3 PO; +LINZ72CA
== END ==
LOC: M RAD 10:42
PROVIDERS: ATTEND Specialist
DX: C90.00 Multiple myeloma not having achieved remission (principal); M51.36 Other intervertebral disc degeneration, lumbar region; M16.0 Bilateral primary osteoarthritis of hip

== ENCOUNTER → 2021-08-18 | Outpatient (REF) | payer MEDICARE, BC | LOC: M WUC 09:32 | PROVIDERS: ATTEND Physician Assistant | DX: R30.0 Dysuria (principal) ==

== ENCOUNTER → 2021-08-25 | Outpatient (CLI) | payer MEDICARE, BC | LOC: M LAB 08:01 → M PLALAB 08:01 | PROVIDERS: ATTEND Nurse Practitioner Adult Health | DX: E03.9 Hypothyroidism, unspecified (principal); R30.0 Dysuria ==

== ENCOUNTER → 2021-09-04 | Outpatient (REF) | payer MEDICARE, BC ==
[2021-09-04 16:59] LABS: APPEARANCE, URINE CLEAR (CLEAR); BACTERIA, URINE AUTO NEGATIVE (NEGATIVE); BILIRUBIN, URINE AUTO NEGATIVE (NEGATIVE); BLOOD, URINE BLOOD NEGATIVE (NEGATIVE); COLOR, URINE STRAW (YELLOW); GLUCOSE, URINE (UA) AUTO NEGATIVE (NEGATIVE); KETONE, URINE AUTO NEGATIVE (NEGATIVE); LEUKOCYTE ESTERASE, URINE AUTO NEGATIVE (NEGATIVE); NITRITE, URINE AUTO NEGATIVE (NEGATIVE); PROTEIN, URINE AUTO NEGATIVE (NEGATIVE); RBC, URINE AUTO 0 /HPF (0-3); SPECIFIC GRAVITY URINE AUTO 1.008 (1.002-1.035); SQUAMOUS EPITHELIAL CELL UR AU 0 /HPF (0-6); UROBILINOGEN, URINE AUTO 0.2 mg/dL (0.0-2.0); WBC, URINE AUTO 1 /HPF (0-3)
== END ==
LOC: M LAB REF 16:33
PROVIDERS: ATTEND Obstetrics & Gynecology
DX: R39.89 Other symptoms and signs involving the genitourinary system (principal)

== ENCOUNTER → 2021-09-16 | Outpatient (CLI) | payer MEDICARE, BC ==
[~2021-09-16] MED LIST changes: +ALBU2.5V10; -ALBU83IN
== END ==
LOC: M PLAIMG 12:26
PROVIDERS: ATTEND Physician Assistant
DX: M25.561 Pain in right knee (principal)

== ENCOUNTER → 2021-09-29 | Outpatient (CLI) | payer MEDICARE, BC ==
[~2021-09-29] MED LIST changes: -ALBU2.5V10; +ALBU83IN; +ISOVUE-300 61% 50ML VIAL As Ordered ONE; +LIDOCAINE 1% MDV 20ML VIAL As Ordered ONE; +methylPREDNISolone SUSP 40MG/ML 1ML VIAL (DEPO MEDROL) As Ordered ONE
== END ==
LOC: M RADPRO 09:54
PROVIDERS: ATTEND Physician Assistant
DX: M75.41 Impingement syndrome of right shoulder (principal)
CPT/HCPCS: 20610; 77002; J1030; Q9967

== ENCOUNTER → 2021-10-30 | Outpatient (CLI) | payer MEDICARE, BC ==
[~2021-10-30] MED LIST changes: -ISOVUE-300 61% 50ML VIAL As Ordered ONE; -LIDOCAINE 1% MDV 20ML VIAL As Ordered ONE; -methylPREDNISolone SUSP 40MG/ML 1ML VIAL (DEPO MEDROL) As Ordered ONE
[2021-10-30 10:07] LABS: CHOLESTEROL RISK RATIO 4.062 (<5)
[2021-10-30 10:11] LABS: TOTAL 25(OH) VITAMIN D 32.3 NG/ML (30.0-100.0)
== END ==
LOC: M LAB 09:03
PROVIDERS: ATTEND Nurse Practitioner Adult Health
DX: Z00.00 Encounter for general adult medical examination without abnormal findings (principal); E55.9 Vitamin D deficiency, unspecified; Z13.220 Encounter for screening for lipoid disorders; Z79.899 Other long term (current) drug therapy

== ENCOUNTER → 2021-12-02 | Outpatient (CLI) | payer MEDICARE, BC ==
[~2021-12-02] MED LIST changes: +ALBU2.5V10; -ALBU83IN
== END ==
LOC: M SOG 09:40
PROVIDERS: ATTEND Orthopaedic Surgery
DX: M25.511 Pain in right shoulder (principal); M25.78 Osteophyte, vertebrae

== ENCOUNTER → 2021-12-09 | Outpatient (CLI) | payer MEDICARE, BC | LOC: M WHC 08:48 | PROVIDERS: ATTEND Nurse Practitioner Adult Health | DX: Z12.31 Encounter for screening mammogram for malignant neoplasm of breast (principal); Z80.9 Family history of malignant neoplasm, unspecified ==

== ENCOUNTER → 2022-02-08 | Outpatient (REF) | payer MEDICARE, BC ==
[2022-02-08 17:30] LABS: BASO % 0.6 % (0.0-1.0); EOS # 0.2 10^3/uL (0.0-0.5); EOS % 2.8 % (0.0-3.0); HEMOGLOBIN 11.9 g/dl (12.0-15.5); LYMPH # 2.5 10^3/uL (1.5-5.0); LYMPH % 39.2 % (24.0-44.0); MEAN CORPUSCULAR HGB CONC 31.3 g/dl (32.0-36.5); MEAN CORPUSCULAR VOLUME 92.7 fl (80.0-96.0); MONO # 0.4 10^3/uL (0.0-0.8); MONO % 5.6 % (2.0-8.0); NEUTROPHILS # 3.3 10^3/uL (1.5-8.5); NEUTROPHILS % 51.5 % (36.0-66.0); PLATELET COUNT, AUTOMATED 298 10^3/uL (150-450); WHITE BLOOD COUNT 6.5 10^3/uL (4.0-10.0)
[2022-02-08 19:05] LABS: APPEARANCE, URINE CLEAR (CLEAR); BACTERIA, URINE AUTO NEGATIVE (NEGATIVE); BILIRUBIN, URINE AUTO NEGATIVE (NEGATIVE); BLOOD, URINE BLOOD NEGATIVE (NEGATIVE); COLOR, URINE COLORLESS (YELLOW); GLUCOSE, URINE (UA) AUTO NEGATIVE (NEGATIVE); KETONE, URINE AUTO NEGATIVE (NEGATIVE); LEUKOCYTE ESTERASE, URINE AUTO NEGATIVE (NEGATIVE); MUCUS, URINE SMALL (NEGATIVE); NITRITE, URINE AUTO NEGATIVE (NEGATIVE); PROTEIN, URINE AUTO NEGATIVE (NEGATIVE); RBC, URINE AUTO 0 /HPF (0-3); SPECIFIC GRAVITY URINE AUTO 1.005 (1.002-1.035); SQUAMOUS EPITHELIAL CELL UR AU 0 /HPF (0-6); UROBILINOGEN, URINE AUTO 0.2 mg/dL (0.0-2.0); WBC, URINE AUTO 0 /HPF (0-3)
[2022-02-08 19:47] LABS: ERYTHROCYTE SEDIMENTATION RATE 54 mm/hr (0-30)
[2022-02-08 21:19] LABS: ALBUMIN 3.9 GM/DL (3.2-5.2); ALT/SGPT 38 U/L (12-78); BILIRUBIN,DIRECT 0.1 MG/DL (0.0-0.2); BILIRUBIN,TOTAL 0.3 MG/DL (0.2-1.0); BLOOD UREA NITROGEN 14 MG/DL (7-18); C REACTIVE PROTEIN QUANTITATIV 0.46 MG/DL (0.00-0.30); CALCIUM LEVEL 9.1 MG/DL (8.8-10.2); CARBON DIOXIDE LEVEL 27 MEQ/L (21-32); CHLORIDE LEVEL 105 MEQ/L (98-107); CREATININE FOR GFR 0.81 MG/DL (0.55-1.30); GLOMERULAR FILTRATION RATE > 60.0 (>45); GLUCOSE, FASTING 104 MG/DL (70-100); POTASSIUM SERUM 3.9 MEQ/L (3.5-5.1); SODIUM LEVEL 140 MEQ/L (136-145); TOTAL PROTEIN 8.9 GM/DL (6.4-8.2)
[2022-02-08 23:15] LABS: COMPLEMENT C3 159 MG/DL (90-180); COMPLEMENT C4 18 MG/DL (10-40)
[2022-02-08 23:36] LABS: CREATININE,RANDOM URINE 15.1 MG/DL; TOTAL PROTEIN,RANDOM URINE < 5.0 MG/DL (0.0-12.0)
== END ==
LOC: M SFHCRHEU 13:08
PROVIDERS: ATTEND Internal Medicine
DX: M06.4 Inflammatory polyarthropathy (principal)

== ENCOUNTER → 2022-03-25 | Outpatient (CLI) | payer MEDICARE, BC | LOC: M PLAIMG 08:13 | PROVIDERS: ATTEND Nurse Practitioner Adult Health | DX: M54.2 Cervicalgia (principal); M47.812 Spondylosis without myelopathy or radiculopathy, cervical region ==

== ENCOUNTER → 2022-04-09 | Outpatient (CLI) | payer MEDICARE, BC ==
[2022-04-09 12:32] LABS: HEMATOCRIT 36.2 % (36.0-47.0); HEMOGLOBIN 11.5 g/dl (12.0-15.5); MEAN CORPUSCULAR HEMOGLOBIN 29.9 pg (27.0-33.0); MEAN CORPUSCULAR HGB CONC 31.8 g/dl (32.0-36.5); PLATELET COUNT, AUTOMATED 260 10^3/uL (150-450); RED BLOOD COUNT 3.85 10^6/uL (4.00-5.40); WHITE BLOOD COUNT 5.9 10^3/uL (4.0-10.0)
[2022-04-09 13:16] LABS: ALT/SGPT 29 U/L (12-78); AMYLASE 30 U/L (25-115); BILIRUBIN,TOTAL 0.6 MG/DL (0.2-1.0); BLOOD UREA NITROGEN 13 MG/DL (7-18); CALCIUM LEVEL 9.4 MG/DL (8.8-10.2); CARBON DIOXIDE LEVEL 27 MEQ/L (21-32); CHLORIDE LEVEL 107 MEQ/L (98-107); CREATININE FOR GFR 0.76 MG/DL (0.55-1.30); GLOMERULAR FILTRATION RATE > 60.0 (>45); GLUCOSE, FASTING 90 MG/DL (70-100); LIPASE 118 U/L (73-393); POTASSIUM SERUM 4.3 MEQ/L (3.5-5.1); SODIUM LEVEL 139 MEQ/L (136-145); TOTAL PROTEIN 9.1 GM/DL (6.4-8.2)
== END ==
LOC: M LAB 11:50
PROVIDERS: ATTEND Registered Nurse
DX: R10.9 Unspecified abdominal pain (principal); R19.7 Diarrhea, unspecified; R11.2 Nausea with vomiting, unspecified; K21.9 Gastro-esophageal reflux disease without esophagitis; Z87.19 Personal history of other diseases of the digestive system

== ENCOUNTER → 2022-04-12 | Outpatient (REF) | payer MEDICARE, BC | LOC: M SFHCWAGY 13:31 | PROVIDERS: ATTEND Nurse Practitioner Family | DX: Z12.4 Encounter for screening for malignant neoplasm of cervix (principal) ==

== ENCOUNTER → 2022-06-16 | Outpatient (REF) | payer MEDICARE, BC ==
[~2022-06-16] MED LIST changes: -PAXI10TA12 PO; +PAXI10TA13 PO
== END ==
LOC: M SFHCWAGY 17:35
PROVIDERS: ATTEND Nurse Practitioner Family
DX: N39.0 Urinary tract infection, site not specified (principal)

== ENCOUNTER → 2022-08-11 | Outpatient (CLI) | payer MEDICARE, BC | LOC: M PLAIMG 09:00 | PROVIDERS: ATTEND Otolaryngology | DX: H90.12 Conductive hearing loss, unilateral, left ear, with unrestricted hearing on the contralateral side (principal) ==

== ENCOUNTER → 2022-09-06 | Outpatient (CLI) | payer MEDICARE, BC | LOC: M PLARAD 11:39 | PROVIDERS: ATTEND Nurse Practitioner | DX: C90.00 Multiple myeloma not having achieved remission (principal) | CPT/HCPCS: 78816; A9552 ==

== ENCOUNTER → 2022-09-13 | Outpatient (REF) | payer MEDICARE, BC ==
[2022-09-13 11:43] LABS: FREE T4 0.97 NG/DL (0.89-1.76); THYROID STIMULATING HORMONE 2.414 uIU/ML (0.55-4.78); TOTAL T3 121.4 NG/DL (60.0-181.0)
== END ==
LOC: M LAB REF 10:38
PROVIDERS: ATTEND Internal Medicine Endocrinology, Diabetes & Metabolism
DX: E03.9 Hypothyroidism, unspecified (principal)

== ENCOUNTER 2022-10-19 11:45 | Inpatient (IN) | payer MEDICARE, BC ==
[~2022-10-19] VITALS: Ht 170.2 cm; Wt 160.0 kg
[2022-10-19] MEDS: traZODone 50 MG TAB PO SCH (00:35)
[~2022-10-19 11:45] MED LIST changes: -ALBU2.5V10; +ALBU2.5V10 NEB; -BACL10TA2; +BACL10TA2 PO; +FLUT50SP17; -FLUTISP; -TRAZ-252; +TRAZ-252 PO
[2022-10-19] MEDS ORDERED: methylPREDNISolone 125MG 2ML VIAL IV ONE (12:30)
[2022-10-19] MEDS: IPRATROPIUM 0.5MG/ALBUTEROL 2.5MG INH SOL UD 3ML (DUONEB) NEB PRN ×3 (13:04→13:57)
[2022-10-19 13:25] LABS: BASO % 0.5 % (0.0-1.0); EOS # 0.1 10^3/uL (0.0-0.5); EOS % 2.1 % (0.0-3.0); HEMATOCRIT 34.9 % (36.0-47.0); HEMOGLOBIN 11.1 g/dl (12.0-15.5); LYMPH # 2.2 10^3/uL (1.5-5.0); LYMPH % 37.2 % (24.0-44.0); MEAN CORPUSCULAR HEMOGLOBIN 29.8 pg (27.0-33.0); MEAN CORPUSCULAR HGB CONC 31.8 g/dl (32.0-36.5); MEAN CORPUSCULAR VOLUME 93.6 fl (80.0-96.0); MONO # 0.5 10^3/uL (0.0-0.8); MONO % 8.4 % (2.0-8.0); NEUTROPHILS % 51.5 % (36.0-66.0); PLATELET COUNT, AUTOMATED 235 10^3/uL (150-450); RED BLOOD COUNT 3.73 10^6/uL (4.00-5.40); WHITE BLOOD COUNT 5.8 10^3/uL (4.0-10.0)
[2022-10-19] MEDS ORDERED: BENZONATATE 100MG CAPSULE PO ONE (14:15)
[2022-10-19] MEDS ORDERED: NS 1,000 ML IV ONE (14:30)
[2022-10-19 14:34] LABS: ALBUMIN 3.9 G/DL (3.2-5.2); ALKALINE PHOSPHATASE 55 U/L (46-116); ALT/SGPT 21 U/L (7.0-40); AST/SGOT 36 U/L (<34); BILIRUBIN,DIRECT < 0.1 MG/DL (<0.4); BILIRUBIN,TOTAL 0.4 MG/DL (0.3-1.2); CK-MB VALUE MASS < 1.0 NG/ML (<3.6); THYROID STIMULATING HORMONE 3.445 uIU/ML (0.55-4.78); THYROXINE (T4) 10.5 UG/DL (4.5-10.9); TOTAL PROTEIN 8.6 G/DL (5.7-8.2)
[2022-10-19 14:35] LABS: CPK CREATINE PHOSPHOKINASE 135 U/L (34-145); MB/CK RELATIVE INDEX 0.74 (< OR =4)
[2022-10-19] MEDS ORDERED: ACETAMINOPHEN 325 MG TAB PO ONE (14:45)
[2022-10-19] MEDS ORDERED: ALBUTEROL SULFATE 2.5MG/0.5ML INH NEB SOLN NEB ONE (15:40)
[2022-10-19] MEDS ORDERED: ACETAMINOPHEN TAB 650MG DOSE (2X325MG) PO PRN (16:45)
[2022-10-19] MEDS ORDERED: ISOVUE-370 76% 100ML VIAL As Ordered ONE (17:06)
[2022-10-19] MEDS ORDERED: FAMO40TA3 PO (19:21)
[2022-10-19] MEDS ORDERED: METO1TAB32 PO (19:21)
[2022-10-19] MEDS ORDERED: VITA400C50 PO (19:21)
[2022-10-19] MEDS ORDERED: PROL60SO SC (19:21)
[2022-10-19] MEDS ORDERED: LEXA1TAB2 PO (19:21)
[2022-10-19] MEDS ORDERED: ALPR0.25 PO (19:21)
[2022-10-19] MEDS ORDERED: HYDR200T3 PO (19:21)
[2022-10-19] MEDS ORDERED: COZA100T3 PO (19:21)
[2022-10-19] MEDS ORDERED: QVAR40AE12 INH (19:21)
[2022-10-19] MEDS ORDERED: HOME MED LIST COMPLETE! XX SCH (19:25)
[2022-10-19] MEDS: TORSEMIDE 10 MG TABLET PO SCH (20:13)
[2022-10-19] MEDS: AZITHROMYCIN 250MG TABLET PO SCH (20:14)
[2022-10-19] MEDS: guaiFENesin 200 MG TAB PO SCH (21:00)
[2022-10-19] MEDS: LEVALBUTEROL 1.25MG 0.5ML CONCENTRATE NEB INH SCH (21:09)
[2022-10-19] MEDS: methylPREDNISolone 125MG 2ML VIAL IV SCH (21:53)
[2022-10-19 22:29] VITALS: BP 124/55
[2022-10-19] MEDS: ENOXAPARIN 40MG/0.4ML SYRINGE (J1650 PER 10MG) SC SCH (23:03)
[2022-10-20] MEDS: LEVALBUTEROL 1.25MG 0.5ML CONCENTRATE NEB INH SCH ×4 (02:00→20:23)
[2022-10-20] MEDS: IPRATROPIUM 0.5MG/ALBUTEROL 2.5MG INH SOL UD 3ML (DUONEB) NEB PRN ×3 (02:02→13:34)
[2022-10-20] MEDS: guaiFENesin 200 MG TAB PO SCH ×4 (03:58→22:02)
[2022-10-20] MEDS: methylPREDNISolone 125MG 2ML VIAL IV SCH ×3 (03:58→21:54)
[2022-10-20] MEDS: LEVOTHYROXINE 75MCG TABLET (0.075MG) PO SCH (04:29)
[2022-10-20] MEDS ORDERED: BENZONATATE 100MG CAPSULE PO PRN (05:00)
[2022-10-20 05:29] VITALS: BP 125/61
[2022-10-20 06:46] LABS: HEMATOCRIT 32.7 % (36.0-47.0); HEMOGLOBIN 10.4 g/dl (12.0-15.5); MEAN CORPUSCULAR HEMOGLOBIN 29.5 pg (27.0-33.0); MEAN CORPUSCULAR HGB CONC 31.8 g/dl (32.0-36.5); MEAN CORPUSCULAR VOLUME 92.6 fl (80.0-96.0); PLATELET COUNT, AUTOMATED 225 10^3/uL (150-450); RED BLOOD COUNT 3.53 10^6/uL (4.00-5.40)
[2022-10-20 07:10] LABS: ALBUMIN 3.6 G/DL (3.2-5.2); ALKALINE PHOSPHATASE 52 U/L (46-116); ALT/SGPT 20 U/L (7.0-40); AST/SGOT 24 U/L (<34); BILIRUBIN,TOTAL 0.4 MG/DL (0.3-1.2); BLOOD UREA NITROGEN 11 MG/DL (9-23); CALCIUM LEVEL 8.7 MG/DL (8.3-10.6); CARBON DIOXIDE LEVEL 22 MMOL/L (20-31); CHLORIDE LEVEL 106 MMOL/L (98-107); CREATININE FOR GFR 0.56 MG/DL (0.55-1.30); GLOMERULAR FILTRATION RATE > 60.0 (>45); GLUCOSE, FASTING 176 MG/DL (74-106); MAGNESIUM LEVEL 1.7 MG/DL (1.8-2.4); SODIUM LEVEL 138 MMOL/L (136-145); TOTAL PROTEIN 8.5 G/DL (5.7-8.2)
[2022-10-20] MEDS ORDERED: ALPRAZolam 0.25 MG TAB PO PRN (07:35)
[2022-10-20] MEDS ORDERED: MAGNESIUM OXIDE 400MG TAB (MAG-OX) PO ONE (07:35)
[2022-10-20] MEDS: LOSARTAN 50MG TABLET PO SCH (10:21)
[2022-10-20] MEDS: CYANOCOBALAMIN 500 MCG TAB PO SCH (10:21)
[2022-10-20] MEDS: ESCITALOPRAM OXALATE 10 MG TAB (LEXAPRO) PO SCH (10:22)
[2022-10-20] MEDS: METOPROLOL SUCC *XL* 25MG TAB (TopROL *XL*) PO SCH (10:22)
[2022-10-20] MEDS: TORSEMIDE 10 MG TABLET PO SCH ×2 (10:22→16:50)
[2022-10-20] MEDS: ENOXAPARIN 40MG/0.4ML SYRINGE (J1650 PER 10MG) SC SCH ×2 (10:23→21:53)
[2022-10-20] MEDS: FAMOTIDINE 20 MG TAB PO SCH ×2 (10:23→21:54)
[2022-10-20 14:00] VITALS: BP 118/50
[2022-10-20 20:35] VITALS: BP 152/83
[2022-10-20] MEDS ORDERED: RAMELTEON 8 MG TAB (ROZEREM) PO SCH (21:00)
[2022-10-20] MEDS ORDERED: HYDROXYCHLOROQUINE 200 MG TAB PO SCH (21:00)
[2022-10-20] MEDS ORDERED: BACLOFEN 10 MG TAB PO SCH (21:00)
[2022-10-20] MEDS: traZODone 50 MG TAB PO SCH (21:53)
[2022-10-20] MEDS: AZITHROMYCIN 250MG TABLET PO SCH (21:53)
[2022-10-21] MEDS: guaiFENesin 200 MG TAB PO SCH ×2 (02:12→08:44)
[2022-10-21] MEDS: LEVALBUTEROL 1.25MG 0.5ML CONCENTRATE NEB INH SCH ×2 (02:16→07:53)
[2022-10-21] MEDS: LEVOTHYROXINE 75MCG TABLET (0.075MG) PO SCH (05:33)
[2022-10-21] MEDS: methylPREDNISolone 125MG 2ML VIAL IV SCH (05:33)
[2022-10-21 05:43] VITALS: BP 154/64
[2022-10-21 07:09] LABS: BASO % 0.2 % (0.0-1.0); HEMOGLOBIN 10.1 g/dl (12.0-15.5); LYMPH # 0.9 10^3/uL (1.5-5.0); LYMPH % 13.6 % (24.0-44.0); MEAN CORPUSCULAR HEMOGLOBIN 30.1 pg (27.0-33.0); MEAN CORPUSCULAR HGB CONC 31.6 g/dl (32.0-36.5); MEAN CORPUSCULAR VOLUME 95.2 fl (80.0-96.0); MONO # 0.4 10^3/uL (0.0-0.8); MONO % 5.9 % (2.0-8.0); NEUTROPHILS # 5.1 10^3/uL (1.5-8.5); NEUTROPHILS % 79.5 % (36.0-66.0); PLATELET COUNT, AUTOMATED 247 10^3/uL (150-450); RED BLOOD COUNT 3.36 10^6/uL (4.00-5.40); WHITE BLOOD COUNT 6.4 10^3/uL (4.0-10.0)
[2022-10-21 07:58] LABS: ALBUMIN 3.5 G/DL (3.2-5.2); ALKALINE PHOSPHATASE 45 U/L (46-116); ALT/SGPT 19 U/L (7.0-40); AST/SGOT 24 U/L (<34); BILIRUBIN,TOTAL 0.3 MG/DL (0.3-1.2); BLOOD UREA NITROGEN 17 MG/DL (9-23); CALCIUM LEVEL 8.6 MG/DL (8.3-10.6); CARBON DIOXIDE LEVEL 25 MMOL/L (20-31); CHLORIDE LEVEL 106 MMOL/L (98-107); CREATININE FOR GFR 0.59 MG/DL (0.55-1.30); GLOMERULAR FILTRATION RATE > 60.0 (>45); GLUCOSE, FASTING 128 MG/DL (74-106); MAGNESIUM LEVEL 2.1 MG/DL (1.8-2.4); POTASSIUM SERUM 4.1 MMOL/L (3.5-5.1); SODIUM LEVEL 138 MMOL/L (136-145); TOTAL PROTEIN 8.2 G/DL (5.7-8.2)
[2022-10-21] MEDS ORDERED: GUAI20TA PO (08:39)
[2022-10-21] MEDS ORDERED: IPRA0.00 INH (08:39)
[2022-10-21] MEDS ORDERED: PRED20TA PO (08:39)
[2022-10-21] MEDS ORDERED: AZIT-12 PO (08:39)
[2022-10-21] MEDS ORDERED: PRED50TA PO (08:39)
[2022-10-21] MEDS ORDERED: ALBU8.5H INH (08:39)
[2022-10-21 08:45] VITALS: BP 150/67
[2022-10-21] MEDS: FAMOTIDINE 20 MG TAB PO SCH (08:45)
[2022-10-21] MEDS: LOSARTAN 50MG TABLET PO SCH (08:45)
[2022-10-21] MEDS: ESCITALOPRAM OXALATE 10 MG TAB (LEXAPRO) PO SCH (08:45)
[2022-10-21] MEDS: CYANOCOBALAMIN 500 MCG TAB PO SCH (08:45)
[2022-10-21] MEDS: TORSEMIDE 10 MG TABLET PO SCH (08:45)
[2022-10-21] MEDS: METOPROLOL SUCC *XL* 25MG TAB (TopROL *XL*) PO SCH (08:45)
[2022-10-21] MEDS: ENOXAPARIN 40MG/0.4ML SYRINGE (J1650 PER 10MG) SC SCH (08:46)
[2022-10-21] MEDS ORDERED: AZITHROMYCIN 250MG TABLET PO ONE (09:00)
== END 2022-10-21 10:38 | disposition home or self-care (01) | DRG 202 ==
LOC: M ED 11:45 → M ED INP 16:45 → ENRESERV 21:58 → M MSPAV 22:29
PROVIDERS: ADMIT Family Medicine; ATTEND Family Medicine
DX: J45.901 Unspecified asthma with (acute) exacerbation (principal); C90.00 Multiple myeloma not having achieved remission; E87.20 Acidosis, unspecified; Z68.43 Body mass index [BMI] 50.0-59.9, adult; E66.9 Obesity, unspecified; I10 Essential (primary) hypertension; B34.8 Other viral infections of unspecified site; E03.9 Hypothyroidism, unspecified; R91.1 Solitary pulmonary nodule; Z79.890 Hormone replacement therapy; Z79.899 Other long term (current) drug therapy; Z88.2 Allergy status to sulfonamides; Z20.822 Contact with and (suspected) exposure to COVID-19

== ENCOUNTER → 2022-11-05 | Outpatient (REF) | payer MEDICARE, BC ==
[~2022-11-05] MED LIST changes: +ALBU8.5H INH; +ALPR0.25 PO; +AZIT-12 PO; +COZA100T3 PO; -COZA50TA PO; +FAMO40TA3 PO; +GUAI20TA PO; +HYDR200T3 PO; +IPRA0.00 INH; +LEXA1TAB2 PO; +LOSA-528 PO; +METO1TAB32 PO; +PRED50TA PO; +PROL60SO SC; +QVAR40AE12 INH; +VITA400C50 PO
== END ==
LOC: M SFHCPLAZ 09:16
PROVIDERS: ATTEND Physician Assistant
DX: R19.7 Diarrhea, unspecified (principal)

== ENCOUNTER → 2022-12-14 | Outpatient (CLI) | payer MEDICARE, BC ==
[~2022-12-14] MED LIST changes: -HYDR200T3 PO; +HYDR200T46 PO
== END ==
LOC: M WHC 08:55
PROVIDERS: ATTEND Nurse Practitioner Adult Health
DX: Z12.31 Encounter for screening mammogram for malignant neoplasm of breast (principal)

== ENCOUNTER → 2023-01-26 | Outpatient (REF) | payer MEDICARE, BC ==
[~2023-01-26] MED LIST changes: +DICY-61 PO; -DICY10CA13 PO
[2023-01-26 21:13] LABS: CHOLESTEROL RISK RATIO 3.01 (<5); HDL CHOLESTEROL 49.8 MG/DL (>40); LDL CHOLESTEROL 59.8 MG/DL (<100); NON-HDL-C 100.2 MG/DL
[2023-01-26 21:16] LABS: THYROID STIMULATING HORMONE 4.591 uIU/ML (0.55-4.78)
== END ==
LOC: M SFHCPLAZ 20:29
PROVIDERS: ATTEND Nurse Practitioner Adult Health
DX: Z00.00 Encounter for general adult medical examination without abnormal findings (principal); E03.9 Hypothyroidism, unspecified; Z13.220 Encounter for screening for lipoid disorders

== ENCOUNTER → 2023-02-24 | Outpatient (CLI) | payer MEDICARE, BC ==
[~2023-02-24] MED LIST changes: +BUPR150T12
== END ==
LOC: M RAD 10:57
PROVIDERS: ATTEND Physician Assistant Surgical
DX: R10.9 Unspecified abdominal pain (principal)

== ENCOUNTER → 2023-02-25 | Outpatient (REF) | payer MEDICARE, BC | LOC: M LAB REF 10:21 | PROVIDERS: ATTEND Physician Assistant Surgical | DX: R19.7 Diarrhea, unspecified (principal) ==

== ENCOUNTER → 2023-02-28 | Outpatient (CLI) | payer MEDICARE, BC ==
[~2023-02-28] MED LIST changes: -COZA100T3 PO; +LOSA-530 PO
[2023-02-28 13:05] LABS: C REACTIVE PROTEIN QUANTITATIV 0.4 MG/DL (<1.0)
[2023-02-28 13:07] LABS: TOTAL 25(OH) VITAMIN D 55.8 NG/ML (20.0-100.0)
== END ==
LOC: M LAB 12:11
PROVIDERS: ATTEND Internal Medicine
DX: M06.4 Inflammatory polyarthropathy (principal); Z79.899 Other long term (current) drug therapy

== ENCOUNTER → 2023-03-15 | Outpatient (CLI) | payer MEDICARE, BC | LOC: M RAD 06:56 | PROVIDERS: ATTEND Student in an Organized Health Care Education/Training Program | DX: K85.90 Acute pancreatitis without necrosis or infection, unspecified (principal); Z90.49 Acquired absence of other specified parts of digestive tract; N28.1 Cyst of kidney, acquired; K76.0 Fatty (change of) liver, not elsewhere classified ==

== ENCOUNTER → 2023-03-21 | Outpatient (REF) | payer MEDICARE, BC ==
[2023-03-21 20:32] LABS: APPEARANCE, URINE CLEAR (CLEAR); BACTERIA, URINE AUTO NEGATIVE (NEGATIVE); BILIRUBIN, URINE AUTO NEGATIVE (NEGATIVE); BLOOD, URINE BLOOD NEGATIVE (NEGATIVE); COLOR, URINE YELLOW (YELLOW); GLUCOSE, URINE (UA) AUTO NEGATIVE (NEGATIVE); KETONE, URINE AUTO NEGATIVE (NEGATIVE); LEUKOCYTE ESTERASE, URINE AUTO 1+ (NEGATIVE); NITRITE, URINE AUTO NEGATIVE (NEGATIVE); PROTEIN, URINE AUTO NEGATIVE (NEGATIVE); RBC, URINE AUTO 1 /HPF (0-3); SPECIFIC GRAVITY URINE AUTO 1.008 (1.002-1.035); SQUAMOUS EPITHELIAL CELL UR AU 1 /HPF (0-6); UROBILINOGEN, URINE AUTO 0.2 mg/dL (0.0-2.0); WBC, URINE AUTO 8 /HPF (0-3)
== END ==
LOC: M SFHCWAGY 17:27
PROVIDERS: ATTEND Nurse Practitioner Family
DX: R39.15 Urgency of urination (principal); N39.0 Urinary tract infection, site not specified; Z11.3 Encounter for screening for infections with a predominantly sexual mode of transmission

== ENCOUNTER → 2023-03-24 | Outpatient (REF) | payer MEDICARE, BC | LOC: M LAB REF 12:09 | PROVIDERS: ATTEND Student in an Organized Health Care Education/Training Program | DX: R19.7 Diarrhea, unspecified (principal); K86.81 Exocrine pancreatic insufficiency ==

== ENCOUNTER → 2023-04-28 | Outpatient (REF) | payer MEDICARE, BC | LOC: M WUC 12:02 | PROVIDERS: ATTEND Internal Medicine Endocrinology, Diabetes & Metabolism | DX: E03.9 Hypothyroidism, unspecified (principal) ==

== ENCOUNTER → 2023-05-02 | Outpatient (CLI) | payer MEDICARE, BC | LOC: M PLAIMG 08:18 | PROVIDERS: ATTEND Nurse Practitioner Family | DX: R91.1 Solitary pulmonary nodule (principal); J84.10 Pulmonary fibrosis, unspecified ==

== ENCOUNTER → 2023-05-17 | Outpatient (CLI) | payer MEDICARE, BC ==
[~2023-05-17] MED LIST changes: -FLUT50SP17; +FLUTISP
[2023-05-17 17:38] LABS: HEMATOCRIT 36.6 % (36.0-47.0); HEMOGLOBIN 11.7 g/dl (12.0-15.5); MEAN CORPUSCULAR HEMOGLOBIN 30.5 pg (27.0-33.0); MEAN CORPUSCULAR VOLUME 95.3 fl (80.0-96.0); PLATELET COUNT, AUTOMATED 298 10^3/uL (150-450); RED BLOOD COUNT 3.84 10^6/uL (4.00-5.40); WHITE BLOOD COUNT 7.4 10^3/uL (4.0-10.0)
[2023-05-17 18:09] LABS: ALBUMIN 3.5 G/DL (3.2-5.2); ALKALINE PHOSPHATASE 60 U/L (46-116); ALT/SGPT 24 U/L (7.0-40); AST/SGOT 22 U/L (<34); BILIRUBIN,TOTAL 0.3 MG/DL (0.3-1.2); BLOOD UREA NITROGEN 15 MG/DL (9-23); CALCIUM LEVEL 9.2 MG/DL (8.3-10.6); CARBON DIOXIDE LEVEL 28 MMOL/L (20-31); CHLORIDE LEVEL 104 MMOL/L (98-107); CREATININE FOR GFR 0.96 MG/DL (0.55-1.30); GLOMERULAR FILTRATION RATE > 60.0 (>45); GLUCOSE, FASTING 92 MG/DL (74-106); POTASSIUM SERUM 4.4 MMOL/L (3.5-5.1); SODIUM LEVEL 140 MMOL/L (136-145); TOTAL PROTEIN 8.2 G/DL (5.7-8.2)
[2023-05-17 18:11] LABS: THYROID STIMULATING HORMONE 3.394 uIU/ML (0.55-4.78)
== END ==
LOC: M PLALAB 16:26
PROVIDERS: ATTEND Nurse Practitioner Adult Health
DX: I48.91 Unspecified atrial fibrillation (principal)

== ENCOUNTER 2023-06-16 00:43 | Emergency (ER) | payer MEDICARE, BC ==
[~2023-06-16] VITALS: Ht 170.2 cm; Wt 158.3 kg
[2023-06-16 00:45] VITALS: TEMP 96.7
[2023-06-16] MEDS ORDERED: ELIQ5TAB (00:54)
[2023-06-16 03:38] LABS: BASO % 0.5 % (0.0-1.0); EOS # 0.1 10^3/uL (0.0-0.5); EOS % 1.8 % (0.0-3.0); HEMATOCRIT 37.2 % (36.0-47.0); HEMOGLOBIN 12.2 g/dl (12.0-15.5); LYMPH % 32.6 % (24.0-44.0); MEAN CORPUSCULAR HEMOGLOBIN 30.9 pg (27.0-33.0); MEAN CORPUSCULAR HGB CONC 32.8 g/dl (32.0-36.5); MEAN CORPUSCULAR VOLUME 94.2 fl (80.0-96.0); MONO # 0.5 10^3/uL (0.0-0.8); MONO % 7.5 % (2.0-8.0); NEUTROPHILS # 3.5 10^3/uL (1.5-8.5); NEUTROPHILS % 57.3 % (36.0-66.0); PLATELET COUNT, AUTOMATED 259 10^3/uL (150-450); RED BLOOD COUNT 3.95 10^6/uL (4.00-5.40)
[2023-06-16 04:01] LABS: LIPASE 36 U/L (12-53)
[2023-06-16 04:03] LABS: ALBUMIN 3.8 G/DL (3.2-5.2); ALKALINE PHOSPHATASE 51 U/L (46-116); ALT/SGPT 24 U/L (7.0-40); AST/SGOT 35 U/L (<34); BILIRUBIN,DIRECT 0.1 MG/DL (<0.4); BILIRUBIN,TOTAL 0.5 MG/DL (0.3-1.2); BLOOD UREA NITROGEN 17 MG/DL (9-23); CALCIUM LEVEL 9.2 MG/DL (8.3-10.6); CARBON DIOXIDE LEVEL 27 MMOL/L (20-31); CHLORIDE LEVEL 104 MMOL/L (98-107); CREATININE FOR GFR 0.83 MG/DL (0.55-1.30); GLOMERULAR FILTRATION RATE > 60.0 (>45); GLUCOSE, FASTING 98 MG/DL (74-106); POTASSIUM SERUM 4.3 MMOL/L (3.5-5.1); SODIUM LEVEL 137 MMOL/L (136-145); TOTAL PROTEIN 8.5 G/DL (5.7-8.2)
[2023-06-16] MEDS ORDERED: ISOVUE-370 76% 100ML VIAL As Ordered ONE (04:45)
[2023-06-16 06:40] VITALS: BP 119/80; O2SAT 98
== END 2023-06-16 06:41 | disposition home or self-care (01) ==
LOC: M ED 00:43
DX: R07.9 Chest pain, unspecified (principal); I48.91 Unspecified atrial fibrillation; I44.4 Left anterior fascicular block; I45.10 Unspecified right bundle-branch block; I10 Essential (primary) hypertension; F41.9 Anxiety disorder, unspecified; G43.909 Migraine, unspecified, not intractable, without status migrainosus; J45.909 Unspecified asthma, uncomplicated; Z88.2 Allergy status to sulfonamides; Z79.52 Long term (current) use of systemic steroids; Z79.811 Long term (current) use of aromatase inhibitors; Z79.01 Long term (current) use of anticoagulants; Z79.899 Other long term (current) drug therapy
CPT/HCPCS: 36415; 71045; 71275; 80048; 80076; 83690; 84484; 85025; 87486; 87581; 87633; 87798; 93005; 99284; Q9967

== ENCOUNTER → 2023-07-11 | Outpatient (CLI) | payer MEDICARE, BC ==
[~2023-07-11] MED LIST changes: +ELIQ5TAB
[2023-07-11 11:58] LABS: FREE T4 0.96 NG/DL (0.89-1.76); THYROID STIMULATING HORMONE 6.066 uIU/ML (0.55-4.78); TOTAL T3 123.3 NG/DL (60.0-181.0)
== END ==
LOC: M LAB 10:59
PROVIDERS: ATTEND Internal Medicine Endocrinology, Diabetes & Metabolism
DX: E03.9 Hypothyroidism, unspecified (principal)

== ENCOUNTER → 2023-07-15 | Outpatient (REF) | payer MEDICARE, BC | LOC: M SFHCWAGY 15:38 | PROVIDERS: ATTEND Nurse Practitioner Family | DX: Z12.72 Encounter for screening for malignant neoplasm of vagina (principal); R87.618 Other abnormal cytological findings on specimens from cervix uteri | CPT/HCPCS: 87624; G0123 ==

== ENCOUNTER → 2023-07-19 | Outpatient (REF) | payer MEDICARE, BC | LOC: M SFHCPLAZ 17:04 | PROVIDERS: ATTEND Nurse Practitioner Adult Health | DX: R68.89 Other general symptoms and signs (principal) ==

== ENCOUNTER → 2023-08-18 | Outpatient (REF) | payer MEDICARE, BC ==
[~2023-08-18] MED LIST changes: -BUPR150T12; +BUPR150T12 PO; -ELIQ5TAB; +ELIQ5TAB PO; +METO1TAB7 PO; +ONDA8TAB8 PO
== END ==
LOC: M LAB REF 15:43
PROVIDERS: ATTEND Physician Assistant Surgical
DX: R19.7 Diarrhea, unspecified (principal)

== ENCOUNTER → 2023-09-08 | Outpatient (CLI) | payer MEDICARE, BC ==
[2023-09-08 11:30] LABS: FREE T4 1.14 NG/DL (0.89-1.76); THYROID STIMULATING HORMONE 1.748 uIU/ML (0.55-4.78)
== END ==
LOC: M LAB 10:06
PROVIDERS: ATTEND Internal Medicine Endocrinology, Diabetes & Metabolism
DX: E03.9 Hypothyroidism, unspecified (principal)

== ENCOUNTER 2023-09-15 14:19 | Emergency (ER) | payer BC, MEDICARE ==
[~2023-09-15] VITALS: Ht 170.2 cm; Wt 153.6 kg
[2023-09-15 14:51] VITALS: BP 128/77
[2023-09-15] MEDS: METOPROLOL SUCC (TopROL XL) 50MG **XL** TAB PO ONE (14:51)
[2023-09-15] MEDS: NITROGLYCERIN 0.4MG SUBL TABLET SL PRN (14:51)
[2023-09-15 15:15] LABS: BASO % 0.1 % (0.0-1.0); EOS % 0.5 % (0.0-3.0); HEMOGLOBIN 11.4 g/dl (12.0-15.5); LYMPH # 1.7 10^3/uL (1.5-5.0); LYMPH % 19.6 % (24.0-44.0); MEAN CORPUSCULAR HEMOGLOBIN 30.6 pg (27.0-33.0); MEAN CORPUSCULAR HGB CONC 32.6 g/dl (32.0-36.5); MEAN CORPUSCULAR VOLUME 94.1 fl (80.0-96.0); MONO # 0.6 10^3/uL (0.0-0.8); MONO % 6.6 % (2.0-8.0); NEUTROPHILS # 6.2 10^3/uL (1.5-8.5); PLATELET COUNT, AUTOMATED 260 10^3/uL (150-450); RED BLOOD COUNT 3.72 10^6/uL (4.00-5.40); WHITE BLOOD COUNT 8.5 10^3/uL (4.0-10.0)
[2023-09-15 15:42] LABS: LIPASE 26 U/L (12-53)
[2023-09-15 15:44] LABS: ALBUMIN 3.4 G/DL (3.2-5.2); ALKALINE PHOSPHATASE 51 U/L (46-116); ALT/SGPT 14 U/L (7.0-40); AST/SGOT 43 U/L (<34); BILIRUBIN,DIRECT 0.2 MG/DL (<0.4); BILIRUBIN,TOTAL 0.6 MG/DL (0.3-1.2); BLOOD UREA NITROGEN 12 MG/DL (9-23); CALCIUM LEVEL 8.4 MG/DL (8.3-10.6); CARBON DIOXIDE LEVEL 28 MMOL/L (20-31); CHLORIDE LEVEL 104 MMOL/L (98-107); CREATININE FOR GFR 0.68 MG/DL (0.55-1.30); GLOMERULAR FILTRATION RATE > 60.0 (>45); GLUCOSE, FASTING 140 MG/DL (74-106); POTASSIUM SERUM 3.1 MMOL/L (3.5-5.1); SODIUM LEVEL 136 MMOL/L (136-145); TOTAL PROTEIN 8.1 G/DL (5.7-8.2)
[2023-09-15 15:46] LABS: FREE T4 1.22 NG/DL (0.89-1.76); THYROID STIMULATING HORMONE 1.249 uIU/ML (0.55-4.78)
[2023-09-15 15:52] LABS: CPK CREATINE PHOSPHOKINASE 742 U/L (34-145); MB/CK RELATIVE INDEX 0.53 (< OR =4)
[2023-09-15] MEDS ORDERED: ISOVUE-370 76% 100ML VIAL As Ordered ONE (15:57)
[2023-09-15 16:56] LABS: CK-MB VALUE MASS 3.4 NG/ML (<3.6)
[2023-09-15 16:58] LABS: MB/CK RELATIVE INDEX 0.47 (< OR =4)
[2023-09-15] MEDS: MORPHINE 4 MG/ML 1ML VIAL IV ONE (17:18)
[2023-09-15] MEDS ORDERED: HOME MED LIST COMPLETE! XX SCH (17:40)
[2023-09-15] MEDS ORDERED: D3 H400T PO (17:40)
[2023-09-15] MEDS ORDERED: LOSA50TA28 PO (17:40)
[2023-09-15] MEDS ORDERED: CREO3600 PO (17:40)
[2023-09-15] MEDS ORDERED: FLUO20CA22 PO (17:42)
[2023-09-15 18:15] VITALS: BP 106/58; TEMP 98.8; O2SAT 95
== END 2023-09-15 18:32 | disposition home or self-care (01) ==
LOC: M ED 14:19 → EDBD 14:19 → M ED 18:32
DX: G89.18 Other acute postprocedural pain (principal); I48.91 Unspecified atrial fibrillation; I10 Essential (primary) hypertension; E78.5 Hyperlipidemia, unspecified; Z87.19 Personal history of other diseases of the digestive system; K21.9 Gastro-esophageal reflux disease without esophagitis; J45.909 Unspecified asthma, uncomplicated; M79.7 Fibromyalgia; D47.2 Monoclonal gammopathy; Z98.61 Coronary angioplasty status; Z90.49 Acquired absence of other specified parts of digestive tract; I27.20 Pulmonary hypertension, unspecified; Z79.01 Long term (current) use of anticoagulants; Z79.899 Other long term (current) drug therapy; Z88.2 Allergy status to sulfonamides
CPT/HCPCS: 71045; 71275; 80048; 80076; 82550; 82553; 83690; 83880; 84439; 84443; 84484; 85025; 93005; 93041; 94760; 96374; 99285; Q9967

== ENCOUNTER → 2023-09-17 | Outpatient (CLI) | payer MEDICARE, BC ==
[~2023-09-17] MED LIST changes: +CREO3600 PO; +D3 H400T PO; +FLUO20CA22 PO; +LOSA50TA28 PO
[2023-09-17 12:22] LABS: BLOOD UREA NITROGEN 9 MG/DL (9-23); CREATININE FOR GFR 0.69 MG/DL (0.55-1.30); GLOMERULAR FILTRATION RATE > 60.0 (>45)
== END ==
LOC: M LAB 10:39
PROVIDERS: ATTEND Physician Assistant Surgical
DX: K86.81 Exocrine pancreatic insufficiency (principal); R19.4 Change in bowel habit

== ENCOUNTER → 2023-09-19 | Outpatient (CLI) | payer BC, MEDICARE ==
[~2023-09-19] MED LIST changes: +ISOVUE-370 76% 100ML VIAL As Ordered ONE
== END ==
LOC: M RAD 09:46
PROVIDERS: ATTEND Physician Assistant Surgical
DX: K86.81 Exocrine pancreatic insufficiency (principal); R19.4 Change in bowel habit; J84.10 Pulmonary fibrosis, unspecified; Z90.49 Acquired absence of other specified parts of digestive tract; N28.1 Cyst of kidney, acquired; K44.9 Diaphragmatic hernia without obstruction or gangrene
CPT/HCPCS: 74170; Q9967

== ENCOUNTER → 2023-09-20 | Outpatient (REF) | payer MEDICARE, BC ==
[~2023-09-20] MED LIST changes: -ISOVUE-370 76% 100ML VIAL As Ordered ONE
[2023-09-20 13:46] LABS: APPEARANCE, URINE HAZY (CLEAR); BACTERIA, URINE AUTO NEGATIVE (NEGATIVE); BILIRUBIN, URINE AUTO NEGATIVE (NEGATIVE); BLOOD, URINE BLOOD NEGATIVE (NEGATIVE); COLOR, URINE YELLOW (YELLOW); GLUCOSE, URINE (UA) AUTO NEGATIVE (NEGATIVE); KETONE, URINE AUTO NEGATIVE (NEGATIVE); LEUKOCYTE ESTERASE, URINE AUTO NEGATIVE (NEGATIVE); MUCUS, URINE SMALL (NEGATIVE); NITRITE, URINE AUTO NEGATIVE (NEGATIVE); PROTEIN, URINE AUTO NEGATIVE (NEGATIVE); RBC, URINE AUTO 0 /HPF (0-3); SPECIFIC GRAVITY URINE AUTO 1.013 (1.002-1.035); SQUAMOUS EPITHELIAL CELL UR AU 3 /HPF (0-6); UROBILINOGEN, URINE AUTO 0.2 mg/dL (0.0-2.0); WBC, URINE AUTO 1 /HPF (0-3)
[2023-09-20 14:41] LABS: CREATININE, URINE 84.3 MG/DL; MAU/CREAT RATIO 14.2 MCG/MG (0.0-30.0)
== END ==
LOC: M SFHCPLAZ 13:20
PROVIDERS: ATTEND Physician Assistant
DX: R39.9 Unspecified symptoms and signs involving the genitourinary system (principal); R73.09 Other abnormal glucose

== ENCOUNTER → 2023-09-23 | Outpatient (CLI) | payer MEDICARE, BC ==
[2023-09-23 08:50] LABS: BASO % 0.5 % (0.0-1.0); EOS # 0.1 10^3/uL (0.0-0.5); EOS % 2.4 % (0.0-3.0); HEMATOCRIT 34.3 % (36.0-47.0); HEMOGLOBIN 10.9 g/dl (12.0-15.5); LYMPH # 1.4 10^3/uL (1.5-5.0); LYMPH % 35.7 % (24.0-44.0); MEAN CORPUSCULAR HEMOGLOBIN 30.3 pg (27.0-33.0); MEAN CORPUSCULAR HGB CONC 31.8 g/dl (32.0-36.5); MEAN CORPUSCULAR VOLUME 95.3 fl (80.0-96.0); MONO # 0.3 10^3/uL (0.0-0.8); MONO % 8.9 % (2.0-8.0); NEUTROPHILS % 51.7 % (36.0-66.0); PLATELET COUNT, AUTOMATED 232 10^3/uL (150-450); WHITE BLOOD COUNT 3.8 10^3/uL (4.0-10.0)
[2023-09-23 09:12] LABS: ALBUMIN 3.4 G/DL (3.2-5.2); ALKALINE PHOSPHATASE 52 U/L (46-116); ALT/SGPT 14 U/L (7.0-40); AST/SGOT 15 U/L (<34); BILIRUBIN,TOTAL 0.5 MG/DL (0.3-1.2); BLOOD UREA NITROGEN 14 MG/DL (9-23); CALCIUM LEVEL 8.6 MG/DL (8.3-10.6); CARBON DIOXIDE LEVEL 31 MMOL/L (20-31); CHLORIDE LEVEL 108 MMOL/L (98-107); CREATININE FOR GFR 0.69 MG/DL (0.55-1.30); GLOMERULAR FILTRATION RATE > 60.0 (>45); GLUCOSE, FASTING 93 MG/DL (74-106); POTASSIUM SERUM 3.6 MMOL/L (3.5-5.1); SODIUM LEVEL 141 MMOL/L (136-145); TOTAL PROTEIN 7.8 G/DL (5.7-8.2)
[2023-09-23 09:20] LABS: HEMOGLOBIN A1c 5.4 % (4.0-6.0)
== END ==
LOC: M LAB 08:15
PROVIDERS: ATTEND Physician Assistant
DX: R39.9 Unspecified symptoms and signs involving the genitourinary system (principal); R73.09 Other abnormal glucose; I10 Essential (primary) hypertension

== ENCOUNTER → 2023-10-03 | Outpatient (CLI) | payer MEDICARE, BC | LOC: M PLARAD 10:31 | PROVIDERS: ATTEND Nurse Practitioner | DX: C90.00 Multiple myeloma not having achieved remission (principal) | CPT/HCPCS: 78816; A9552 ==

== ENCOUNTER → 2023-10-24 | Outpatient (REF) | payer MEDICARE, BC ==
[2023-10-24 12:49] LABS: ALBUMIN 3.4 G/DL (3.2-5.2); ALKALINE PHOSPHATASE 67 U/L (46-116); ALT/SGPT 14 U/L (7.0-40); AST/SGOT 15 U/L (<34); BILIRUBIN,TOTAL 0.5 MG/DL (0.3-1.2); BLOOD UREA NITROGEN 12 MG/DL (9-23); CALCIUM LEVEL 8.4 MG/DL (8.3-10.6); CARBON DIOXIDE LEVEL 32 MMOL/L (20-31); CHLORIDE LEVEL 104 MMOL/L (98-107); CHOLESTEROL LEVEL 137 MG/DL (<200); CHOLESTEROL RISK RATIO 3.35 (<5); CREATININE FOR GFR 0.66 MG/DL (0.55-1.30); GLOMERULAR FILTRATION RATE > 60.0 (>45); GLUCOSE, FASTING 92 MG/DL (74-106); HDL CHOLESTEROL 40.8 MG/DL (>40); LDL CHOLESTEROL 60.4 MG/DL (<100); MAGNESIUM LEVEL 1.6 MG/DL (1.8-2.4); NON-HDL-C 96.2 MG/DL; POTASSIUM SERUM 3.8 MMOL/L (3.5-5.1); SODIUM LEVEL 140 MMOL/L (136-145); TOTAL PROTEIN 8.4 G/DL (5.7-8.2); TRIGLYCERIDES LEVEL 179 MG/DL (<150)
== END ==
LOC: M LAB REF 12:00
PROVIDERS: ATTEND Nurse Practitioner Adult Health
DX: J45.20 Mild intermittent asthma, uncomplicated (principal); R39.9 Unspecified symptoms and signs involving the genitourinary system; R73.9 Hyperglycemia, unspecified

== ENCOUNTER → 2023-12-13 | Outpatient (CLI) | payer MEDICARE, BC ==
[~2023-12-13] MED LIST changes: +FLUO-365; +FLUO-365 PO; -FLUO20CA22; -FLUO20CA22 PO; +ONDA-284 PO; -ONDA8TAB8 PO
== END ==
LOC: M RAD 08:10
PROVIDERS: ATTEND Internal Medicine
DX: M06.4 Inflammatory polyarthropathy (principal); Z98.890 Other specified postprocedural states

== ENCOUNTER → 2023-12-13 | Outpatient (REF) | payer MEDICARE, BC ==
[2023-12-13 13:07] LABS: AMORPHOUS SEDIMENT SMALL (NEGATIVE); APPEARANCE, URINE CLOUDY (CLEAR); BACTERIA, URINE AUTO NEGATIVE (NEGATIVE); BILIRUBIN, URINE AUTO NEGATIVE (NEGATIVE); BLOOD, URINE BLOOD NEGATIVE (NEGATIVE); CALCIUM OXALATE CRYSTALS SMALL; COLOR, URINE YELLOW (YELLOW); GLUCOSE, URINE (UA) AUTO NEGATIVE (NEGATIVE); KETONE, URINE AUTO NEGATIVE (NEGATIVE); LEUKOCYTE ESTERASE, URINE AUTO NEGATIVE (NEGATIVE); MUCUS, URINE SMALL (NEGATIVE); NITRITE, URINE AUTO NEGATIVE (NEGATIVE); PROTEIN, URINE AUTO NEGATIVE (NEGATIVE); RBC, URINE AUTO 9 /HPF (0-3); SPECIFIC GRAVITY URINE AUTO 1.021 (1.002-1.035); SQUAMOUS EPITHELIAL CELL UR AU 1 /HPF (0-6); WBC, URINE AUTO 1 /HPF (0-3)
[2023-12-13 13:14] LABS: BASO % 0.6 % (0.0-1.0); EOS # 0.1 10^3/uL (0.0-0.5); EOS % 2.2 % (0.0-3.0); HEMATOCRIT 33.1 % (36.0-47.0); LYMPH # 1.5 10^3/uL (1.5-5.0); LYMPH % 31.5 % (24.0-44.0); MEAN CORPUSCULAR HGB CONC 33.2 g/dl (32.0-36.5); MEAN CORPUSCULAR VOLUME 93.2 fl (80.0-96.0); MONO # 0.3 10^3/uL (0.0-0.8); MONO % 5.5 % (2.0-8.0); NEUTROPHILS # 2.9 10^3/uL (1.5-8.5); NEUTROPHILS % 59.8 % (36.0-66.0); PLATELET COUNT, AUTOMATED 243 10^3/uL (150-450); RED BLOOD COUNT 3.55 10^6/uL (4.00-5.40); WHITE BLOOD COUNT 4.9 10^3/uL (4.0-10.0)
[2023-12-13 13:22] LABS: ERYTHROCYTE SEDIMENTATION RATE 73 mm/hr (0-30)
[2023-12-13 13:24] LABS: TOTAL PROTEIN,RANDOM URINE 19.4 MG/DL (0.0-14.0)
[2023-12-13 13:28] LABS: ALBUMIN 3.7 G/DL (3.2-5.2); ALKALINE PHOSPHATASE 76 U/L (46-116); ALT/SGPT 15 U/L (7.0-40); AST/SGOT 15 U/L (<34); BILIRUBIN,DIRECT 0.1 MG/DL (<0.4); BILIRUBIN,TOTAL 0.4 MG/DL (0.3-1.2); BLOOD UREA NITROGEN 11 MG/DL (9-23); CARBON DIOXIDE LEVEL 28 MMOL/L (20-31); CHLORIDE LEVEL 105 MMOL/L (98-107); COMPLEMENT C4 10.2 MG/DL (12-36); GLOMERULAR FILTRATION RATE > 60.0 (>45); GLUCOSE, FASTING 107 MG/DL (74-106); POTASSIUM SERUM 3.8 MMOL/L (3.5-5.1); SODIUM LEVEL 137 MMOL/L (136-145); TOTAL PROTEIN 8.8 G/DL (5.7-8.2)
[2023-12-13 13:29] LABS: CREATININE,RANDOM URINE 173.9 MG/DL
== END ==
LOC: M SFHCRHEU 09:11
PROVIDERS: ATTEND Internal Medicine
DX: M06.4 Inflammatory polyarthropathy (principal); Z79.899 Other long term (current) drug therapy

== ENCOUNTER → 2023-12-19 | Outpatient (CLI) | payer MEDICARE, BC | LOC: M WHC 10:49 | PROVIDERS: ATTEND Nurse Practitioner Adult Health | DX: Z12.31 Encounter for screening mammogram for malignant neoplasm of breast (principal); R92.313 Mammographic fatty tissue density, bilateral breasts ==

== ENCOUNTER → 2023-12-21 | Outpatient (CLI) | payer MEDICARE, BC | LOC: M LAB 07:12 | PROVIDERS: ATTEND Internal Medicine | DX: Z79.899 Other long term (current) drug therapy (principal) ==

== ENCOUNTER → 2024-02-15 | Outpatient (CLI) | payer MEDICARE, BC ==
[2024-02-15 14:16] LABS: ALBUMIN 3.7 G/DL (3.2-5.2); ALKALINE PHOSPHATASE 89 U/L (46-116); ALT/SGPT 16 U/L (7.0-40); AST/SGOT 17 U/L (<34); BILIRUBIN,TOTAL 0.4 MG/DL (0.3-1.2); BLOOD UREA NITROGEN 14 MG/DL (9-23); CALCIUM LEVEL 8.9 MG/DL (8.3-10.6); CARBON DIOXIDE LEVEL 30 MMOL/L (20-31); CHLORIDE LEVEL 106 MMOL/L (98-107); CREATININE FOR GFR 0.71 MG/DL (0.55-1.30); GLOMERULAR FILTRATION RATE > 60.0 (>45); GLUCOSE, FASTING 92 MG/DL (74-106); MAGNESIUM LEVEL 1.8 MG/DL (1.8-2.4); POTASSIUM SERUM 4.3 MMOL/L (3.5-5.1); SODIUM LEVEL 137 MMOL/L (136-145); TOTAL PROTEIN 9.3 G/DL (5.7-8.2)
== END ==
LOC: M PLALAB 11:27
PROVIDERS: ATTEND Physician Assistant Medical
DX: R25.2 Cramp and spasm (principal)

== ENCOUNTER → 2024-02-22 | Outpatient (CLI) | payer MEDICARE, BC | LOC: M WHC 08:47 | PROVIDERS: ATTEND Specialist | DX: D47.2 Monoclonal gammopathy (principal); Z79.899 Other long term (current) drug therapy; M85.88 Other specified disorders of bone density and structure, other site ==

== ENCOUNTER → 2024-04-17 | Outpatient (CLI) | payer MEDICARE, BC ==
[~2024-04-17] MED LIST changes: +ALEN70TA87 PO
== END ==
LOC: M RAD 06:18
PROVIDERS: ATTEND Nurse Practitioner Adult Health
DX: M48.061 Spinal stenosis, lumbar region without neurogenic claudication (principal); M47.816 Spondylosis without myelopathy or radiculopathy, lumbar region; M47.817 Spondylosis without myelopathy or radiculopathy, lumbosacral region

== ENCOUNTER → 2024-05-02 | Outpatient (REF) | payer MEDICARE, BC | LOC: M SFHCPLAZ 17:12 | PROVIDERS: ATTEND Nurse Practitioner Adult Health | DX: R09.81 Nasal congestion (principal) ==

== ENCOUNTER → 2024-05-28 | Outpatient (CLI) | payer MEDICARE, BC ==
[2024-05-28 17:31] LABS: BASO % 0.5 % (0.0-1.0); EOS # 0.2 10^3/uL (0.0-0.5); EOS % 2.5 % (0.0-3.0); HEMATOCRIT 32.1 % (36.0-47.0); HEMOGLOBIN 10.5 g/dl (12.0-15.5); LYMPH # 2.2 10^3/uL (1.5-5.0); LYMPH % 34.1 % (24.0-44.0); MEAN CORPUSCULAR HEMOGLOBIN 31.5 pg (27.0-33.0); MEAN CORPUSCULAR HGB CONC 32.7 g/dl (32.0-36.5); MEAN CORPUSCULAR VOLUME 96.4 fl (80.0-96.0); MONO # 0.6 10^3/uL (0.0-0.8); MONO % 9.9 % (2.0-8.0); NEUTROPHILS # 3.3 10^3/uL (1.5-8.5); NEUTROPHILS % 52.5 % (36.0-66.0); PLATELET COUNT, AUTOMATED 309 10^3/uL (150-450); RED BLOOD COUNT 3.33 10^6/uL (4.00-5.40); WHITE BLOOD COUNT 6.3 10^3/uL (4.0-10.0)
[2024-05-28 17:44] LABS: HEMATOCRIT 32.2 % (36.0-47.0)
[2024-05-28 18:02] LABS: TOTAL IRON BINDING CAPACITY 373 UG/DL (250-425)
[2024-05-28 18:03] LABS: ALBUMIN 3.8 G/DL (3.2-5.2); ALKALINE PHOSPHATASE 66 U/L (35-104); ALT/SGPT 16 U/L (7.0-40); AST/SGOT 14 U/L (<34); BILIRUBIN,TOTAL 0.5 MG/DL (0.3-1.2); BLOOD UREA NITROGEN 13 MG/DL (9-23); CALCIUM LEVEL 9.2 MG/DL (8.3-10.6); CARBON DIOXIDE LEVEL 30 MMOL/L (20-31); CHLORIDE LEVEL 101 MMOL/L (98-107); GLOMERULAR FILTRATION RATE > 60.0 (>45); GLUCOSE, FASTING 89 MG/DL (74-106); IRON (FE) 81 UG/DL (50-170); PERCENT SATURATION 21.7 % (13.2-45.0); POTASSIUM SERUM 4.2 MMOL/L (3.5-5.1); SODIUM LEVEL 136 MMOL/L (136-145); TOTAL PROTEIN 10.4 G/DL (5.7-8.2)
[2024-05-28 18:04] LABS: THYROID STIMULATING HORMONE 3.145 uIU/ML (0.55-4.78)
[2024-05-28 18:05] LABS: FERRITIN 30.5 NG/ML (7.3-270.7); FREE T4 1.05 NG/DL (0.89-1.76); VITAMIN B12 LEVEL 378 PG/ML (211-911)
[2024-05-30 07:27] LABS: PROTEIN, TOTAL SO 9.9 g/dL (6.1-8.1)
== END ==
LOC: M PLALAB 16:39
PROVIDERS: ATTEND Family Medicine
DX: D50.0 Iron deficiency anemia secondary to blood loss (chronic) (principal); I10 Essential (primary) hypertension; E53.8 Deficiency of other specified B group vitamins; E03.9 Hypothyroidism, unspecified; D47.2 Monoclonal gammopathy; I50.32 Chronic diastolic (congestive) heart failure

== ENCOUNTER → 2024-05-29 | Outpatient (CLI) | payer MEDICARE, BC | LOC: M PAIN 08:00 | PROVIDERS: ATTEND Nurse Practitioner Family | DX: M51.16 Intervertebral disc disorders with radiculopathy, lumbar region (principal); M47.816 Spondylosis without myelopathy or radiculopathy, lumbar region; M79.10 Myalgia, unspecified site; G89.29 Other chronic pain; C90.00 Multiple myeloma not having achieved remission; K58.9 Irritable bowel syndrome, unspecified; J45.909 Unspecified asthma, uncomplicated; I27.20 Pulmonary hypertension, unspecified; G47.33 Obstructive sleep apnea (adult) (pediatric); E66.9 Obesity, unspecified; E53.8 Deficiency of other specified B group vitamins; E03.9 Hypothyroidism, unspecified; F41.9 Anxiety disorder, unspecified; I10 Essential (primary) hypertension; Z79.899 Other long term (current) drug therapy; Z79.890 Hormone replacement therapy; Z88.2 Allergy status to sulfonamides; Z88.8 Allergy status to other drugs, medicaments and biological substances; Z91.048 Other nonmedicinal substance allergy status; Z68.43 Body mass index [BMI] 50.0-59.9, adult ==

== ENCOUNTER 2024-06-18 09:59 | Outpatient (CLI) | payer MEDICARE, BC ==
[~2024-06-18] VITALS: Ht 170.2 cm; Wt 152.0 kg
[~2024-06-18 09:59] MED LIST changes: +ALBUTEROL SULFATE 2.5MG/0.5ML INH NEB SOLN INH PRN; +EPINEPHrine INJ 1 MG/ML 1ML AMP IM PRN; +diphenhydrAMINE 50MG/ML VIAL IV PRN; +methylPREDNISolone 125MG 2ML VIAL IV PRN
[2024-06-18 10:10] VITALS: BP 154/74; O2SAT 100
[2024-06-18] MEDS: FERRIC CARBOXYMALTOSE 750 MG (VIAL MATE) IN 100ML NS IV ONE (10:24)
[2024-06-18 11:10] VITALS: BP 144/77; O2SAT 99
== END 2024-06-18 11:10 | disposition home or self-care (01) ==
LOC: M INFU 09:59
PROVIDERS: ATTEND Family Medicine
DX: D50.9 Iron deficiency anemia, unspecified (principal); Z88.2 Allergy status to sulfonamides
CPT/HCPCS: 96365; J1439

== ENCOUNTER → 2024-07-13 | Outpatient (CLI) | payer MEDICARE, BC ==
[~2024-07-13] MED LIST changes: -ALBUTEROL SULFATE 2.5MG/0.5ML INH NEB SOLN INH PRN; -EPINEPHrine INJ 1 MG/ML 1ML AMP IM PRN; +METO1TAB33; +OMEP40CA4 PO; +TRAM50TA2; -diphenhydrAMINE 50MG/ML VIAL IV PRN; -methylPREDNISolone 125MG 2ML VIAL IV PRN
== END ==
LOC: M PAIN 09:15
PROVIDERS: ATTEND Nurse Practitioner Family
DX: M79.18 Myalgia, other site (principal); G89.29 Other chronic pain; C90.00 Multiple myeloma not having achieved remission; J45.909 Unspecified asthma, uncomplicated; I27.20 Pulmonary hypertension, unspecified; G47.33 Obstructive sleep apnea (adult) (pediatric); E66.9 Obesity, unspecified; E53.8 Deficiency of other specified B group vitamins; E03.9 Hypothyroidism, unspecified; F41.9 Anxiety disorder, unspecified; I10 Essential (primary) hypertension; Z79.01 Long term (current) use of anticoagulants; Z79.890 Hormone replacement therapy; Z79.891 Long term (current) use of opiate analgesic; Z79.899 Other long term (current) drug therapy; Z88.2 Allergy status to sulfonamides; Z88.8 Allergy status to other drugs, medicaments and biological substances; Z91.048 Other nonmedicinal substance allergy status; Z68.43 Body mass index [BMI] 50.0-59.9, adult

== ENCOUNTER → 2024-07-19 | Outpatient (REF) | payer MEDICARE, BC | LOC: M SFHCWAGY 14:38 | PROVIDERS: ATTEND Nurse Practitioner Family | DX: N73.9 Female pelvic inflammatory disease, unspecified (principal) ==

== ENCOUNTER → 2024-09-12 | Outpatient (CLI) | payer MEDICARE, BC ==
[~2024-09-12] MED LIST changes: +DENO60SY2 SC; -PROL60SO SC
[2024-09-12 11:09] LABS: BLOOD UREA NITROGEN 8 MG/DL (9-23); CALCIUM LEVEL 8.4 MG/DL (8.3-10.6); CARBON DIOXIDE LEVEL 25 MMOL/L (20-31); CHLORIDE LEVEL 107 MMOL/L (98-107); CREATININE FOR GFR 0.56 MG/DL (0.55-1.30); GLOMERULAR FILTRATION RATE > 60.0 (>45); GLUCOSE, FASTING 103 MG/DL (74-106); SODIUM LEVEL 139 MMOL/L (136-145)
== END ==
LOC: M LAB 09:52
PROVIDERS: ATTEND Internal Medicine Cardiovascular Disease
DX: I42.9 Cardiomyopathy, unspecified (principal); I48.91 Unspecified atrial fibrillation; I10 Essential (primary) hypertension; E11.9 Type 2 diabetes mellitus without complications; E87.6 Hypokalemia

== ENCOUNTER → 2024-09-12 | Outpatient (CLI) | payer MEDICARE, BC ==
[2024-09-12 11:09] LABS: FREE T4 1.02 NG/DL (0.89-1.76); THYROID STIMULATING HORMONE 4.638 uIU/ML (0.55-4.78)
[2024-09-12 11:10] LABS: HEMOGLOBIN A1c 5.5 % (4.0-6.0)
== END ==
LOC: M LAB 09:55
PROVIDERS: ATTEND Internal Medicine Endocrinology, Diabetes & Metabolism
DX: E03.9 Hypothyroidism, unspecified (principal); E04.2 Nontoxic multinodular goiter; R73.03 Prediabetes; I42.9 Cardiomyopathy, unspecified; I48.91 Unspecified atrial fibrillation; I10 Essential (primary) hypertension; E11.9 Type 2 diabetes mellitus without complications; E87.6 Hypokalemia

== ENCOUNTER → 2024-10-03 | Outpatient (CLI) | payer MEDICARE, BC ==
[~2024-10-03] MED LIST changes: +PARO5TAB; +POTA-151
== END ==
LOC: M PLALAB 11:19
PROVIDERS: ATTEND Internal Medicine
DX: E55.9 Vitamin D deficiency, unspecified (principal)

== ENCOUNTER → 2024-10-03 | Outpatient (CLI) | payer MEDICARE, BC ==
[~2024-10-03] MED LIST changes: -PRED50TA PO; +PRED50TA57 PO; +PREG-35 PO; -PREG100CA PO
[2024-10-03 15:54] LABS: ALBUMIN 3.6 G/DL (3.2-5.2); ALKALINE PHOSPHATASE 63 U/L (35-104); ALT/SGPT 17 U/L (7.0-40); AST/SGOT 19 U/L (<34); BILIRUBIN,TOTAL 0.5 MG/DL (0.3-1.2); BLOOD UREA NITROGEN 9 MG/DL (9-23); CALCIUM LEVEL 8.5 MG/DL (8.3-10.6); CARBON DIOXIDE LEVEL 27 MMOL/L (20-31); CHLORIDE LEVEL 106 MMOL/L (98-107); CREATININE FOR GFR 0.62 MG/DL (0.55-1.30); GLOMERULAR FILTRATION RATE > 60.0 (>45); GLUCOSE, FASTING 91 MG/DL (74-106); POTASSIUM SERUM 4.4 MMOL/L (3.5-5.1); SODIUM LEVEL 138 MMOL/L (136-145); TOTAL PROTEIN 10.4 G/DL (5.7-8.2)
== END ==
LOC: M PLALAB 11:17
PROVIDERS: ATTEND Nurse Practitioner Adult Health
DX: M51.16 Intervertebral disc disorders with radiculopathy, lumbar region (principal); I48.91 Unspecified atrial fibrillation; R09.89 Other specified symptoms and signs involving the circulatory and respiratory systems

== ENCOUNTER → 2024-10-20 | Outpatient (CLI) | payer MEDICARE, BC ==
[~2024-10-20] MED LIST changes: +PRED50TA PO; -PRED50TA57 PO; -PREG-35 PO; +PREG100CA PO
[2024-10-20 12:04] LABS: HEMATOCRIT 31.2 % (36.0-47.0); HEMOGLOBIN 10.3 g/dl (12.0-15.5); MEAN CORPUSCULAR HEMOGLOBIN 32.2 pg (27.0-33.0); MEAN CORPUSCULAR VOLUME 97.5 fl (80.0-96.0); PLATELET COUNT, AUTOMATED 246 10^3/uL (150-450); WHITE BLOOD COUNT 5.3 10^3/uL (4.0-10.0)
[2024-10-20 12:38] LABS: ALBUMIN 3.4 G/DL (3.2-5.2); ALKALINE PHOSPHATASE 62 U/L (35-104); ALT/SGPT 17 U/L (7.0-40); AST/SGOT 18 U/L (<34); BILIRUBIN,TOTAL 0.4 MG/DL (0.3-1.2); BLOOD UREA NITROGEN 13 MG/DL (9-23); CALCIUM LEVEL 8.6 MG/DL (8.3-10.6); CARBON DIOXIDE LEVEL 28 MMOL/L (20-31); CHLORIDE LEVEL 104 MMOL/L (98-107); CREATININE FOR GFR 0.66 MG/DL (0.55-1.30); GLOMERULAR FILTRATION RATE > 90.0 (>45); GLUCOSE, FASTING 96 MG/DL (74-106); SODIUM LEVEL 138 MMOL/L (136-145)
== END ==
LOC: M LAB 11:40
PROVIDERS: ATTEND Internal Medicine Cardiovascular Disease
DX: R06.09 Other forms of dyspnea (principal)

== ENCOUNTER → 2024-10-23 | Outpatient (CLI) | payer MEDICARE, BC | LOC: M RAD 09:53 | PROVIDERS: ATTEND Internal Medicine Cardiovascular Disease | DX: R06.09 Other forms of dyspnea (principal) ==

== ENCOUNTER → 2025-01-08 | Outpatient (REF) | payer MEDICARE, BC ==
[~2025-01-08] MED LIST changes: +BREO1INH3 INH; +CALC1TAB63 PO; +D31000CA6 PO; +IRBE300T25 PO; -METO1TAB33; +METO1TAB33 PO; -PARO5TAB; +PARO5TAB PO; -POTA-151; +POTA-151 PO; -PRED50TA PO; +PRED50TA57 PO; +PREG-35 PO; -PREG100CA PO; +PRES1CAP PO; -TRAM50TA2; +TRAM50TA2 PO
== END ==
LOC: M SFHCPLAZ 12:59
PROVIDERS: ATTEND Nurse Practitioner Adult Health
DX: R35.0 Frequency of micturition (principal)

== ENCOUNTER → 2025-01-10 | Outpatient (CLI) | payer MEDICARE, BC | LOC: M WHC 10:14 | PROVIDERS: ATTEND Nurse Practitioner Adult Health | DX: Z12.31 Encounter for screening mammogram for malignant neoplasm of breast (principal); R92.313 Mammographic fatty tissue density, bilateral breasts ==

== ENCOUNTER → 2025-03-06 | Outpatient (REF) | payer MEDICARE, BC ==
[~2025-03-06] MED LIST changes: -PROZ20CA11 PO; +PROZ20CA12 PO
== END ==
LOC: M PLALAB 11:32
PROVIDERS: ATTEND Nurse Practitioner Family
DX: N89.8 Other specified noninflammatory disorders of vagina (principal)

== ENCOUNTER → 2025-05-09 | Outpatient (REF) | payer MEDICARE, BC | LOC: M PLALAB 10:14 | PROVIDERS: ATTEND Physician Assistant | DX: R30.0 Dysuria (principal); N76.0 Acute vaginitis ==